=== PATIENT | female | born 1970 | race Caucasian/White ===

== ENCOUNTER 2019-07-11 13:20 | Emergency (ER) | payer OTHER ==
[~2019-07-11] VITALS: Ht 172.7 cm; Wt 66.7 kg
[~2019-07-11 13:20] MED LIST: DEPO-SUBQ104 MG/0.6 SUB-Q; NORCO 7.5-3251 EACH PO
--- NOTE | 2019-07-11 19:05 | EKG ---
[facility] [address] [facility] [place], [place] [address] Signed Normal sinus rhythm Low voltage QRS Borderline ECG No previous ECGs available Confirmed by PITER MOULTON DO ([id number]) on 07/11/2019 7:05:13 PM Electronically Signed By: PITER MOULTON DO 07/11/19 1905 PATIENT NAME: DEVIKA CHAPMAN Electrocardiogram DATE OF : 68 PHYSICIAN: PITER MOULTON DO REPORT #: [id number] REPORT IS CONFIDENTIAL AND NOT TO BE RELEASED WITHOUT AUTHORIZATION
== END 2019-07-11 19:10 | disposition short-term general hospital (02) ==
LOC: ED 13:20
DX: A41.9 Sepsis, unspecified organism (principal); S22.42XA Multiple fractures of ribs, left side, initial encounter for closed fracture; J93.9 Pneumothorax, unspecified; N13.2 Hydronephrosis with renal and ureteral calculous obstruction; W22.8XXA Striking against or struck by other objects, initial encounter; F17.200 Nicotine dependence, unspecified, uncomplicated
CPT/HCPCS: 71260; 74177; 80053; 81001; 83605; 84484; 85025; 85379; 87088; 93005; 93010; 99285-25; 99406; J0696; J1170; J1885; J2405; J7030; Q9967

== ENCOUNTER 2019-07-25 10:24 | Emergency (ER) | payer OTHER ==
[~2019-07-25] VITALS: Ht 172.7 cm; Wt 65.8 kg
--- OUTSIDE RECORDS SUMMARY | ~2019-07-25 | XMS | Encounter Summary ---
Demographics + + + | Address | [address] | | | [place] [address] | + + + | Home Phone | | + + + | Preferred Language | Unknown | + + + | Marital Status | Single | + + + | Gnosticism Affiliation | Unknown | + + + | Race | Unknown | + + + | Ethnic Group | Unknown | + + + Author + + + | Author | [facility] | | | and [place] | + + + | Organization | [facility] | | | and [place] | + + + | Address | Unknown | + + + | Phone | Unavailable | + + + Support + + +---------+ + | Name | Relationship | Address | Phone | + + +---------+ + | Lashonda Gómez | ECON | Unknown | | + + +---------+ + Care Team Providers + +------+ + | Care Accounting Machine Servicer Name | Role | Phone | + +------+ + PCP | Unavailable | + +------+ + Encounter Details +--------+ + + + + | Date | Type | Department | Care Team | Description | +--------+ + + + + | 12/18/ | Hospital | [facility] | Corey Sorensen | | | 1998 | Encounter | CONVERSION [address] | [address] | | | | | [place] | [place] | | | | | [place], [place] | [place] [address] | | | | | [address] | [phone] | | | | | [phone] | | | +--------+ + + + + Social History + +-------+ +--------+------+ | Tobacco Use | Types | Packs/Day | Years | Date | | | | | Used | | + +-------+ +--------+------+ | Never Assessed | | | | | + +-------+ +--------+------+ + + + | Sex Assigned at | Date Recorded | | | | + + + | Not on file | | + + + + + + + | Job Start Date | Occupation | Industry | + + + + | Not on file | Not on file | Not on file | + + + + + + + + | Travel History | Travel Start | Travel End | + + + + + + | No recent travel history available. | + + documented as of this encounter Plan of Treatment Not on filedocumented as of this encounter Visit Diagnoses Not on filedocumented in this encounter"
--- OUTSIDE RECORDS SUMMARY | ~2019-07-25 | XMS | Encounter Summary ---
Demographics + + + | Address | [address] | | | [place] [address] | + + + | Home Phone | | + + + | Preferred Language | Unknown | + + + | Marital Status | Single | + + + | Caodaism Affiliation | NRP | + + + | Race | Unknown | + + + | Ethnic Group | or | + + + Author + + + | Author | [facility] | + + + | Organization | [facility] | + + + | Address | Unknown | + + + | Phone | Unavailable | + + + Support + + +---------+ + | Name | Relationship | Address | Phone | + + +---------+ + | Lashonda Gómez | ECON | Unknown | | + + +---------+ + Care Team Providers + +------+ + | Care Horticultural Specialty Grower Field Name | Role | Phone | + +------+ + | Evi Pozo MD | PCP | | + +------+ + Encounter Details +--------+--------+ + + + | Date | Type | Department | Care Team | Description | +--------+--------+ + + + | 07/11/ | Intake | Transfer Center | | N/A | | 2019 | | [address] | | | | | | [place], | | | | | | [place] [address] | | | +--------+--------+ + + + Social History + +-------+ [...] as of this encounter Plan of Treatment +--------+---------+ + + + | Date | Type | Specialty | Care Team | Description | +--------+---------+ + + + | 08/02/ | Office | Urology | Jc Kovacs MD | | | 2018 | Visit | | [address] | | | | | | [place], [place] | | | | | | [address] | | | | | | [phone] | | | | | | | | +--------+---------+ + + + | 08/02/ | Office | Pre-operative | [address], [facility] [address] | | | 2019 | Visit | Medicine | [address] | | | | | | [place] [address] | | +--------+---------+ + + + documented as of this encounter Visit Diagnoses Not on filedocumented in this encounter"
--- OUTSIDE RECORDS SUMMARY | ~2019-07-25 | XMS | Clinical Summary ---
Demographics + + + | Address | [address] | | | [place] [address] | + + + | Home Phone | | + + + | Preferred Language | Unknown | + + + | Marital Status | Single | + + + | Episcopalian Affiliation | NRP | + + + | Race | Unknown | + + + | Ethnic Group | or | + + + Author + + + | Author | [facility] | + + + | Organization | [facility] | + + + | Address | Unknown | + + + | Phone | Unavailable | + + + Support + + +---------+ + | Name | Relationship | Address | Phone | + + +---------+ + | Lashonda Gómez | ECON | Unknown | | + + +---------+ + Care Team Providers + +------+ + | Care Transport Conductor Name | Role | Phone | + +------+ + | Evi Pozo MD | PCP | | + +------+ + Source Comments VIKKI is fully live on both [facility] and [facility] InPatient.[facility] Allergies No Known Allergies Medications + + + +---------+------+------+-------+ | Medication | Sig | Dispensed | Refills | Star | End | Statu | | | | | | t | Date | s | | | | | | Date | | | + + + +---------+------+------+-------+ | acetaminophen 500 | Take 2 tablets by | | 0 | 11/2 | | Activ | | mg oral tablet | mouth three times | | | 1/20 | | e | | | daily. | | | 19 | | | + + + +---------+------+------+-------+ | oxyCODONE | Take 1 tablet by | 5 | 0 | 11/2 | | Activ | | (immediate release) | mouth every six | tablet | | 1/20 | | e | | 5 mg oral tablet | hours as needed for | | | 19 | | | | | breakthrough pain. | | | | | | + + + +---------+------+------+-------+ | senna-docusate | Take 1 tablet by | 40 | 0 | 11/2 | | Activ | | (SENNA-S) 8.6-50 mg | mouth two times | tablet | | 1/20 | | e | | oral tablet | daily. | | | 19 | | | + + + +---------+------+------+-------+ | | Take 1 tablet by | 28 | 0 | 11/2 | 12/0 | Activ | | trimethoprim-sulfame | mouth two times | tablet | | 2/20 | 6/20 | e | | thoxazole 160-800 mg | daily for 14 days. | | | 19 | 19 | | | oral | Indications: UTI | | | | | | | tabletIndications: | | | | | | | | urinary tract | | | | | | | | infection | | | | | | | + + + +---------+------+------+-------+ | cefDINir 300 mg | Take 1 capsule by | 6 | 0 | 06/24 | 06/24 | Expir | | oral capsule | mouth two times | capsule | | 09/11 | 12/10 | ed | | | daily for 3 days. | | | 19 | 19 | | + + + +---------+------+------+-------+ Active Problems + + + | Problem | Noted Date | + + + | Syncope, unspecified syncope type | 07/12/2019 | + + + | Closed fracture of multiple ribs of left side, initial encounter | 07/12/2019 | + + + | Pneumothorax, unspecified type | 07/12/2019 | + + + | Nephrolithiasis | 07/12/2019 | + + + | Hydronephrosis with urinary obstruction due to ureteral calculus | 07/12/2019 | + + + Encounters +--------+ + + + + | Date | Type | Specialty | Care Team | Description | +--------+ + + + + | 07/24/ | Telephone | Urology | Jc Kovacs MD | Nausea and vomiting | | 2018 | | | | | +--------+ + + + + | 07/17/ | Telephone | Urology | Jc Kovacs MD | Needs Paperwork | | 2018 | | | | | +--------+ + + + + | 07/14/ | Refill | Urology | Melania Spaulding MD | Medication | | 2018 | | | | Adjustment (Based | | | | | | off new growth in | | | | | | urine culture) | +--------+ + + + + | 07/14/ | Classer | Urology | Jc Kovacs MD | Kidney stone on left | | 2018 | | | | side (Primary Dx) | +--------+ + + + + | 07/13/ | Telephone | Obstetrics & | Juan Hernandez, | Care Coordination | | 2019 | | Gynecology | RN | | +--------+ + + + + | 07/13/ | Pharmacy | | | | | 2018 | Visit | | | | +--------+ + + + + | 07/12/ | Travel | | | | | 2019 | | | | | +--------+ + + + + | 07/11/ | Hospital | Adult Acute Care | Beto Momin MD | | | 2019 - | Encounter | | Lisa Jalloh | | | | | | Jamilah Levin | | | 07/13/ | | | DO Chloe | | | 2018 | | | | | +--------+ + + + + | 07/11/ | Intake | | | N/A | | 2019 | | | | | +--------+ + + + + from Last 3 Months Social History + +-------+ +--------+------+ | Tobacco [...] recent travel history available. | + + Last Filed Vital Signs + + + + + | Vital Sign | Reading | Time Taken | Comments | + + + + + | Blood Pressure | 97/63 | 07/13/2019 8:44 AM | | | | | PST | | + + + + + | Pulse | 70 | 07/13/2019 8:44 AM | | | | | PST | | + + + + + | Temperature | 36.6 C (97.9 F) | 07/13/2019 8:44 AM | | | | | PST | | + + + + + | Respiratory Rate | 16 | 07/13/2019 8:44 AM | | | | | PST | | + + + + + | Oxygen Saturation | 98% | 07/13/2019 8:44 AM | | | | | PST | | + + + + + | Inhaled Oxygen | - | - | | | Concentration | | | | + + + + + | Weight | - | - | | + + + + + | Height | - | - | | + + + + + | Body Mass Index | - | - | | + + + + + Plan of Treatment +--------+---------+ + + + | Date | Type | Specialty | Care Team | Description | +--------+---------+ + + + | 08/02/ | Office | Urology | Duty, Jc Nunn MD | | | 2019 | Visit | | [address] | | | | | | [place], [place] | | | | | | [address] | | | | | | [phone] | | | | | | | | +--------+---------+ + + + | 08/02/ | Office | Pre-operative | 3, [facility] [address] | | | 2019 | Visit | Medicine | [address] | | | | | | [place] [address] | | +--------+---------+ + + + + + + + + | Health Maintenance | Due Date | Last Done | Comments | + + + + + | Influenza (Flu) | | 07/13/2009 | | | vaccination (#1) | 9 | | | + + + + + | Pneumococcal | Aged Out | | No longer eligible | | vaccination | | | based on patient's | | | | | age to complete this | | | | | topic | + + + + + Procedures + +--------+ + + + | Procedure Name | Priori | Date/Time | Associated Diagnosis | Comments | | | ty | | | | + +--------+ + + + | CBC (HEMOGRAM) ONLY | Urgent | 07/13/2019 | | Results for this | | | | 4:39 AM | | procedure are in the | | | | PST | | results section. | + +--------+ + + + | BASIC METABOLIC SET | Urgent | 07/13/2019 | | Results for this | | (NA, K, CL, TCO2, | | 4:39 AM | | procedure are in the | | BUN, CR, GLU, CA) | | PST | | results section. | + +--------+ + + + | CBC ONLY | Urgent | 07/13/2019 | | Results for this | | | | 4:39 AM | | procedure are in the | | | | PST | | results section. | + +--------+ + + + | URINE CULTURE WORKUP | Routin | 07/12/2019 | | Results for this | | | e | 3:43 PM | | procedure are in the | | | | PST | | results section. | + +--------+ + + + | CULTURE, URINE [facility] | Routin | 07/12/2019 | | Results for this | | | e | 3:43 PM | | procedure are in the | | | | PST | | results section. | + +--------+ + + + | CULTURE, URINE BACTI | Routin | 07/12/2019 | | Results for this | | | e | 3:43 PM | | procedure are in the | | | | PST | | results section. | + +--------+ + + + | IR NEPHROSTOMY | Urgent | 07/12/2019 | | Results for this | | PLACEMENT | | 3:34 PM | | procedure are in the | | | | PST | | results section. | + +--------+ + + + | HCG URINE, POC | Urgent | 07/12/2019 | Syncope, | Results for this | | | | 12:11 PM | unspecified syncope | procedure are in the | | | | PST | type | results section. | + +--------+ + + + | BASIC METABOLIC SET | Urgent | 07/12/2019 | | Results for this | | (NA, K, CL, TCO2, | | 5:07 AM | | procedure are in the | | BUN, CR, GLU, CA) | | PST | | results section. | + +--------+ + + + | CONFIRMATORY ABO/RH | Urgent | 07/12/2019 | | Results for this | | | | 1:21 AM | | procedure are in the | | | | PST | | results section. | + +--------+ + + + | 12 LEAD ECG | Routin | 07/11/2019 | | Results for this | | | e | 10:43 PM | | procedure are in the | | | | PST | | results section. | + +--------+ + + + | X-RAY PORTABLE CHEST | Urgent | 07/11/2019 | | Results for this | | 1 VIEW | | 10:38 PM | | procedure are in the | | | | PST | | results section. | + +--------+ + + + | CULTURE, URINE [facility] | Routin | 07/11/2019 | | Results for this | | | e | 10:31 PM | | procedure are in the | | | | PST | | results section. | + +--------+ + + + | CBC (HEMOGRAM) ONLY | Urgent | 07/11/2019 | | Results for this | | | | 10:31 PM | | procedure are in the | | | | PST | | results section. | + +--------+ + + + | UA, DIPSTICK ONLY | Urgent | 07/11/2019 | | Results for this | | | | 10:31 PM | | procedure are in the | | | | PST | | results section. | + +--------+ + + + | TROPONIN I, PLASMA | Urgent | 07/11/2019 | | Results for this | | | | 10:31 PM | | procedure are in the | | | | PST | | results section. | + +--------+ + + + | URINE SCREEN FOR | Urgent | 07/11/2019 | | Results for this | | CULTURE | | 10:31 PM | | procedure are in the | | | | PST | | results section. | + +--------+ + + + | URINE, MICROSCOPIC | Urgent | 07/11/2019 | | Results for this | | EXAM | | 10:31 PM | | procedure are in the | | | | PST | | results section. | + +--------+ + + + | COAGULOPATHY PANEL | Urgent | 07/11/2019 | | Results for this | | (INR,APTT,FIBRINOGEN | | 10:31 PM | | procedure are in the | | ) | | PST | | results section. | + +--------+ + + + | CBC ONLY | Urgent | 07/11/2019 | | Results for this | | | | 10:31 PM | | procedure are in the | | | | PST | | results section. | + +--------+ + + + | ETHANOL (ALCOHOL), | Urgent | 07/11/2019 | | Results for this | | BLOOD | | 10:31 PM | | procedure are in the | | | | PST | | results section. | + +--------+ + + + | GLUCOSE, PLASMA | Urgent | 07/11/2019 | | Results for this | | | | 10:31 PM | | procedure are in the | | | | PST | | results section. | + +--------+ + + + | ANTIBODY SCREEN | Urgent | 07/11/2019 | | Results for this | | | | 10:29 PM | | procedure are in the | | | | PST | | results section. | + +--------+ + + + | ABO & RH TYPE | Urgent | 07/11/2019 | | Results for this | | | | 10:29 PM | | procedure are in the | | | | PST | | results section. | + +--------+ + + + | TYPE AND SCREEN | Urgent | 07/11/2019 | | Results for this | | | | 10:29 PM | | procedure are in the | | | | PST | | results section. | + +--------+ + + + | BG-LAC,POC ISTAT | Urgent | 07/11/2019 | | Results for this | | | | 10:21 PM | | procedure are in the | | | | PST | | results section. | + +--------+ + + + from Last 3 Months Results CBC (HEMOGRAM) ONLY (07/13/2019 4:39 AM PST)Only the most recent of 2 results within the t dominga period is included. + + + + + + | Component | Value | Ref Range | Performed | Pathologist | | | | | At | Signature | + + + + + + | WHITE CELL | 5.76 | 3.50 - 10.80 | [facility] | | | COUNT | | K/cu mm | LABORATORY | | | | | | SERVICES, | | | | | | CORE | | + + + + + + | RED CELL | 3.53 (L) | 4.00 - 5.20 | [facility] | | | COUNT | | M/cu mm | LABORATORY | | | | | | SERVICES, | | | | | | CORE | | + + + + + + | HEMOGLOBIN | 9.9 (L) | 12.0 - 16.0 | [facility] | | | | | g/dL | LABORATORY | | | | | | SERVICES, | | | | | | CORE | | + + + + + + | HEMATOCRIT | 31.7 (L) | 36.0 - 46.0 % | [facility] | | | | | | LABORATORY | | | | | | SERVICES, | | | | | | CORE | | + + + + + + | MCV | 89.8 | 80.0 - 100.0 fL | [facility] | | | | | | LABORATORY | | | | | | SERVICES, | | | | | | CORE | | + + + + + + | MCHC | 31.2 (L) | 32.0 - 36.0 | [facility] | | | | | g/dL | LABORATORY | | | | | | SERVICES, | | | | | | CORE | | + + + + + + | RDW SD | 43.2 | 35.1 - 46.3 fL | [facility] | | | | | | LABORATORY | | | | | | SERVICES, | | | | | | CORE | | + + + + + + | PLATELET | 376 | 150 - 400 K/cu | [facility] | | | COUNT | | mm | LABORATORY | | | | | | SERVICES, | | | | | | CORE | | + + + + + + | MPV | 9.4 (L) | 9.7 - 12.3 fL | [facility] | | | | | | LABORATORY | | | | | | SERVICES, | | | | | | CORE | | + + + + + + | NRBC% | 0.0 | 0.0 - 0.3 % | [facility] | | | | | | LABORATORY | | | | | | SERVICES, | | | | | | CORE | | + + + + + + | NRBC# | 0.00 | 0.00 - 0.02 | [facility] | | | | | K/cu mm | LABORATORY | | | | | | SERVICES, | | | | | | CORE | | + + + + + + + + | Specimen | + + | Blood - Blood | | (substance) | + + + + + + + | Performing | Address | City/State/Zipcode | Phone Number | | Organization | | | | + + + + + | [facility] | [phone] | [place] [address] | | | SERVICES, CORE | [address] | | | + + + + + BASIC METABOLIC SET (NA, K, CL, TCO2, BUN, CR, GLU, CA) (07/13/2019 4:39 AM PST)Only the m gatito recent of 2 results within the time period is included. + +---------+ + + + | Component | Value | Ref Range | Performed | Pathologist | | | | | At | Signature | + +---------+ + + + | GLUCOSE, | 116 (H) | 70 - 99 mg/dL | [facility] | | | PLASMA | | | LABORATORY | | | (LAB) | | | SERVICES, | | | | | | CORE | | + +---------+ + + + | BUN, PLASMA | 12 | 6 - 20 mg/dL | [facility] | | | (LAB) | | | LABORATORY | | | | | | SERVICES, | | | | | | CORE | | + +---------+ + + + | CREATININE | 1.09 | 0.60 - 1.10 | [facility] | | | PLASMA | | mg/dL | LABORATORY | | | (LAB) | | | SERVICES, | | | | | | CORE | | + +---------+ + + + | EGFR | >60 | >60 mL/min | [facility] | | | - | | | LABORATORY | | | KYRGYZ | | | SERVICES, | | | | | | CORE | | + +---------+ + + + | EGFR NON | 53 (L) | >60 mL/min | [facility] | | | -CLARE | | | LABORATORY | | | RICAN | | | SERVICES, | | | | | | CORE | | + +---------+ + + + | SODIUM, | 138 | 136 - 145 | [facility] | | | PLASMA | | mmol/L | LABORATORY | | | (LAB) | | | SERVICES, | | | | | | CORE | | + +---------+ + + + | POTASSIUM, | 3.6 | 3.4 - 5.0 | [facility] | | | PLASMA | | mmol/L | LABORATORY | | | (LAB) | | | SERVICES, | | | | | | CORE | | + +---------+ + + + | CHLORIDE, | 108 | 97 - 108 mmol/L | [facility] | | | PLASMA | | | LABORATORY | | | (LAB) | | | SERVICES, | | | | | | CORE | | + +---------+ + + + | TOTAL CO2, | 26 | 21 - 32 mmol/L | [facility] | | | PLASMA | | | LABORATORY | | | (LAB) | | | SERVICES, | | | | | | CORE | | + +---------+ + + + | CALCIUM, | 8.6 | 8.6 - 10.2 | [facility] | | | PLASMA | | mg/dL | LABORATORY | | | (LAB) | | | SERVICES, | | | | | | CORE | | + +---------+ + + + | ANION GAP | 4 | 4 - 11 mmol/L | [facility] | | | | | | LABORATORY | | | | | | SERVICES, | | | | | | CORE | | + +---------+ + + + | POTASSIUM | No Hemo | | [facility] | | | CMNT | | | LABORATORY | | | | | | SERVICES, | | | | | | CORE | | + +---------+ + + + + + | Specimen | + + | Blood - Blood | | (substance) | + + + + + | Narrative | Performed At | + + + | GFR is estimated using the MDRD equation recommended by the National | [facility] | | Kidney Disease Education Program. Estimated GFR Interpretive | LABORATORY | | Information: <60 mL/min/1.73 sq m Chronic Kidney | SERVICES, CORE | | Disease <15 mL/min/1.73 sq m Kidney Failure | | | Estimated GFR greater than 60 mL/min/1.73 sq m is of limited clinical | | | value. The MDRD equation is not valid in the following situations: | | | - Patients under 18 years of age - Severe malnutrition or obesity | | | - Vegetarian diet - Rapidly changing kidney function - Amputees, | | | paraplegics, or other muscle-wasting diseases | | + + + + + + + + | Performing | Address | City/State/Zipcode | Phone Number | | Organization | | | | + + + + + | [facility] | [address] | [place] [address] | | | SERVICES, CORE | [address] | | | + + + + + URINE CULTURE WORKUP (07/12/2019 3:43 PM PST) + + + + + + | Component | Value | Ref Range | Performed | Pathologist | | | | | At | Signature | + + + + + + | CULTURE | Coagulase negative | | [facility] | | | RESULT | staphylococcus species | | [facility] - | | | | (A) | | [facility] | | + + + + + + + + | Specimen | + + | Urine - Left kidney | | structure (body | | structure) | + + + + + | Narrative | Performed At | + + + | Culture Report: 30,000 cfu/ml Coagulase negative Staphylococcus | [facility] | | species | [facility] | | | [place] | + + + + + + + + | Organism | Antibiotic | Method | Susceptibility | + + + + + | Coagulase negative | Cefazolin | [facility] | Sensitive | | staphylococcus | | | | | species | | | | + + + + + | Coagulase negative | Nitrofurantoin | [facility] | Sensitive | | staphylococcus | | | | | species | | | | + + + + + | Coagulase negative | Oxacillin | [facility] | Sensitive | | staphylococcus | | | | | species | | | | + + + + + | Coagulase negative | Trimethoprim/Sulfa | [facility] | Sensitive | | staphylococcus | | | | | species | | | | + + + + + | Coagulase negative | Tetracycline | [facility] | Sensitive | | staphylococcus | | | | | species | | | | + + + + + | Coagulase negative | Vancomycin | [facility] | Sensitive | | staphylococcus | | | | | species | | | | + + + + + + + + + + | Performing | Address | City/State/Zipcode | Phone Number | | Organization | | | | + + + + + | [facility] | [address] | [place] [address] | | | [place] | | | | + + + + + CULTURE, URINE [facility] (07/12/2019 3:43 PM PST)Only the most recent of 2 results within the period is included. + + + + + + | Component | Value | Ref Range | Performed | Pathologist | | | | | At | Signature | + + + + + + | URINE | See Cx Results (A) | | [facility] | | | CULTURE | | | LABORATORY | | | [facility] | | | SERVICES, | | | | | | CORE | | + + + + + + + + | Specimen | + + | Urine - Left kidney | | structure (body | | structure) | + + + + + + + | Performing | Address | City/State/Zipcode | Phone Number | | Organization | | | | + + + + + | [facility] | [address] | [place] [address] | | | SERVICES, CORE | [address] | | | + + + + + IR NEPHROSTOMY PLACEMENT (07/12/2019 3:34 PM PST) + + | Specimen | + + | | + + + + + | Narrative | Performed At | + + + | Procedure: Left nephrostomy tube placement Primary can sorter: | [facility] | | Renny Arriaga MD Manager Wastewater attending can sorter: Shawn Macias VOICE | | Yung Balderas M.D. Preoperative diagnosis: Obstructive hydronephrosis | RECOGNITION 2 | | Postoperative diagnosis: Pyonephrosis + Operations: Operation | | | 1. [Ultrasound-guided access left mid- pole reji] Operation 2. | | | [10-Lao nephrostomy tube left renal pelvis Indications: | | | 48 year female with known obstructing calculus in the L renal pelvis | | | with recent syncopal episode concerning for infection Procedure: | | | The patient, procedure, and allergies were confirmed in the | | | presence of the patient by the attending.The attending physician was | | | present for the entire procedure. Written informed consent was | | | obtained in a PARQ conference with the patient. The procedure was | | | performed [with intravenous sedation]. The patient was prepped and | | | draped in the usual manner. The left collecting system was localized | | | with ultrasound and an image archived. Utilizing a local anesthetic | | | a [Chiba needle was advanced under ultrasound guidance into the left | | | mid pole reji. We tried to target an upper pole calyx. Clear urine | | | was initially obtained. A microwire was introduced allowing | | | placement of the 5-Lao coaxial access sheath. Contrast was | | | injected. Using flouroscopic guidance dilatation was performed over | | | a Amplatz guidewire with an 10-Lao dilator and an 10-Lao | | | multipurpose catheter was inserted with the pigtail formed in the | | | renal pelvis. The catheter was aspirated and fluid sent for culture. | | | Digital images were archived throughout the procedure. The | | | nephrostomy was sutured in place and placed to gravity drainage.] | | | Total fluoroscopic time: 2.7[ Fluoro frame rate: [7] Total | | | contrast: 10] The patient was evaluated and I determined that the | | | patient was appropriate for Moderate Sedation. Moderate sedation was | | | directly supervised by the attending physician and administered by IR | | | RN. Intra-service kccr-gu-[id number] start time: 14:55 Intra-service | | | rtwq-fp-klaw end time: 15:35 Versed 3 mg Fentanyl 150mcg Cipro 400 | | | mg Findings: [Left: There is hydronephrosis and hydroureter | | | with obstruction at the []. Clear urine was obtained initially, but | | | was later cloudy consistent with infection. The two large stones | | | were displace when forming the pigtail of the catheter. After | | | placement of the nephrostomy the urine is slightly blood-tinged and | | | there is moderate clot in the collecting system. A formal | | | nephrostogram was not performed.] Impression: 1. Left | | | pyonephrosis 2. Percutaneous placement left 10-Lao | | | nephrostomy tube via mid-pole calyx I have personally reviewed the | | | images and, if necessary, edited the report. I agree with the report | | | as now presented. Final signature: Yung Macias MD 07/14/2019 | | | 5:13 PM Preliminary: Yung Macias MD Dictation initiated: | | | Yung Macias MD 07/14/2019 3:29 PM | | + + + + + | Procedure Note | + + | Service Account, Radiant Res In Interface - 07/14/2019 5:14 PM PST Procedure: Left | | nephrostomy tube placement Primary can sorter: Renny Arriaga MD Manager Wastewater attending | | can sorter: Yung Macias M.D. Preoperative diagnosis: Obstructive hydronephrosis | | Postoperative diagnosis: Pyonephrosis+Operations: Operation 1. [Ultrasound-guided | | access left mid- pole reji] Operation 2. [10-Lao nephrostomy tube left renal pelvis | | Indications: 48 year female with known obstructing calculus in the L renal pelvis with | | recent syncopal episode concerning for infection Procedure: The patient, procedure, and | | allergies were confirmed in the presence of the patient by the attending.The attending | | physician was present for the entire procedure. Written informed consent was obtained in | | a PARQ conference with the patient. The procedure was performed [with intravenous | | sedation]. The patient was prepped and draped in the usual manner. The left collecting | | system was localized with ultrasound and an image archived. Utilizing a local | | anesthetic a [Chiba needle was advanced under ultrasound guidance into the left mid pole | | reji. We tried to target an upper pole calyx. Clear urine was initially obtained. A | | microwire was introduced allowing placement of the 5-Lao coaxial access sheath. | | Contrast was injected. Using flouroscopic guidance dilatation was performed over a | | Amplatz guidewire with an 10-Lao dilator and an 10-Lao multipurpose catheter was | | inserted with the pigtail formed in the renal pelvis. The catheter was aspirated and | | fluid sent for culture. Digital images were archived throughout the procedure. The | | nephrostomy was sutured in place and placed to gravity drainage.] Total fluoroscopic | | time: 2.7[ Fluoro frame rate: [7]Total contrast: 10] The patient was evaluated and I | | determined that the patient was appropriate for Moderate Sedation. Moderate sedation was | | directly supervised by the attending physician and administered by IR RN.Intra-service | | xgjh-xz-nial start time: 14:55Intra-service mrea-dr-gupd end time: 15:35Versed 3 | | mgFentanyl 150mcgCipro 400 mg Findings: [Left: There is hydronephrosis and hydroureter | | with obstruction at the []. Clear urine was obtained initially, but was later cloudy | | consistent with infection. The two large stones were displace when forming the pigtail | | of the catheter. After placement of the nephrostomy the urine is slightly blood-tinged | | and there is moderate clot in the collecting system. A formal nephrostogram was not | | performed.] Impression: 1. Left pyonephrosis 2. Percutaneous placement left | | 10-Lao nephrostomy tube via mid-pole calyx I have personally reviewed the images and, | | if necessary, edited the report. I agree with the report as now presented. Final | | signature: Yung Macias MD 07/14/2019 5:13 PM Preliminary: Yung Macias MD | | Dictation initiated: Yung Macias MD 07/14/2019 3:29 PM | |The patient was evaluated and I determined that the patient was appropriate for Moderate Se dation. | |Moderate sedation was directly supervised by the attending physician and administered by IR LISA. | |Intra-service vtkw-rc-etje start time: 14:55 | |Intra-service lbfu-rm-bibw end time: 15:35 | |Versed 3 mg | |Fentanyl 150mcg | |Cipro 400 mg | | | |Findings: | | | |[Left: There is hydronephrosis and hydroureter with obstruction at the []. Clear urine was obtained initially, but was later cloudy consistent with infection. The two large stones w ere displace when forming the pigtail of | |the catheter. After placement of the nephrostomy the urine is slightly blood-tinged and th ere is moderate clot in the collecting system. A formal nephrostogram was not performed.] | | | | | | | | | |Impression: | | | |1. Left pyonephrosis | | | |2. Percutaneous placement left 10-Lao nephrostomy tube via mid-pole calyx | | | |I have personally reviewed the images and, if necessary, edited the report. I agree with e report as now presented. | | | |Final signature: Yung Macias MD 07/14/2019 5:13 PM | |Preliminary: Yung Macias MD | |Dictation initiated: Yung Macias MD 07/14/2019 3:29 PM | + + + +---------+ + + | Performing | Address | City/State/Zipcode | Phone Number | | Organization | | | | + +---------+ + + | [facility] | | | | | VOICE RECOGNITION 2 | | | | + +---------+ + + HCG URINE, POC (07/12/2019 12:11 PM PST) + + + + + + | Component | Value | Ref Range | Performed | Pathologist | | | | | At | Signature | + + + + + + | HCG URINE, | Negative | Negative | [facility] - | | | POC | | | [facility] | | | | | | [facility] | | | | | | OF CARE | | | | | | TESTS | | + + + + + + + + | Specimen | + + | Urine - Urine | | (substance) | + + + + + + + | Performing | Address | City/State/Zipcode | Phone Number | | Organization | | | | + + + + + | [facility] | [address] | [place], [place] | | | [facility] | [address] | [address] | | | TESTS | | | | + + + + + CONFIRMATORY ABO/RH (07/12/2019 1:21 AM PST) + + + + + + | Component | Value | Ref Range | Performed | Pathologist | | | | | At | Signature | + + + + + + | ABO Group | A | | [facility] | | | | | | [facility] | | | | | | SERVICES, | | | | | | TRANSFUSION | | | | | | MEDICINE | | + + + + + + | Rh Type | Positive | | [facility] | | | | | | LABORATORY | | | | | | SERVICES, | | | | | | TRANSFUSION | | | | | | MEDICINE | | + + + + + + + + | Specimen | + + | Blood - Blood | | (substance) | + + + + + + + | Performing | Address | City/State/Zipcode | Phone Number | | Organization | | | | + + + + + | [facility] | [address] | [place] [address] | | | SERVICES, | [address] | | | | TRANSFUSION MEDICINE | | | | + + + + + 12 LEAD ECG (07/11/2019 10:43 PM PST) + + + + + + | Component | Value | Ref Range | Performed | Pathologist | | | | | At | Signature | + + + + + + | VENTRICULAR | 76 | bpm | [facility] | | | RATE | | | OF | | | | | | CARDIOLOGY | | + + + + + + | ATRIAL RATE | 77 | ms | [facility] | | | | | | OF | | | | | | CARDIOLOGY | | + + + + + + | P-R | 159 | ms | [facility] | | | INTERVAL | | | OF | | | | | | CARDIOLOGY | | + + + + + + | P AXIS | 7 | deg | [facility] | | | | | | OF | | | | | | CARDIOLOGY | | + + + + + + | QRS | 93 | ms | [facility] | | | DURATION | | | OF | | | | | | CARDIOLOGY | | + + + + + + | QT | 385 | ms | [facility] | | | | | | OF | | | | | | CARDIOLOGY | | + + + + + + | QTCB | 434 | ms | [facility] | | | | | | OF | | | | | | CARDIOLOGY | | + + + + + + | R AXIS | -21 | deg | [facility] | | | | | | OF | | | | | | CARDIOLOGY | | + + + + + + | T AXIS | -1 | deg | [facility] | | | | | | OF | | | | | | CARDIOLOGY | | + + + + + + | ECG | Sinus rhythm | | [facility] | | | IMPRESSION | | | OF | | | | | | CARDIOLOGY | | + + + + + + | ECG | Low voltage, precordial | | [facility] | | | IMPRESSION | leads- OTHERWISE NORMAL | | OF | | | | ECG - | | CARDIOLOGY | | + + + + + + | ECG | Electronically signed | | [facility] | | | IMPRESSION | by: DEREK OROZCO | | OF | | | | 07-12-2019 05:50:10 | | CARDIOLOGY | | + + + + + + + + | Specimen | + + | | + + + + + | Narrative | Performed At | + + + | | | + + + + + + + + | Performing | Address | City/State/Zipcode | Phone Number | | Organization | | | | + + + + + | [facility] | [address] | [place], [place] | | | CARDIOLOGY | [address] | [address] | | + + + + + X-RAY PORTABLE CHEST 1 VIEW (07/11/2019 10:38 PM PST) + + | Specimen | + + | | + + + + + | Narrative | Performed At | + + + | EXAM: PA CHEST 1 VIEW HISTORY: Syncope, ground-level fall | [facility] | | COMPARISON: Outside CT earlier today FINDINGS: The | RADIOLOGY VOICE | | cardiomediastinal contour is normal. The lungs are clear. There is no | RECOGNITION 2 | | pleural effusion or pneumothorax. There is no pulmonary edema. The | | | bones are intact. IMPRESSION: Clear lungs. No acute | | | radiographic abnormality. I have personally reviewed the images | | | and, if necessary, edited the report. I agree with the report as now | | | presented. Final signature: Gibran Rehman MD 07/12/2019 7:38 | | | AM Preliminary: Gibran Rehman MD Dictation initiated: Gibran Rehman MD 07/12/2019 7:37 AM | | + + + + + | Procedure Note | + + | Service Account, Radiant Res In Interface - 07/12/2019 7:39 AM PST EXAM: PA CHEST 1 | | VIEW HISTORY: Syncope, ground-level fall COMPARISON: Outside CT earlier today | | FINDINGS: The cardiomediastinal contour is normal. The lungs are clear. There is no | | pleural effusion or pneumothorax. There is no pulmonary edema. The bones are intact. | | IMPRESSION: Clear lungs. No acute radiographic abnormality. I have personally reviewed | | the images and, if necessary, edited the report. I agree with the report as now | | presented. Final signature: Gibran Rehman MD 07/12/2019 7:38 AM Preliminary: Gibran | | MD Sherie Dictation initiated: Gibran Rehman MD 07/12/2019 7:37 AM | |The cardiomediastinal contour is normal. The lungs are clear. There is no pleural effusion or pneumothorax. There is no pulmonary edema. The bones are intact. | | | |IMPRESSION: | | | |Clear lungs. No acute radiographic abnormality. | | | |I have personally reviewed the images and, if necessary, edited the report. I agree with th e report as now presented. | | | |Final signature: Gibran Rehman MD 07/12/2019 7:38 AM | |Preliminary: Gibran Rehman MD | |Dictation initiated: Gibran Rehman MD 07/12/2019 7:37 AM | + + + +---------+ + + | Performing | Address | City/State/Zipcode | Phone Number | | Organization | | | | + +---------+ + + | [facility] | | | | | VOICE RECOGNITION 2 | | | | + +---------+ + + TROPONIN I, PLASMA (07/11/2019 10:31 PM PST) + +-------+ + + + | Component | Value | Ref Range | Performed | Pathologist | | | | | At | Signature | + +-------+ + + + | TROPONIN I | <0.02 | <0.80 ng/mL | [facility] | | | | | | LABORATORY | | | | | | SERVICES, | | | | | | CORE | | + +-------+ + + + + + | Specimen | + + | Blood - Blood | | (substance) | + + + + + + + | Performing | Address | City/State/Zipcode | Phone Number | | Organization | | | | + + + + + | [facility] | [address] | [place] [address] | | | [place] [address] | [address] | | | + + + + + UA, DIPSTICK ONLY (07/11/2019 10:31 PM PST) + + + + + + | Component | Value | Ref Range | Performed | Pathologist | | | | | At | Signature | + + + + + + | COLOR(UR) | Yellow | | [facility] | | | | | | LABORATORY | | | | | | SERVICES, | | | | | | CORE | | + + + + + + | APPEARANCE | Clear | | [facility] | | | | | | LABORATORY | | | | | | SERVICES, | | | | | | CORE | | + + + + + + | GLUCOSE(UR) | Negative | Negative, 50.0 | [facility] | | | | | mg/dL | LABORATORY | | | | | | SERVICES, | | | | | | CORE | | + + + + + + | PROTEIN(LAB | Negative | Negative, 30.0 | [facility] | | | ) | | mg/dL | LABORATORY | | | | | | SERVICES, | | | | | | CORE | | + + + + + + | BILIRUBIN | Negative | Negative | [facility] | | | | | | LABORATORY | | | | | | SERVICES, | | | | | | CORE | | + + + + + + | UROBILINOGE | <2.0 | <2.0 mg/dL | [facility] | | | N | | | LABORATORY | | | | | | SERVICES, | | | | | | CORE | | + + + + + + | PH(UR) | 7.0 | 5.0 - 8.0 | [facility] | | | | | | LABORATORY | | | | | | SERVICES, | | | | | | CORE | | + + + + + + | BLOOD | Small (A) | Negative | [facility] | | | | | | LABORATORY | | | | | | SERVICES, | | | | | | CORE | | + + + + + + | KETONES | Negative | Negative mg/dL | [facility] | | | | | | LABORATORY | | | | | | SERVICES, | | | | | | CORE | | + + + + + + | NITRITES | Negative | Negative | [facility] | | | | | | LABORATORY | | | | | | SERVICES, | | | | | | CORE | | + + + + + + | LEUKOCYTE | Moderate (A) | Negative | [facility] | | | ESTERASE | | | LABORATORY | | | | | | SERVICES, | | | | | | CORE | | + + + + + + | SPECIFIC | 1.020Comment: Specific | 1.005 - 1.030 | [facility] | | | GRAVITY | [place] performed by | | LABORATORY | | | | refractometry | | SERVICES, | | | | | | CORE | | + + + + + + + + | Specimen | + + | Urine - Catheter - | | straight | + + + + + + + | Performing | Address | City/State/Zipcode | Phone Number | | Organization | | | | + + + + + | [facility] | [address] | [place] [address] | | | SERVICES, CORE | [address] | | | + + + + + URINE, MICROSCOPIC EXAM (07/11/2019 10:31 PM PST) + +-------+ + + + | Component | Value | Ref Range | Performed | Pathologist | | | | | At | Signature | + +-------+ + + + | RED CELLS | 1 | 0 - 3 /hpf | [facility] | | | | | | LABORATORY | | | | | | SERVICES, | | | | | | CORE | | + +-------+ + + + | WHITE CELLS | 7 (H) | 0 - 5 /hpf | [facility] | | | | | | LABORATORY | | | | | | SERVICES, | | | | | | CORE | | + +-------+ + + + | BACTERIA | None | None /hpf | [facility] | | | | | | LABORATORY | | | | | | SERVICES, | | | | | | CORE | | + +-------+ + + + | YEAST (LAB) | None | None /hpf | [facility] | | | | | | LABORATORY | | | | | | SERVICES, | | | | | | CORE | | + +-------+ + + + | SQUAMOUS | Few | None, Few /hpf | [facility] | | | EPITHELIAL | | | LABORATORY | | | | | | SERVICES, | | | | | | CORE | | + +-------+ + + + | MUCOUS | None | None, Few /hpf | [facility] | | | | | | LABORATORY | | | | | | SERVICES, | | | | | | CORE | | + +-------+ + + + | NON-SQUAMOU | None | None /hpf | [facility] | | | S EPITH | | | LABORATORY | | | | | | SERVICES, | | | | | | CORE | | + +-------+ + + + | HYALINE | 0 | 0 - 2 /lpf | [facility] | | | CASTS | | | LABORATORY | | | | | | SERVICES, | | | | | | CORE | | + +-------+ + + + | GRANULAR | 0 | 0 - 2 /lpf | [facility] | | | CASTS | | | LABORATORY | | | | | | SERVICES, | | | | | | CORE | | + +-------+ + + + | CELLULAR | 0 | <=0 /lpf | [facility] | | | CASTS | | | LABORATORY | | | | | | SERVICES, | | | | | | CORE | | + +-------+ + + + | TRIPLE P04 | None | None, Few /hpf | [facility] | | | CRYSTALS | | | LABORATORY | | | | | | SERVICES, | | | | | | CORE | | + +-------+ + + + | CALCIUM | None | None, Few /hpf | [facility] | | | OXALATE | | | LABORATORY | | | SAIRA | | | SERVICES, | | | | | | CORE | | + +-------+ + + + | URIC ACID | None | None, Few /hpf | [facility] | | | CRYSTALS | | | LABORATORY | | | | | | SERVICES, | | | | | | CORE | | + +-------+ + + + | AMORPHOUS | None | None, Few /hpf | [facility] | | | CRYSTALS | | | LABORATORY | | | | | | SERVICES, | | | | | | CORE | | + +-------+ + + + + + | Specimen | + + | Urine - Catheter - | | straight | + + + + + + + | Performing | Address | City/State/Zipcode | Phone Number | | Organization | | | | + + + + + | [facility] | [address] | [place] [address] | | | SERVICES, CORE | [address] | | | + + + + + URINE SCREEN FOR CULTURE (07/11/2019 10:31 PM PST) + + + + + + | Component | Value | Ref Range | Performed | Pathologist | | | | | At | Signature | + + + + + + | URINE | Sent for Culture (A) | Negative | [facility] | | | SCREEN FOR | | | LABORATORY | | | CULTURE | | | SERVICES, | | | | | | CORE | | + + + + + + + + | Specimen | + + | Urine - Catheter - | | straight | + + + + + | Narrative | Performed At | + + + | Culture Screen Positive, specimen sent for culture. | [facility] | | | LABORATORY | | | SERVICES, CORE | + + + + + + + + | Performing | Address | City/State/Zipcode | Phone Number | | Organization | | | | + + + + + | [facility] | [address] | [place] [address] | | | SERVICES, CORE | [address] | | | + + + + + COAGULOPATHY PANEL (INR,APTT,FIBRINOGEN) (07/11/2019 10:31 PM PST) + + + + + + | Component | Value | Ref Range | Performed | Pathologist | | | | | At | Signature | + + + + + + | INR | 1.17 | 0.90 - 1.20 INR | [facility] | | | | | | LABORATORY | | | | | | SERVICES, | | | | | | CORE | | + + + + + + | APTT | 23.0 (L) | 26.0 - 36.0 | [facility] | | | | | seconds | LABORATORY | | | | | | SERVICES, | | | | | | CORE | | + + + + + + | FIBRINOGEN | 676 (H) | 150 - 450 mg/dL | [facility] | | | LEVEL | | | LABORATORY | | | | | | SERVICES, | | | | | | CORE | | + + + + + + + + | Specimen | + + | Blood - Blood | | (substance) | + + + + + | Narrative | Performed At | + + + | INR Therapeutic ranges for full anticoagulation: INR for | [facility] | | Venous Thromboembolism (2.0 - 3.0) INR INR for | LABORATORY | | most patients with mech. valves (2.5 - 3.5) INR APTT values for | SERVICES, CORE | | monitoring heparin therapy may be affected by specimens processed >1 | | | hour after collection. APTT Therapeutic Range: | | | (75 - 120) sec Heparin levels of 0.35 - 0.7 U/mL | | | | | + + + + + + + + | Performing | Address | City/State/Zipcode | Phone Number | | Organization | | | | + + + + + | [facility] | [address] | [place] [address] | | | SERVICES, CORE | [address] | | | + + + + + ETHANOL (ALCOHOL), BLOOD (07/11/2019 10:31 PM PST) + +-------+ + + + | Component | Value | Ref Range | Performed | Pathologist | | | | | At | Signature | + +-------+ + + + | ETHANOL | <10 | <10 mg/dL | [facility] | | | (ALCOHOL) | | | LABORATORY | | | | | | SERVICES, | | | | | | CORE | | + +-------+ + + + + + | Specimen | + + | Blood - Blood | | (substance) | + + + + + + + | Performing | Address | City/State/Zipcode | Phone Number | | Organization | | | | + + + + + | [facility] | [address] | [place] [address] | | | SERVICES, CORE | [address] | | | + + + + + GLUCOSE, PLASMA (07/11/2019 10:31 PM PST) + +---------+ + + + | Component | Value | Ref Range | Performed | Pathologist | | | | | At | Signature | + +---------+ + + + | GLUCOSE, | 108 (H) | 70 - 99 mg/dL | [facility] | | | PLASMA | | | LABORATORY | | | (LAB) | | | SERVICES, | | | | | | CORE | | + +---------+ + + + + + | Specimen | + + | Blood - Blood | | (substance) | + + + + + + + | Performing | Address | City/State/Zipcode | Phone Number | | Organization | | | | + + + + + | [facility] | [address] | [place] [address] | | | SERVICES, CORE | [address] | | | + + + + + ANTIBODY SCREEN (07/11/2019 10:29 PM PST) + + + + + + | Component | Value | Ref Range | Performed | Pathologist | | | | | At | Signature | + + + + + + | Antibody | Negative | | [facility] | | | Screen | | | LABORATORY | | | | | | SERVICES, | | | | | | TRANSFUSION | | | | | | MEDICINE | | + + + + + + + + | Specimen | + + | Blood - Blood | | (substance) | + + + + + + + | Performing | Address | City/State/Zipcode | Phone Number | | Organization | | | | + + + + + | [facility] | [address] | [place] [address] | | | SERVICES, | [address] | | | | TRANSFUSION MEDICINE | | | | + + + + + ABO & RH TYPE (07/11/2019 10:29 PM PST) + + + + + + | Component | Value | Ref Range | Performed | Pathologist | | | | | At | Signature | + + + + + + | ABO Group | A | | [facility] | | | | | | LABORATORY | | | | | | SERVICES, | | | | | | TRANSFUSION | | | | | | MEDICINE | | + + + + + + | Rh Type | Positive | | [facility] | | | | | | LABORATORY | | | | | | SERVICES, | | | | | | TRANSFUSION | | | | | | MEDICINE | | + + + + + + + + | Specimen | + + | Blood - Blood | | (substance) | + + + + + + + | Performing | Address | City/State/Zipcode | Phone Number | | Organization | | | | + + + + + | [facility] | [address] | [place] [address] | | | DON | [address] | | | | TRANSFUSION MEDICINE | | | | + + + + + BG-LAC,POC ISTAT (07/11/2019 10:21 PM PST) + +---------+ + + + | Component | Value | Ref Range | Performed | Pathologist | | | | | At | Signature | + +---------+ + + + | TOTAL CO2 | 31 (H) | 23 - 29 mmol/L | [facility] - | | | [place], POC | | | [facility] | | | | | | [facility] | | | | | | OF CARE | | | | | | TESTS | | + +---------+ + + + | PH VENOUS, | 7.38 | 7.35 - 7.45 | [facility] - | | | POC | | | [facility] | | | | | | [facility] | | | | | | OF CARE | | | | | | TESTS | | + +---------+ + + + | PCO2 | 50 (H) | 35 - 50 mmHg | [facility] - | | | VENOUS, POC | | | [facility] | | | | | | [facility] | | | | | | OF CARE | | | | | | TESTS | | + +---------+ + + + | HCO3 | 30 (H) | 22 - 28 mmol/L | [facility] - | | | VENOUS, POC | | | [facility] | | | | | | [facility] | | | | | | OF CARE | | | | | | TESTS | | + +---------+ + + + | PO2 VENOUS, | <41 (L) | 30 - 55 mmHg | [facility] - | | | POC | | | [facility] | | | | | | [facility] | | | | | | OF CARE | | | | | | TESTS | | + +---------+ + + + | O2 SAT | 18 | 95 - 98 % | [facility] - | | | VENOUS, POC | | | [facility] | | | | | | [facility] | | | | | | OF CARE | | | | | | TESTS | | + +---------+ + + + | LACTATE | 1.4 | 0.5 - 2.0 | [facility] - | | | VENOUS, POC | | mmol/L | [facility] | | | | | | [facility] | | | | | | OF CARE | | | | | | TESTS | | + +---------+ + + + | PAT TEMP | 97.6 | | [facility] - | | | VENOUS,POC | | | [facility] | | | | | | [facility] | | | | | | OF CARE | | | | | | TESTS | | + +---------+ + + + | BASE EXCESS | 5.0 | -2 - 3 mmol/L | [facility] - | | | [place], POC | | | [facility] | | | | | | [facility] | | | | | | OF CARE | | | | | | TESTS | | + +---------+ + + + + + | Specimen | + + | | + + + + + + + | Performing | Address | City/State/Zipcode | Phone Number | | Organization | | | | + + + + + | [facility] | [address] | [place], [place] | | | [facility] | [address] | [address] | | | TESTS | | | | + + + + + from Last 3 Months Insurance +-------+--------+ +--------+ + +------+ | Payer | Benefi | Subscriber | Effect | Phone | Address | Type | | | t Plan | ID | naa | | | | | | / | | Dates | | | | | | Group | | | | | | +-------+--------+ +--------+ + +------+ | [employer] | [employer] | xxxxxxxxx | 08/23/19 | [phone] | [address] | PPO | | | [place] | | 19-Pre | 4 | [id number] | | | | [place] | | sent | | [place], | | | | | | | | [place] [address] | | +-------+--------+ +--------+ + +------+ + +--------+ +--------+ + + | Guarantor Name | Accoun | Relation to | Date | Phone | Billing Address | | | t Type | Patient | of | | | | | | | | | | + +--------+ +--------+ + + | Mya De Paz | Person | Self [birth year] | [address] | | [place] | al/Alberto | | 1971 | [phone] | [place] [address] | | | teodora | | | 7 (Home) | | + +--------+ +--------+ + + | Mya De Paz | Third | Self | [birth year] | [address] | | [place] | Democrat | | 1971 | [phone] | [place] [address] | | | [place] | | | 7 (Home) | | | | ity | | | | | + +--------+ +--------+ + + Advance Directives + + + + + | Code Status | Date | Date | Comments | | | Activated | Inactivated | | + + + + + | Full Code | 07/12/2019 | 07/13/2019 | | | | 4:48 AM | 7:59 PM | | + + + + +"
--- OUTSIDE RECORDS SUMMARY | ~2019-07-25 | XMS | Clinical Summary ---
Demographics + + + | Address | [address] | | | [place] [address] | + + + | Home Phone | | + + + | Preferred Language | Unknown | + + + | Marital Status | Single | + + + | Oriental Orthodox Affiliation | NRP | + + + [...] Team Providers + +------+ + | Care Manufacturing Technology Analyst Name | Role | Phone | + +------+ + | Evi Pozo MD | PCP | | + +------+ + Source Comments VIKKI is fully live on both [facility] Ambulatory and [facility] InPatient.[facility] Allergies No Known Allergies Medications + + [...] + + + + | 07/14/ | Tannery Gummer | Urology | Jc Kovacs MD | [...] [address] | | | | | | [place], [place] | | | | | | [address] | | | | | | [phone] | | | | | | | | +--------+---------+ + + + | 08/02/ | Office | Pre-operative | 3, [facility] Medical Records Clerk [address] | | | 2019 | Visit | Medicine | [address] | | | | | | [place] [address] | | +--------+---------+ + + + + [...] | + + + + + | [facility] | [address] [facility] | [place] [address] | | | SERVICES, CORE | MY[address] [...] | | | LABORATORY | | | COMORAN | | | SERVICES, | | | [...] | + + + + + | [facility] | [address] | [place] [address] | | | SERVICES, CORE | MYNOR [...] + | [facility] - | [address] | [place] [address] | | | [place] | | | [...] | + + + + + | [facility] | [address] | [place] [address] | | | SERVICES, CORE | [address] | | | + + + + + IR NEPHROSTOMY PLACEMENT (07/12/2019 3:34 PM PST) + + | Specimen | + + | | + + + + + | Narrative | Performed At | + + + | Procedure: Left nephrostomy tube placement Primary business info consultant: | [facility] | | Renny Arriaga MD Boxcar Weigher attending business info consultant: Shawn Macias [employer] | | Yung Balderas M.D. Preoperative diagnosis: Obstructive hydronephrosis | RECOGNITION 2 | | Postoperative diagnosis: Pyonephrosis + Operations: Operation | | | 1. [Ultrasound-guided access left mid- pole reji] Operation 2. | | | [10-Bangladeshi nephrostomy tube left renal pelvis Indications: | [...] allowing | | | placement of the 5-Bangladeshi coaxial access sheath. Contrast was | | | injected. Using flouroscopic guidance dilatation was performed over | | | a Amplatz guidewire with an 10-Bangladeshi dilator and an 10-Bangladeshi | | | multipurpose catheter was inserted [...] by IR | | | RN. Intra-service anou-ud-ajvc start time: 14:55 Intra-service | | | jots-ma-rjpn end time: 15:35 Versed 3 mg Fentanyl [...] | | pyonephrosis 2. Percutaneous placement left 10-Bangladeshi | | | nephrostomy tube via mid-pole [...] Left | | nephrostomy tube placement Primary business info consultant: Renny Arriaga MD Boxcar Weigher attending | | business info consultant: Yung Macias M.D. Preoperative diagnosis: Obstructive hydronephrosis | | Postoperative diagnosis: Pyonephrosis+Operations: Operation 1. [Ultrasound-guided | | access left mid- pole reji] Operation 2. [10-Bangladeshi nephrostomy tube left renal pelvis | | [...] microwire was introduced allowing placement of the 5-Bangladeshi coaxial access sheath. | | Contrast was injected. Using flouroscopic guidance dilatation was performed over a | | Amplatz guidewire with an 10-Bangladeshi dilator and an 10-Bangladeshi multipurpose catheter was | | inserted with [...] and administered by IR RN.Intra-service | | rzdq-er-ieuv start time: 14:55Intra-service mxse-zm-lsxx end time: 15:35Versed 3 | | mgFentanyl [...] pyonephrosis 2. Percutaneous placement left | | 10-Bangladeshi nephrostomy tube via mid-pole calyx I have [...] and administered by IR LISA. | |Intra-service vrce-hk-xblm start time: 14:55 | |Intra-service tlfn-je-jfjz end time: 15:35 | |Versed 3 mg [...] | | | |2. Percutaneous placement left 10-Bangladeshi nephrostomy tube via mid-pole calyx | | [...] [facility] | [address] | [place], [place] | | | ROMULO POINT OF CARE | [address] | [address] | | | TESTS | | | [...] [facility] | [address] | [place] [address] | | | SERVICES, | [address] [...] DEPT OF | [address] | [place], [place] | | | CARDIOLOGY | [address] | [address] | | + + + + + X-RAY PORTABLE CHEST 1 VIEW (07/11/2019 10:38 PM PST) + + | Specimen | + + | | + + + + + | Narrative | Performed At | + + + | EXAM: FL CHEST 1 VIEW HISTORY: Syncope, ground-level fall [...] Interface - 07/12/2019 7:39 AM PST EXAM: FL CHEST 1 | | VIEW HISTORY: Syncope, [...] [facility] | [address] | [place] [address] | | | NGUYEN OCHOA | [address] [...] | [facility] | | | GRAVITY | Bartow performed by | | LABORATORY | | [...] [facility] | [address] | [place] [address] | | | SERVICES, CORE | [address] [...] [facility] | [address] | [place] [address] | | | SERVICES, CORE | PARK [...] [facility] | [address] | [place] [address] | | | SERVICES, CORE | PARK [...] | + + + + + | [facility] | [address] [facility] [facility] | [place] [address] | | | SERVICES, CORE | MY[address] [...] [facility] | [address] | [place] [address] | | | SERVICES, CORE | [address] [...] [facility] | [address] | [place] [address] | | | SERVICES, CORE | PARK [...] | + + + + + | [facility] | [address] | [place] [address] | | | SERVICES, | [address] [...] | + + + + + | [facility] | [address] | [place] [address] | | | DON | [address] [...] (H) | 23 - 29 mmol/L | [facility] - | | | [place], POC | | | [place] | | | | | | [place] | | | | | | OF CARE | | | | | | TESTS | | + +---------+ + + + | PH VENOUS, | 7.38 | 7.35 - 7.45 | [facility] - | | | POC | | [...] [facility] | [address] | [place], [place] | | | ROMULO POINT OF CARE | [address] | [address] | | | TESTS | | | [...] AFFINI | | 19-Pre | 4 | [address] | | | | [place] | | sent | | [place], | | | | | | | | [place] [address] | | +-------+--------+ +--------+ + +------+ + [...] [address] | | Alexa | al/lAberto | | 1971 | [phone] | [place] [address] | | | teodora | | | 7 (Home) | | + +--------+ +--------+ + + | Mya De Paz | Third | Self | [birth year] | | [address] | | [place] | [employer] | | 1971 | [phone] | [place] [address] | | | Liabil | | | [...]
--- OUTSIDE RECORDS SUMMARY | ~2019-07-25 | XMS | Encounter Summary ---
Demographics + + + | Address | [address] | | | [place] [address] | + + + | Home Phone | | + + + | Preferred Language | Unknown | + + + | Marital Status | Single | + + + | Catholic Affiliation | NRP | + + + | Race | Unknown | + + + | Ethnic Group | or | + + + Author + + + | Author | [facility] | + + + | Organization | [facility] | + + + | Address | Unknown | + + + | Phone | Unavailable | + + + Support + + +---------+ + | Name | Relationship | Address | Phone | + + +---------+ + | Lashonda Gómez | ECON | Unknown | | + + +---------+ + Care Team Providers + +------+ + | Care Flap Maker Name | Role | Phone | + +------+ + | Evi Pozo MD | PCP | | + +------+ + Reason for Referral PROC - Outpatient Surgery (Routine) + +--------+ + + + + | Status | Reason | Specialty | Diagnoses / | Referred By | Referred To | | | | | Procedures | Contact | Contact | + +--------+ + + + + | New Request | | Urology | Diagnoses | Duty, | Jc Kovacs | | | | | Kidney | Jc Nunn MD | MD [address] | | | | | stone on | [address] | | | | | left side | [address] | [facility] [place] | | | | | Procedures | [facility] [place] | [address] | | | | | REQUEST TO | [address] | Phone: | | | | | SURGERY | Phone: | [phone] | | | | | PRIMARY OPERATOR | [phone] | Fax: | | | | | | Fax: | [phone] | | | | | | [phone] | | + +--------+ + + + + Encounter Details +--------+ + + + + | Date | Type | Department | Care Team | Description | +--------+ + + + + | 07/14/ | Control Cabinet Assembler | Urology at [facility] | Duty, Jc Nunn MD | Kidney stone on left | | 2019 | | [address] | [address] | side (Primary Dx) | | | | Mailcode: CH10U | [place], [place] | | | | | [facility] | [address] | | | | | and Healing, | [phone] | | | | | | | | | | | Floor [facility] [place] | | | | | | [address] | | | | | | [phone] | | | +--------+ + + + [...] + + documented as of this encounter Functional Status + + + + | Functional Status | Response | Date of Assessment | + + + + | Because of a physical, mental, or emotional | No | 07/13/2019 | | condition, do you have serious difficulty | | | | doing errands alone such as visiting the | | | | doctor? | | | + + + + + + + + | Cognitive Status | Response | Date of Assessment | + + + + | Because of a physical, mental, or emotional | No | 07/13/2019 | | condition, do you have serious difficulty | | | | concentrating, remembering, or making | | | | decisions? (5 years old or older) | | | + + + + documented as of this encounter Plan of Treatment +--------+---------+ + + + | Date | Type | Specialty | Care Team | Description | +--------+---------+ + + + | 08/02/ | Office | Urology | Jc Kovacs MD | | | 2019 | Visit | | [address] | | | | | | [place], [place] | | | | | | [address] | | | | | | [phone] | | | | | | | | +--------+---------+ + + + | 08/02/ | Office | Pre-operative | 3, [facility] Veterans Service Officer [address] | | | 2019 | Visit | Medicine | [address] | | | | | | [place] [address] | | +--------+---------+ + + + documented as of this encounter Visit Diagnoses + + | Diagnosis | + + | Kidney stone on left side - Primary Calculus of kidney | + + documented in this encounter"
--- OUTSIDE RECORDS SUMMARY | ~2019-07-25 | XMS | Encounter Summary ---
Demographics + + + | Address | [address] | | | [place] [address] | + + + | Home Phone | | + + + | Preferred Language | Unknown | + + + | Marital Status | Single | + + + | Scientologist Affiliation | NRP | + + + | Race | Unknown | + + + | Ethnic Group | or | + + + Author + + + | Organization | Unknown | + + + | Address | Unknown | + + + | Phone | Unavailable | + + + Support + + +---------+ + | Name | Relationship | Address | Phone | + + +---------+ + | Lashonda Gómez | ECON | Unknown | | + + +---------+ + Care Team Providers + +------+ + | Care Gun Mechanic Name | Role | Phone | + +------+ + | Evi Pozo MD | PCP | | + +------+ + Encounter Details +--------+--------+ + + + | Date | Type | Department | Care Team | Description | +--------+--------+ + + + | 07/12/ | Travel | | | | | 2019 | | | | | +--------+--------+ + + + [...] | 2018 | Visit | | [address] | | | | | | [place] | | | | | | [address] | | | | | | [phone] | | | | | | | | +--------+---------+ + + + | 08/02/ | Office | Pre-operative | , [facility] Business [facility] Representative [address] | | | 2018 | Visit | Medicine | [address] | | | | | | [place] [address] | | +--------+---------+ + + + documented as of this encounter Visit Diagnoses Not on filedocumented in this encounter"
--- OUTSIDE RECORDS SUMMARY | ~2019-07-25 | XMS | Encounter Summary ---
Demographics + + + | Address | [address] | | | [place] [address] | + + + | Home Phone | | + + + | Preferred Language | Unknown | + + + | Marital Status | Single | + + + | Synagogue Affiliation | Unknown | + + + | Race | Unknown | + + + | Ethnic Group | Unknown | + + + Author + + + | Author | [facility] | | | and [place] | + + + | Organization | [facility] | | | and [place] | [...] Team Providers + +------+ + | Care Elevator Installer Name | Role | Phone | + +------+ + PCP | Unavailable | + +------+ + Encounter Details +--------+ + + + + | Date | Type | Department | Care Team | Description | +--------+ + + + + | 09/16/ | Hospital | [facility] | [place] | Calculus of | | 1993 - | Encounter | [facility] [address] | [address] | gallbladder without | | | | [address] | [address] [place], | mention of | | 09/17/ | | [place], [place] | [place] [address] | cholecystitis or | | 1993 | | [address] | [phone] | obstruction | | | | [phone] | | | +--------+ + + + [...] filedocumented as of this encounter Visit Diagnoses + + | Diagnosis | + + | Calculus of gallbladder without mention of cholecystitis or obstruction | + + documented in this encounter"
--- OUTSIDE RECORDS SUMMARY | ~2019-07-25 | XMS | Encounter Summary ---
Demographics + + + | Address | [address] | | | [place] [address] | + + + | Home Phone | | + + + | Preferred Language | Unknown | + + + | Marital Status | Single | + + + | Zoroastrian Affiliation | NRP | + + + | Race | Unknown | + + + | Ethnic Group | or | + + + Author + + + | Author | [facility] | + + + | Organization | [facility] | + + + | Address | Unknown | + + + | Phone | Unavailable | + + + Support + + +---------+ + | Name | Relationship | Address | Phone | + + +---------+ + | Lashonda Gómez | ECON | Unknown | | + + +---------+ + Care Team Providers + +------+ + | Care Auditor/Quality Name | Role | Phone | + +------+ + | Evi Pozo MD | PCP | | + +------+ + Encounter Details +--------+ + + + + | Date | Type | Department | Care Team | Description | +--------+ + + + + | 07/13/ | Pharmacy | Outpatient Retail | | | | 2019 | Visit | [facility] | | | | | | [address] | | | | | | [place], | | | | | | [place] [address] | | | | | | [phone] | | | +--------+ + + + [...] | 08/02/ | Office | Urology | Bethanie, Jc Nunn MD | | | 2018 | Visit | | [address] | | | | | | [place], [place] | | | | | | [address] | | | | | | [phone] | | | | | | | | +--------+---------+ + + + | 08/02/ | Office | Pre-operative | 3, [facility] Inside Barrel Polisher [address] | | | 2019 | Visit | Medicine | [address] | | | | | | [place] [id number] | | +--------+---------+ + + + documented as of this encounter Visit Diagnoses Not on filedocumented in this encounter"
--- OUTSIDE RECORDS SUMMARY | ~2019-07-25 | XMS | Encounter Summary ---
Demographics + + + | Address | [address] | | | [place] [address] | + + + | Home Phone | | + + + | Preferred Language | Unknown | + + + | Marital Status | Single | + + + | Restoration Affiliation | NRP | + + + | Race | Unknown | + + + | Ethnic Group | or | + + + Author + + + | Author | [facility] | + + + | Organization | [facility] | + + + | Address | Unknown | + + + | Phone | Unavailable | + + + Support + + +---------+ + | Name | Relationship | Address | Phone | + + +---------+ + | Lashonda Gómez | ECON | Unknown | | + + +---------+ + Care Team Providers + +------+ + | Care Shear Assembler Name | Role | Phone | + +------+ + | Evi Pozo MD | PCP | | + +------+ + Reason for Visit + + + | Reason | Comments | + + + | Medication | Based off new growth in urine culture | | Adjustment | | + + + Encounter Details +--------+--------+ + + + | Date | Type | Department | Care Team | Description | +--------+--------+ + + + | 07/14/ | Refill | Urology at [facility] | Melania Spaulding MD | Medication | | 2019 | | [address] | [address] | Adjustment (Based | | | | Mailcode: CH10U | [address] [place], | off new growth in | | | | [facility] | [place] [address] | urine culture) | | | | and Healing, | [phone] | | | | | Building | | | | | | Floor [place], [place] | | | | | | [address] | | | | | | [phone] | | | +--------+--------+ + + + [...] | 08/02/ | Office | Urology | DutyJc MD | | | 2019 | Visit | | [address] | | | | | | [place], [place] | | | | | | [address] | | | | | | [phone] | | | | | | | | +--------+---------+ + + + | 08/02/ | Office | Pre-operative | [place] [employer] [address] | | | 2019 | Visit | Medicine | [address] | | | | | | [place] [address] | | +--------+---------+ + + + documented as of this encounter Visit Diagnoses Not on filedocumented in this encounter"
--- OUTSIDE RECORDS SUMMARY | ~2019-07-25 | XMS | Encounter Summary ---
Demographics + + + | Address | [address] | | | [place] [address] | + + + | Home Phone | | + + + | Preferred Language | Unknown | + + + | Marital Status | Single | + + + | Samaritan Affiliation | NRP | + + + [...] Team Providers + +------+ + | Care Tower Truck Driver Name | Role | Phone | + [...] | | | | | [address] [place], | | | | | | [place] [address] | | | +--------+--------+ + + + [...] [address] | | | | | | [place], [place] | | | | | | [address] | | | | | | [phone] | | | | | | | | +--------+---------+ + + + | 08/02/ | Office | Pre-operative | 3, [facility] [address] | | | 2019 | Visit | Medicine | [address] | | | | | | [place] [address] | | +--------+---------+ + + + documented as of this encounter Visit Diagnoses Not on filedocumented in this encounter"
--- OUTSIDE RECORDS SUMMARY | ~2019-07-25 | XMS | Clinical Summary ---
Demographics + + + | Address | [address] | | | [place] [address] | + + + | Home Phone | | + + + | Preferred Language | Unknown | + + + | Marital Status | Single | + + + | Bahai Affiliation | Unknown | + + + | Race | Unknown | + + + | Ethnic Group | Unknown | + + + Author + + + | Author | [facility] ([facility] of | | | 04-08-19) | + + + | Organization | [facility] (Historical as of | | | 04-08-19) | + + + | Address | Unknown | + + + | Phone | Unavailable | + + + Support + + +---------+ + | Name | Relationship | Address | Phone | + + +---------+ + | Lashonda Gómez | ECON | Unknown | | + + +---------+ + Care Team Providers + +------+ + | Care Slubber Tender Name | Role | Phone | + +------+ + PP | Unavailable | + +------+ + Allergies Not on File Current Medications Not on file Active Problems Not on file Social History + +-------+ +--------+------+ | Tobacco [...] on file | | + + + Plan of Treatment Not on file Results Not on filefrom Last 3 Months"
--- OUTSIDE RECORDS SUMMARY | ~2019-07-25 | XMS | Clinical Summary ---
Demographics + + + | Address | [address] | | | [place] [address] | + + + | Home Phone | | + + + | Preferred Language | Unknown | + + + | Marital Status | Single | + + + | Spiritism Affiliation | Unknown | + + + | Race | Unknown | + + + | Ethnic Group | Unknown | + + + Author + + + | Author | [facility] | | | and [place] | + + + | Organization | [facility] | | | and [place] | [...] Team Providers + +------+ + | Care News Clipping Cutter Name | Role | Phone | + +------+ + PCP | Unavailable | + +------+ + Allergies Not on File Medications Not on file Active Problems Not [...] | + + Last Filed Vital Signs Not on file Plan of Treatment + + + + + | Health Maintenance | Due Date | Last Done | Comments | + + + + + | Vaccine: | | | | | Dtap/Tdap/Td (1 - | 9 | | | | Tdap) | | | | + + + + + | Cervical Cancer | | | | | Screening (Pap) | 0 | | | + + + + + | Breast Cancer | | | | | Screening | 5 | | | + + + + + | Vaccine: Influenza | | | | | (#1) | 9 | | | + + + + + Results Not on filefrom Last 3 Months"
--- OUTSIDE RECORDS SUMMARY | ~2019-07-25 | XMS | Encounter Summary ---
Demographics + + + | Address | [address] | | | [place] [address] | + + + | Home Phone | | + + + | Preferred Language | Unknown | + + + | Marital Status | Single | + + + | Baptist Affiliation | NRP | + + + | Race | Unknown | + + + | Ethnic Group | or | + + + Author + + + | Author | [facility] | + + + | Organization | [facility] | + + + | Address | Unknown | + + + | Phone | Unavailable | + + + Support + + +---------+ + | Name | Relationship | Address | Phone | + + +---------+ + | Lashonda Gómez | ECON | Unknown | | + + +---------+ + Care Team Providers + +------+ + | Care Studio Couch Frame Builder Name | Role | Phone | + +------+ + | Evi Pozo MD | PCP | | + +------+ + Reason for Visit +--------+ + | Reason | Comments | +--------+ + | Trauma | | +--------+ + AUTH/CERT +--------+--------+ + + + + | Status | Reason | Specialty | Diagnoses / | Referred By | Referred To | | | | | Procedures | Contact | Contact | +--------+--------+ + + + + | | | | | | | +--------+--------+ + + + + Encounter Details +--------+ + + + + | Date | Type | Department | Care Team | Description | +--------+ + + + + | 07/11/ | Hospital | [facility] [address] | Beto Momin MD | | | 2019 - | Encounter | [address] | [address] [facility] | | | | | [place], [place] | [address] | | | 07/13/ | | [address] | [place], [place] | | | 2019 | | [phone] | [address] | | | | | | [phone] | | | | | | | | | | | | Lisa Jalloh MD | | | | | | [address] | | | | | | [address] [place], | | | | | | [place] [address] | | | | | | [phone] | | | | | | | | | | | | Jamilah Bradley, | | | | | | DO [address] | | | | | | [address] | | | | | | [place], [place] | | | | | | [address] | | | | | | [phone] | | | | | | | | +--------+ + [...] + + documented as of this encounter Last Filed Vital Signs + + + [...] | | + + + + + documented in this encounter Functional Status + + + [...] + + documented as of this encounter Discharge Summaries Jamilah Bradley DO - 07/13/2019 9:02 AM PST [facility] Discharge Summary Urology Service [facility] UROLOGIC SURGERY DISCHARGE SUMMARY & INSTRUCTIONS: Patient: Mya Najera Admission Date: 07/11/2019 Discharge Date: 07/13/19 Attending Physician: Jamilah Bradley DO Primary Care Provider: Evi Pozo MD Service: Urologic Surgery ----- Diagnoses Patients Hospital Problem List: 1) *Hydronephrosis with urinary obstruction due to ureteral calculus 2) Syncope, unspecified syncope type 3) Closed fracture of multiple ribs of left side, initial encounter 4) Pneumothorax, unspecified type 5) Nephrolithiasis Active Hospital Problems Procedures 1. Left percutaneous nephrostomy placement by Interventional Radiology ----- Significant Findings, Treatment, and Complications, and Brief Hospital Course: Brief Hospital Course Mya Najera is a 48 y.o. female with a history of nephrolithiasis who presente d after a fall/syncopal episode while shopping at [employer] with an obstructing ureteral stone and hydronephrosis. She was also found to have L rib fractures and an occult pneumothorax. Trauma Surgery signed off and recommended pulmonary toilet. She was stable throughout the spitalization and underwent the above procedure on 07/12/2019. She tolerated the procedure w ell and recovered uneventfully on the saeed post-operatively. She was started on IV antibioti cs. She was discharged home on 07/13/2019 at which time she was tolerating a regular diet, h ad good pain control on oral medications, and was ambulating without difficulty. She will fo llow up with Dr Kovacs for definitive stone management Drains: Left nephrostomy tube by Interventional Radiology Abx: Cefdinir for 3 days Culture: Urine culture obtained during procedure pending - will follow up Follow up: with Dr. Kovacs for stone procedure ----- Diet Regular Regular diet- There are no restrictions to your diet. You may eat or drink whatever you pr efer, though healthy food choices are recommended. ----- Activity - Avoid bearing down or straining with bowel movements. - Narcotics can cause constipation, so you may take hiue-pji-eywrgrf stool softeners (Senok ot-S, Miralax, Colace) following the instructions on the box. Stop taking these pills if yo u are experiencing diarrhea. - No driving while on narcotics or with a urinary catheter in place. ----- Follow Up Appointments: Outstanding Studies: None Lines: Left percutaneous nephrostomy tube Cultures: Pending Antibiotics: On cefdinir for 3 days Education was provided to the patient and family/caregiver regarding: activity restrictions , wound care, diet, line and drain care ----- Condition On Discharge: Good Vital Signs at discharge: BP 100/61, Pulse 60, Temperature 36.4 C (97.5 F), Temperature source Oral, RR 16, SpO2 98%. Facility age limit for growth percentiles is 18 years. Discharge Medications: Medication List START taking these medications acetaminophen 500 mg Tab Commonly known as: TYLENOL Take 2 tablets by mouth three times daily. cefDINir 300 mg Cap Commonly known as: OMINCEF Take 1 capsule by mouth two times daily for 3 days. oxyCODONE (immediate release) 5 mg Tab Commonly known as: ROXICODONE Take 1 tablet by mouth every six hours as needed for breakthrough pain. senna-docusate 8.6-50 mg Tab Commonly known as: SENNA-S Take 1 tablet by mouth two times daily. Allergies: No Known Allergies Discharge Physical Exam: Last 24 hour min/max Temp: 36.6 C (97.9 F) Temp Min: 36.3 C (97.3 F) Max: 36.6 C (97.9 F) Pulse: 70 Pulse Min: 58 Max: 80 Resp: 16 Resp Min: 13 Max: 19 BP: 97/63 BP Min: 93/62 Max: 141/73 SpO2: 98 % SpO2 Min: 93 % Max: 100 % There is no height or weight on file to calculate BMI. General: healthy, well-nourished, comfortable Respiratory: unlabored breathing Abdomen: soft, NT, L PCN with fruit punch colored urine, improved cloudiness from yesterday Ext: warm ----- Discharge Patient To: Home Discharging Provider: Melania Spaulding MD Attending Physician: Jamilah Bradley DO Date and Time of Discharge: 07/13/2019, 9:02 AM Thank you for the opportunity to take care of Mya Naj[facility] during [facility], it has been our pleasure. Please call with any questions. Melania Spaulding MD Urologic Surgery [facility] [id number] I agree with the findings and the plan of care as documented in the resident s note. Jamilah Bradley DO Department of Urology documented in this encounter Discharge Instructions Instructions Melania Spaulding MD - 07/13/2019 8:59 AM PSTFormatting of this note might be diff erent from the original. Learning About Using an Incentive Spirometer What is an incentive spirometer? An incentive spirometer is a handheld device that exercises your lungs and measures how muc h air you can breathe in. It tells you and your doctor how well your lungs are working. The spirometer can help you practice taking deep breaths. Deep breaths can help open your a irways and prevent fluid or mucus from building up in your lungs, and make it easier for you to breathe. Using the device can help prevent serious lung infections like pneumonia, improve your karely thing after you've had pneumonia or surgery, and keep your airways open and lungs active if you can't get out of bed. How do you use an incentive spirometer? When you use an incentive spirometer, you breathe in air through a tube that is connected t o a large air column containing a piston or ball. As you breathe in, the piston or ball insi de the column moves up. The height of the piston or ball shows how much air you breathed in. You may feel lightheaded when you breathe in deeply for this exercise. If you feel dizzy or feel like you're going to pass out, stop the exercise and rest. Each time you do this exercise, keep track of your progress by writing down how high the pi ston or ball moves up the column. Move the slider on the outside of the large column to the level that you want to reach or t hat your doctor recommended. Sit or stand up straight, and hold the spirometer in front of you. Be sure to keep it level . To start, breathe out normally. Then close your lips tightly around the mouthpiece. Make sheikh re that you don't block the mouthpiece with your tongue. Take a slow, deep breath. Breathe in as deeply as you can. As you breathe in, the piston or ball inside the large column will move up. Try to move the piston or ball as high up as you can or to the level your doctor recommended. When you can't breathe in anymore, hold your b reath for 2 to 5 seconds. Relax, take the mouthpiece out of your mouth, and breathe out normally. Repeat steps 1 through 5 as many times as your doctor tells you to. After you've taken the recommended number of breaths, try to cough a few times. This will h elp loosen any mucus that has built up in your lungs. It will make it easier for you to karely the. If you just had surgery on your belly or chest, hold a pillow over your cut (incision) when you cough. Follow-up care is a apple part of your treatment and safety. Be sure to make and go to all ap pointments, and call your doctor if you are having problems. It's also a good idea to know y our test results and keep a list of the medicines you take. Where can you learn more? To learn more about "Learning About Using an Incentive Spirometer", log into your Pain Doctor a ccount at [email or web address]. You can enter [id number] in the "P[employer]a Library" search box . Not on Pain Doctor? Review the Ici Montre[employer] section of your After Visit Summary for directions on ho w to sign up. Current as of: April 27, 2018 Content Version: [id number] [employer]. Care instructions adapted under license by [facility] [employer]. If you have questions about a medical condition or this instr uction, always ask your healthcare professional. [employer]Wh[employer] disclaims any milvia anty or liability for your use of this information. Broken Rib: Care Instructions Your Care Instructions A broken rib is a crack or break in one of the bones of the rib cage. Breathing can be very painful because the muscles used for breathing pull on the rib. In most cases, a broken rib will heal on its own. You can take pain medicine while the rib mends. Pain relief allows you to take deep breaths. In the past, doctors recommended taping or wrapping broken ribs. This is no longer done because taping makes it hard for you to take deep breaths. Taking deep breaths may help prevent pneumonia or a partial collapse of a tavia g. Your rib will heal in about 6 weeks. You heal best when you take good care of yourself. Eat a variety of healthy foods, and don' t smoke. Follow-up care is a apple part of your treatment and safety. Be sure to make and go to all ap pointments, and call your doctor if you are having problems. It's also a good idea to know y our test results and keep a list of the medicines you take. How can you care for yourself at home? Be safe with medicines. Read and follow all instructions on the label. If the doctor gave you a prescription medicine for pain, take it as prescribed. If you are not taking a prescription pain medicine, ask your doctor if you can take an over -the-counter medicine. Even if it hurts, try to cough or take the deepest breath you can at least once every hour. This will get air deeply into your lungs. This may reduce your chance of getting pneumonia or a partial collapse of a lung. Hold a pillow against your chest to make this less painful. Put ice or a cold pack on the area for 10 to 20 minutes at a time. Put a thin cloth between the ice and your skin. When should you call for help? Call 911 anytime you think you may need emergency care. For example, call if: You have severe trouble breathing. Call your doctor now or seek immediate medical care if: You have some trouble breathing. You have a fever. You have a new or worse cough. Watch closely for changes in your health, and be sure to contact your doctor if: You have pain even after taking your medicine. You do not get better as expected. Where can you learn more? To learn more about "Broken Rib: Care Instructions", log into your Pain Doctor account at [email or web address]: [email or web address]. You can enter M135 in the "Lockitron" search box. Not on Pain Doctor? Review the Last Second Ticketshart section of your After Visit Summary for directions on damari gore to sign up. Current as of: May 12, 2018 Content Version: [id number] [employer]. Care instructions adapted under license by [facility]. If you have questions about a medical condition or this instr uction, always ask your healthcare professional. BrightWhistle disclaims any milvia anty or liability for your use of this information. Nephrostomy Tube Care: Care Instructions Your Care Instructions A nephrostomy tube is a thin catheter placed into your kidney to drain urine. You may have one tube in a kidney or two tubes, one in each kidney. The urine collects in a bag attached to the tube. In most cases, the bag is attached to your leg. Sometimes the catheter tube has a valve that lets you drain the urine into the toilet or other container. You may need a nephrostomy tube if you have a blockage or a hole in your urinary tract. The blockage may be caused by a kidney stone, infection, scar tissue, or a tumor. If you have only one tube, you still need to urinate. Your other kidney will still produce urine that will drain into your bladder. Having a nephrostomy tube in for a long time increases the risk of getting an infection. Ne phrostomy tube care focuses on preventing infection. Follow-up care is a apple part of your treatment and safety. Be sure to make and go to all ap pointments, and call your doctor if you are having problems. It's also a good idea to know y our test results and keep a list of the medicines you take. How can you care for yourself at home? Wash your hands before you handle the nephrostomy tube. Clean the area around the tube with soap and water every day. Keep the drainage bag lower than your kidney to keep urine from backing up. If you have been told you can reuse your bag, you can clean the bag after removing it from the tube. Use another container to collect your urine while you clean the bag. To clean the bag, fill it with 2 parts vinegar to 3 parts water, and let it stand for 20 minutes. Then em pty it out, and let it air dry. Empty the drainage bag before it is completely full or every 2 to 3 hours. Do not swim or take baths while you have a nephrostomy tube. You can shower after wrapping the end of the nephrostomy tube with plastic wrap. Change the dressing around the nephrostomy tube about every 3 days or when it gets wet or d irty. A nurse will teach you how to change the dressing. When should you call for help? Call your doctor now or seek immediate medical care if: You have new or worse symptoms of a kidney infection. These may include: Pain or burning when you urinate. A frequent need to urinate without being able to pass much urine. Pain in the flank, which is just below the rib cage and above the waist on either side of t he back. Blood in the urine. A fever. You are vomiting or nauseated. Your tube leaks. Urine does not collect in the drainage bag. You have pain or bleeding around the tube. Watch closely for changes in your health, and be sure to contact your doctor if: You do not get better as expected. Where can you learn more? To learn more about "Nephrostomy Tube Care: Care Instructions", log into your Social Media Gateways nt at [email or web address]. You can enter [id number] in the "Plinga Library" search box. Not on Pain Doctor? Review the Last Second Ticketshart section of your After Visit Summary for directions on ho w to sign up. Current as of: June 22, 2018 Content Version: [id number] BrightWhistle. Care instructions adapted under license by [facility] [employer] & [facility]. If you have questions about a medical condition or this instr uction, always ask your healthcare professional. BrightWh[employer] disclaims any milvia anty or liability for your use of this information. documented in this encounter Medications at Time of Discharge + + + +---------+ + + | Medication | Sig | Dispensed | Refills | Start | End Date | | | | | | Date | | + + + +---------+ + + | acetaminophen 500 | Take 2 tablets by | | 0 | 07/13/20 | | | mg oral tablet | mouth three times | | | 19 | | | | daily. | | | | | + + + +---------+ + + | oxyCODONE | Take 1 tablet by | 5 | 0 | 07/13/20 | | | (immediate release) | mouth every six | tablet | | 19 | | | 5 mg oral tablet | hours as needed for | | | | | | | breakthrough pain. | | | | | + + + +---------+ + + | senna-docusate | Take 1 tablet by | 40 | 0 | 07/13/20 | | | (SENNA-S) 8.6-50 mg | mouth two times | tablet | | 19 | | | oral tablet | daily. | | | | | + + + +---------+ + + | cefDINir 300 mg | Take 1 capsule by | 6 | 0 | 07/13/20 | | | oral capsule | mouth two times | capsule | | 19 | 9 | | | daily for 3 days. | | | | | + + + +---------+ + + documented as of this encounter Progress Notes Renny Arriaga MD - 07/13/2019 6:21 AM PSTFormatting of this note might be different fr om the original. INTERVENTIONAL RADIOLOGY Progress Note Assessment: 48 y.o. female POD # 1 left percutaneous nephrostomy placement. No acute events overnight. Mild left flank drain site pain. Drain output is pink-tinged urine, which has cleared sin ce initial placement. Plan: -Maintain drain to gravity drainage bag. -Further management of PCN per urology as an outpatient if discharged. Recommend routine e xchange in 2 to 3 months if not clinically indicated sooner. -IR will continue to follow while the patient is admitted S: No acute distress. Resting comfortably in bed. O: Last 24 hour min/max Temp: 36.4 C (97.5 F) Temp Min: 36.3 C (97.3 F) Max: 36.8 C (98.2 F) Pulse: 60 Pulse Min: 58 Max: 80 Resp: 16 Resp Min: 13 Max: 49 BP: 100/61 BP Min: 93/62 Max: 141/73 SpO2: 98 % SpO2 Min: 93 % Max: 100 % There is no height or weight on file to calculate BMI. Physical Examination Gen: No acute distress Cardiac: Regular rate Chest: No respiratory distress Abdomen: Non-distended, non-tender; no rebound or guarding Access site, left flank PCN site: dressing clean, dry, intact. Site non tender. Drainage i s pink-tinged clear urine. Date 07/12/19 07 - 07/13/19 0659 07/13/19699 - 07/14/19 0659 Shift 0876-9920 0331-2076 7622-9563 24 Hour Total 0734-3300 1658-4038 0922-7262 24 Hour Tot al INTAKE P.O. 500 500 I.V. 243.8 596.3 840 IV Piggyback 200 200 Shift Total 200 743.8 596.3 1540 OUTPUT Urine 1 450 451 Shift Total 1 450 451 Weight (kg) Labs CBC with diff last 72 hours (or 3 results) - Refreshable Recent Labs 07/11/19223007/13/199 WBC 12.63* 5.76 HB 11.7* 9.9* HCT 36.7 31.7* PLT 436* 376 Chemistries: Last 72 Hours (or 3 results) - Refreshable Recent Labs 07/11/19223007/12/19 0507 07/13/199 NA -- 137 138 K -- 3.9 3.6 CL -- 106 108 BICARB -- 23 26 BUN -- 12 12 CR -- 1.08 1.09 GLU 108* 89 116* CA -- 9.3 8.6 No results found for: AST, ALT, TBILI, DIRBILI, AP, TP, ALB Lab Results Component Value Date APTT 23.0 (L) 07/11/2019 FIBRINOGEN 676 (H) 07/11/2019 Lab Results Component Value Date INRPT 1.17 07/11/2019 Medications Current Facility-Administered Medications Medication Dose Route Frequency acetaminophen (TYLENOL) tablet 1,000 mg 1,000 mg oral TID artificial tears (dextran 70-hypromellose) (NATURE'S TEARS) 0.1-0.3 % ophthalmic drops 1 drop 1 drop Both Eyes PRN bisacodyl (DULCOLAX) suppository 10 mg 10 mg rectal DAILY PRN calcium carbonate chewable (TUMS) tablet 200 mg elemental 500 mg total salt oral TID P RN cefTRIAXone (ROCEPHIN) injection 1 g 1 g intravenous Q24H HYDROmorphone (DILAUDID) injection 0.2 mg 0.2 mg intravenous Q3H PRN melatonin tablet 3 mg 3 mg oral HS PRN menthol-zinc oxide (COUGH DROPS) lozenge lozg 5.8 mg 1 lozenge oral PRN ondansetron (ZOFRAN) injection 4 mg 4 mg intravenous Q12H PRN ondansetron ODT (ZOFRAN ODT) tablet 8 mg 8 mg oral Q12H PRN oxyCODONE (immediate release) (ROXICODONE) tablet 2.5-5 mg 2.5-5 mg oral Q4H PRN polyethylene glycol (MIRALAX) packet 17 g 17 g oral DAILY polyethylene glycol (MIRALAX) packet 34 g 34 g oral TID PRN prochlorperazine (COMPAZINE) injection 5-10 mg 5-10 mg intravenous Q6H PRN prochlorperazine (COMPAZINE) tablet 5-10 mg 5-10 mg oral Q6H PRN senna-docusate (SENOKOT S) 8.6-50 mg 2 tablet 2 tablet oral BID No Known Allergies Problem List Patient Active Problem List Diagnosis Syncope, unspecified syncope type Closed fracture of multiple ribs of left side, initial encounter Pneumothorax, unspecified type Nephrolithiasis Hydronephrosis with urinary obstruction due to ureteral calculus Renny Arriaga MD Melania colbert MD - 07/13/2019 5:07 AM PST Urology Progress Note Hospital Day: 2 Attending Physician: Jamilah Bradley Patient: Mya Najera [id number] is a 48 y.o. female 24H events/Subjective: Afebrile, vital signs appropriate L PCN placed yesterday afternoon, cloudy urine noted, patient kept to monitor Appliquer consulted for misplaced IUD, non-urgent laparoscopic removal as outpatient recommended Objective: Last Vitals: BP 100/61 (BP Location: Left upper arm, Patient Position: Lying on back) | Pu lse 60 | Temp 36.4 C (97.5 F) (Oral) | Resp 16 | SpO2 98% 24 Hour Vital Min/Max: Systolic (24hrs), Av , Min:93 , Max:141 Diastolic (24hrs), Av, Min:59, Max:84 Pulse Min: 67 Max: 82 Temp Min: 36.8 C (98.2 F) Max: 36.8 C (98.2 F) Resp Min: 14 Max: 22 SpO2 Min: 96 % Max: 100 % Intake/Output 07/11 07 - 11/20 0700 07/12 0701 - 07/13 0700 P.O. 500 I.V. 20 840 IV Piggyback 200 Total Intake 20 1540 Urine 500 451 Total Output 500 451 Net -480 +1089 Urine 1 x Exam: General: healthy, well-nourished, comfortable Respiratory: unlabored breathing Abdomen: soft, NT, L PCN with reddish urine, improved cloudiness from yesterday Ext: warm Medication: acetaminophen (TYLENOL) tablet 1,000 mg, 1,000 mg, oral, TID artificial tears (dextran 70-hypromellose) (NATURE'S TEARS) 0.1-0.3 % ophthalmic drops 1 dr op, 1 drop, Both Eyes, PRN bisacodyl (DULCOLAX) suppository 10 mg, 10 mg, rectal, DAILY PRN calcium carbonate chewable (TUMS) tablet 200 mg elemental, 500 mg total salt, oral, TID PRN cefTRIAXone (ROCEPHIN) injection 1 g, 1 g, intravenous, Q24H HYDROmorphone (DILAUDID) injection 0.2 mg, 0.2 mg, intravenous, Q3H PRN lactated ringers IV, 75 mL/hr, intravenous, CONTINUOUS melatonin tablet 3 mg, 3 mg, oral, HS PRN menthol-zinc oxide (COUGH DROPS) lozenge lozg 5.8 mg, 1 lozenge, oral, PRN ondansetron (ZOFRAN) injection 4 mg, 4 mg, intravenous, Q12H PRN ondansetron ODT (ZOFRAN ODT) tablet 8 mg, 8 mg, oral, Q12H PRN oxyCODONE (immediate release) (ROXICODONE) tablet 2.5-5 mg, 2.5-5 mg, oral, Q4H PRN polyethylene glycol (MIRALAX) packet 17 g, 17 g, oral, DAILY polyethylene glycol (MIRALAX) packet 34 g, 34 g, oral, TID PRN prochlorperazine (COMPAZINE) injection 5-10 mg, 5-10 mg, intravenous, Q6H PRN prochlorperazine (COMPAZINE) tablet 5-10 mg, 5-10 mg, oral, Q6H PRN senna-docusate (SENOKOT S) 8.6-50 mg 2 tablet, 2 tablet, oral, BID Data: Labs: Recent Labs 07/11/19223007/12/19 0507 NA -- 137 K -- 3.9 CL -- 106 BICARB -- 23 BUN -- 12 CR -- 1.08 GLU 108* 89 CA -- 9.3 Recent Labs 07/11/19223007/13/19 0439 WBC 12.63* 5.76 HB 11.7* 9.9* HCT 36.7 31.7* PLT 436* 376 UA WBC 7 Imaging: OSH CT reviewed Large UPJ and lower pole stone on the Left as seen previously, associated hydro IUD in the pelvis outside the uterus, no intraperitoneal air or fluid Cultures: none Assessment and Plan: Mya Najera is a 48 year old female with obstructing left 20mm UPJ stone. - Plan for discharge today - Discharge on cefdinir for 3 days, will follow up cultures and reach out to patient with a ntibiotic update if needed - follow up as outpatient for definitive stone management - Will provide CHEMIST follow up plan to patient on discharge Dr. Jamilah Bradley is the attending of record for this encounter. Signed: Melania Spaulding MD PGY1 Urologic Surgery [facility] [id number] Renny Maier MD - 3:44 PM PSTINTERVENTIONAL RADIOLOGY BRIEF PROCEDURE NOTE DATE: 07/12/2019 3:44 PM PROCEDURE: Left percutaneous nephrostomy tube drain placement (10.2 Fr MPD) PRE-PROCEDURE DIAGNOSIS: Left nephrolithiasis POST-PROCEDURE DIAGNOSIS: Same IR ATTENDING: Gilberto IR FELLOW: Bart ACCESS: Left flank MEDICATIONS: Fentanyl 150 mcg IV Versed 3 mg IV Ciprofloxacin 400 mg IV COMPLICATION(S): None immediate ESTIMATED BLOOD LOSS: 5 cc FINDINGS: 1. Two large calcified nephroliths. 2. Purulent, chalky appearing left urine aspirate on access. Sent for culture. 3. Successful placement of a 10.2 Fr MPD into a posterior interpolar calyx. PLAN: 1. Maintain PCN to gravity drainage. Strict I/Os. 2. Given appearance of urine, consider continued antibiotics and IVFs. Monitor for signs o f SIRS or urosepsis. 3. Recommendations given to Dr. Spaulding of inpatient Urology team at 1540 on 07/12/19. 4. IR will continue to follow. pgr [phone]. Full dictated report forthcoming, which can be found under the imaging tab in Epic. Renny Arriaga MD Renny bee MD - 07/12/2019 3:44 PM PSTINTERVENTIONAL RADIOLOGY POST SEDATION NOTE Maximum level of sedation achieved during the procedure: 2 Moderately sedated, easily arous ed with light tactile stimulation Current level of sedation: 0 Awake and alert BP 130/82 | Pulse 78 | Temp 36.6 C (97.8 F) | Resp 17 | SpO2 94% Access site: Left flank The patient is recovered from moderate (conscious) sedation with an appropriate level of pa in control. Renny Arriaga MD Michael lopez MD - 07/12/2019 5:56 AM PST Urology Progress Note Hospital Day: 1 Attending Physician: Jamilah Bradley Patient: Mya Najera [id number] is a 48 y.o. female 24H events/Subjective: Afebrile, vital signs appropriate Comfortable in bed today No complaints Objective: Last Vitals: BP 100/71 (BP Location: Left upper arm, Patient Position: Lying on back) | Pu lse 71 | Temp 36.8 C (98.2 F) (Oral) | Resp 15 | SpO2 99% 24 Hour Vital Min/Max: Systolic (24hrs), Av , Min:94 , Max:129 Diastolic (24hrs), Av, Min:67, Max:88 Pulse Min: 67 Max: 82 Temp Min: 36.8 C (98.2 F) Max: 36.8 C (98.2 F) Resp Min: 14 Max: 22 SpO2 Min: 96 % Max: 100 % Intake/Output 07/10 0701 - 07/11 0700 07/11 07 - 07/12 0700 I.V. 20 Total Intake 20 Urine 500 Total Output 500 Net -480 Exam: General: healthy, well-nourished, comfortable Respiratory: unlabored breathing Abdomen: soft, NT Ext: warm Medication: acetaminophen (TYLENOL) tablet 1,000 mg, 1,000 mg, oral, TID artificial tears (dextran 70-hypromellose) (NATURE'S TEARS) 0.1-0.3 % ophthalmic drops 1 dr op, 1 drop, Both Eyes, PRN bisacodyl (DULCOLAX) suppository 10 mg, 10 mg, rectal, DAILY PRN calcium carbonate chewable (TUMS) tablet 200 mg elemental, 500 mg total salt, oral, TID PRN cefTRIAXone (ROCEPHIN) injection 1 g, 1 g, intravenous, Q24H HYDROmorphone (DILAUDID) injection 0.2 mg, 0.2 mg, intravenous, Q3H PRN lactated ringers IV, 75 mL/hr, intravenous, CONTINUOUS melatonin tablet 3 mg, 3 mg, oral, HS PRN menthol-zinc oxide (COUGH DROPS) lozenge lozg 5.8 mg, 1 lozenge, oral, PRN ondansetron (ZOFRAN) injection 4 mg, 4 mg, intravenous, Q12H PRN ondansetron ODT (ZOFRAN ODT) tablet 8 mg, 8 mg, oral, Q12H PRN oxyCODONE (immediate release) (ROXICODONE) tablet 2.5-5 mg, 2.5-5 mg, oral, Q4H PRN polyethylene glycol (MIRALAX) packet 17 g, 17 g, oral, DAILY polyethylene glycol (MIRALAX) packet 34 g, 34 g, oral, TID PRN prochlorperazine (COMPAZINE) injection 5-10 mg, 5-10 mg, intravenous, Q6H PRN prochlorperazine (COMPAZINE) tablet 5-10 mg, 5-10 mg, oral, Q6H PRN senna-docusate (SENOKOT S) 8.6-50 mg 2 tablet, 2 tablet, oral, BID No current outpatient medications on file. Data: Labs: Recent Labs 07/11/191 07/12/19 0507 NA -- 137 K -- 3.9 CL -- 106 BICARB -- 23 BUN -- 12 CR -- 1.08 GLU 108* 89 CA -- 9.3 Recent Labs 07/11/19 2231 WBC 12.63* HB 11.7* HCT 36.7 PLT 436* UA WBC 7 Imaging: OSH CT reviewed Large UPJ and lower pole stone on the Left as seen previously, associated hydro IUD in the pelvis outside the uterus, no intraperitoneal air or fluid Cultures: none Assessment and Plan: Mya Najera is a 48 year old female with obstructing left 20mm UPJ stone - Consult IR for L percutaneous nephrostomy placement today, might happen tomorrow v Wednesday as outpatient - CHEMIST to see this afternoon regarding misplaced IUD - follow up as outpatient for definitive stone management Dr. Jamilah Bradley is the attending of record for this encounter. Signed: Michael Taylor MD [facility] Urology PGY2 Pager [phone] documented in this en counter Plan of Treatment +--------+---------+ + + + | Date | Type | Specialty | Care Team | Description | +--------+---------+ + + + | 08/02/ | Office | Urology | Jc Kovacs MD | | | 2018 | Visit | | [address] | | | | | | [place], [place] | | | | | | [address] | | | | | | [phone] | | | | | | | | +--------+---------+ + + + | 08/02/ | Office | Pre-operative | 3, [facility] [address] | | | 2019 | Visit | Medicine | [address] | | | | | | [place] [address] | | +--------+---------+ + + + documented as of this encounter Procedures + +--------+ + + + | [...] section. | + +--------+ + + + documented in this encounter Results CBC (HEMOGRAM) ONLY (07/13/2019 4:39 AM PST) + + + + + [...] | + + + + + | [facility] | [address] | [place] [address] | | | SERVICES, CORE | [address] | | | + + + + + BASIC METABOLIC SET (NA, K, CL, TCO2, BUN, CR, GLU, CA) (07/13/2019 4:39 AM PST) + +---------+ + + + | [...] | | | LABORATORY | | | [facility] | | | SERVICES, | | | [...] MDRD equation recommended by the National | [facility] | | Kidney Disease Education Program. Estimated [...] | + + + + + | [facility] | [address] | [place] [address] | | | SERVICES, [place]GU[place] | [address] | | | + [...] | | | | (A) | | [place] | | + + + + + [...] + | [facility] | [address] | [place] [address] | | | [place] | | | | + + + + + CULTURE, URINE [facility] (07/12/2019 3:43 PM PST) + + + [...] | + + + + + | [facility] | [address] | [place] [address] | | | SERVICES, CORE | [address] | | | + + + + + IR NEPHROSTOMY PLACEMENT (07/12/2019 3:34 PM PST) + + | Specimen | + + | | + + + + + | Narrative | Performed At | + + + | Procedure: Left nephrostomy tube placement Primary ice house supervisor: | VIKK[facility] | | Renny Arriaga MD Ethylene Oxide Panelboard Operator attending ice house supervisor: Gilberto | RADIOLOGY VOICE | | Yung Balderas M.D. Preoperative diagnosis: Obstructive hydronephrosis | RECOGNITION 2 | | Postoperative diagnosis: Pyonephrosis + Operations: Operation | | | 1. [Ultrasound-guided access left mid- pole reji] Operation 2. | | | [10-Anguillan nephrostomy tube left renal pelvis Indications: | [...] allowing | | | placement of the 5-Anguillan coaxial access sheath. Contrast was | | | injected. Using flouroscopic guidance dilatation was performed over | | | a Amplatz guidewire with an 10-Anguillan dilator and an 10-Anguillan | | | multipurpose catheter was inserted [...] by IR | | | RN. Intra-service puts-mv-ecnj start time: 14:55 Intra-service | | | tkwr-oy-bifd end time: 15:35 Versed 3 mg Fentanyl [...] | | pyonephrosis 2. Percutaneous placement left 10-Anguillan | | | nephrostomy tube via mid-pole [...] Note | + + | Service Account, Casinity Res In Interface - 07/14/2019 5:14 PM PST Procedure: Left | | nephrostomy tube placement Primary ice house supervisor: Renny Arriaga MD Ethylene Oxide Panelboard Operator attending | | ice house supervisor: Yung Macias M.D. Preoperative diagnosis: Obstructive hydronephrosis | | Postoperative diagnosis: Pyonephrosis+Operations: Operation 1. [Ultrasound-guided | | access left mid- pole reji] Operation 2. [10-Anguillan nephrostomy tube left renal pelvis | | [...] microwire was introduced allowing placement of the 5-Anguillan coaxial access sheath. | | Contrast was injected. Using flouroscopic guidance dilatation was performed over a | | Amplatz guidewire with an 10-Anguillan dilator and an 10-Anguillan multipurpose catheter was | | inserted with [...] and administered by IR RN.Intra-service | | [id number]-pl-ffwb start time: 14:55Intra-service ncmu-sk-ylxs end time: 15:35Versed 3 | | mgFentanyl [...] pyonephrosis 2. Percutaneous placement left | | 10-Anguillan nephrostomy tube via mid-pole calyx I have [...] the attending physician and administered by IR RN. | |Intra-service gnzw-jp-ihad start time: 14:55 | |Intra-service wjkk-pj-vicx end time: 15:35 | |Versed 3 mg [...] | | | |2. Percutaneous placement left 10-Anguillan nephrostomy tube via mid-pole calyx | | [...] + + + | [facility] | [address] | [place], [place] | | | [facility] | [facility] | [address] | | | TESTS | | | | + + + + + BASIC METABOLIC SET (NA, K, CL, TCO2, BUN, CR, GLU, CA) (07/12/2019 5:07 AM PST) + +---------+ + + + | Component | Value | Ref Range | Performed | Pathologist | | | | | At | Signature | + +---------+ + + + | GLUCOSE, | 89 | 70 - 99 mg/dL | [facility] [...] +---------+ + + + | CREATININE | 1.08 | 0.60 - 1.10 | [facility] | | | PLASMA | | mg/dL | LABORATORY | | | (LAB) | | | SERVICES, | | | | | | CORE | | + +---------+ + + + | EGFR | >60 | >60 mL/min | [facility] | | | - | | | LABORATORY | | | [facility] | | | SERVICES, | | | | | | CORE | | + +---------+ + + + | EGFR NON | 54 (L) | >60 mL/min | [facility] | | | -CLARE | | | LABORATORY | | | RICAN | | | SERVICES, | | | | | | CORE | | + +---------+ + + + | SODIUM, | 137 | 136 - 145 | [facility] | | | PLASMA | | mmol/L | LABORATORY | | | (LAB) | | | SERVICES, | | | | | | CORE | | + +---------+ + + + | POTASSIUM, | 3.9 | 3.4 - 5.0 | [facility] | | | PLASMA | | mmol/L | LABORATORY | | | (LAB) | | | SERVICES, | | | | | | CORE | | + +---------+ + + + | CHLORIDE, | 106 | 97 - 108 mmol/L | [facility] | | | PLASMA | | | LABORATORY | | | (LAB) | | | SERVICES, | | | | | | CORE | | + +---------+ + + + | TOTAL CO2, | 23 | 21 - 32 mmol/L | [facility] | | | PLASMA | | | LABORATORY | | | (LAB) | | | SERVICES, | | | | | | CORE | | + +---------+ + + + | CALCIUM, | 9.3 | 8.6 - 10.2 | [facility] | | | PLASMA | | mg/dL | LABORATORY | | | (LAB) | | | SERVICES, | | | | | | CORE | | + +---------+ + + + | ANION GAP | 8 | 4 - 11 mmol/L | [facility] [...] MDRD equation recommended by the National | [facility] | | Kidney Disease Education Program. Estimated [...] + | [facility] | [address] | [place] [address] | | | SERVICES, CORE | [address] [...] + | [facility] | [address] | [place] [address] | | | SERVICES, | [address] [...] + + + + + | [facility] | [address] [facility] | [place], [place] | | | CARDIOLOGY | [address] | [address] | | + + + + + X-RAY PORTABLE CHEST 1 VIEW (07/11/2019 10:38 PM PST) + + | Specimen | + + | | + + + + + | Narrative | Performed At | + + + | EXAM: [place] CHEST 1 VIEW HISTORY: Syncope, ground-level fall [...] Preliminary: Gibran Rehman MD Dictation initiated: Gibran Escobar | Shawn Rehman MD 07/12/2019 7:37 AM | | + + + + + | Procedure Note | + + | Service Account, Radiant Res In Interface - 07/12/2019 7:39 AM PST EXAM: IL CHEST 1 | | VIEW HISTORY: Syncope, [...] | | | + +---------+ + + JAIR MARROQUIN ONLY (07/11/2019 10:31 PM PST) + + [...] | [facility] | | | GRAVITY | Burton performed by | | LABORATORY | | [...] | + + + + + | [facility] | [address] | [place] [address] | | | SERVICES, CORE | [address] | | | + + + + + CULTURE, URINE [facility] (07/11/2019 10:31 PM PST) + + + + + + | Component | Value | Ref Range | Performed | Pathologist | | | | | At | Signature | + + + + + + | URINE | No growth (<1000 cfu/mL) | | [facility] | | | CULTURE | after 48 hours | | LABORATORY | | | [facility] [...] + | [facility] | [address] | [place] [address] | | | SERVICES, CORE | [address] | | | + + + + + TROPONIN I, PLASMA (07/11/2019 10:31 [...] + | [facility] | [address] | [place] [address] | | | SERVICES, CORE | [address] [...] + | [facility] | [address] | [place] [address] | | | SERVICES, CORE | P[address] [...] + | [facility] | [address] | [place] [address] | | | SERVICES, CORE | [address] | | | + + + + + CBC (HEMOGRAM) ONLY (07/11/2019 10:31 PM PST) + + + + + + | Component | Value | Ref Range | Performed | Pathologist | | | | | At | Signature | + + + + + + | WHITE CELL | 12.63 (H) | 3.50 - 10.80 | [facility] | | | COUNT | | K/cu mm | LABORATORY | | | | | | SERVICES, | | | | | | CORE | | + + + + + + | RED CELL | 4.12 | 4.00 - 5.20 | [facility] | | | COUNT | | M/cu mm | LABORATORY | | | | | | SERVICES, | | | | | | CORE | | + + + + + + | HEMOGLOBIN | 11.7 (L) | 12.0 - 16.0 | [facility] | | | | | g/dL | LABORATORY | | | | | | SERVICES, | | | | | | CORE | | + + + + + + | HEMATOCRIT | 36.7 | 36.0 - 46.0 % | [facility] | | | | | | LABORATORY | | | | | | SERVICES, | | | | | | CORE | | + + + + + + | MCV | 89.1 | 80.0 - 100.0 fL | [facility] | | | | | | LABORATORY | | | | | | SERVICES, | | | | | | CORE | | + + + + + + | MCHC | 31.9 (L) | 32.0 - 36.0 | [facility] | | | | | g/dL | LABORATORY | | | | | | SERVICES, | | | | | | CORE | | + + + + + + | RDW SD | 42.7 | 35.1 - 46.3 fL | [facility] | | | | | | LABORATORY | | | | | | SERVICES, | | | | | | CORE | | + + + + + + | PLATELET | 436 (H) | 150 - 400 K/cu | [facility] | | | COUNT | | mm | LABORATORY | | | | | | SERVICES, | | | | | | CORE | | + + + + + + | MPV | 9.5 (L) | 9.7 - 12.3 fL | [...] + | [facility] | [address] | [place] [address] | | | SERVICES, CORE | [address] [...] | + + + + + | [facility] | [address] | [place] [address] | | | SERVICES, CORE | [address] [...] + | [facility] | [address] | [place] [address] | | | DON, [place]GUY[place] | [address] | | | + [...] + | [facility] | [address] | [place] [address] | | | SERVICES, CORE | P[address] [...] + | [facility] | [address] | [place] [address] | | | SERVICES, | [address] [...] + | [facility] | [address] | [place] [address] | | | SERVICES, | [address] [...] (H) | 23 - 29 mmol/L | [facility] - | | | [facility], POC | | | [facility] | | | | | | [facility] | | | | | | OF CARE | | | | | | TESTS | | + +---------+ + + + | PH VENOUS, | 7.38 | 7.35 - 7.45 | [facility] - | | | POC [...] + + + + + | [facility] | [address] | [place], [place] | | | [facility] | [address] | [address] | | | TESTS | | | | + + + + + documented in this encounter Visit Diagnoses + + | Diagnosis | + + | Hydronephrosis with urinary obstruction due to ureteral calculus - Primary | + + | Syncope, unspecified syncope type | + + | Closed fracture of multiple ribs of left side, initial encounter | + + | Pneumothorax, unspecified type | + + | Nephrolithiasis Calculus of kidney | + + documented in this encounter Administered Medications + +--------+ + +------+------+ | Medication Order | MAR | Action | Dose | Rate | Site | | | Action | Date | | | | + +--------+ + +------+------+ | acetaminophen (TYLENOL) tablet | Given | 07/13/20 | 1,000 mg | | | | 1,000 mg 1,000 mg, oral, THREE | | 19 1:48 | | | | | TIMES DAILY, First dose on Wed | | PM PST | | | | | 07/12/19 at 0900, Until | | | | | | | Discontinued | | | | | | + +--------+ + +------+------+ +-------+ + +---+---+ | Given | 07/13/20 | 1,000 mg | | | | | 19 8:43 | | | | | | AM PST | | | | +-------+ + +---+---+ | Given | 07/12/20 | 1,000 mg | | | | | 19 9:31 | | | | | | PM PST | | | | +-------+ + +---+---+ +---+---+ | | | +---+---+ + +-------+ +-----+---+---+ | cefTRIAXone (ROCEPHIN) | Given | 07/12/20 | 1 g | | | | injection 1 g 1 g, intravenous, | | 19 5:41 | | | | | EVERY 24 HOURS, First dose on Wed | | PM PST | | | | | 07/12/19 at 1500, Until | | | | | | | Discontinued | | | | | | + +-------+ +-----+---+---+ +---+---+ | | | +---+---+ + +---------+ +--------+-------+---+ | ciprofloxacin (CIPRO) IV 400 | New Bag | 07/12/20 | 400 mg | 200 | | | mg in D5W (RTU) 400 mg, | | 19 2:40 | | mL/hr | | | intravenous, INTRAPROCEDURE ONCE, | | PM PST | | | | | 1 dose, Starting Wed07/12/19 at | | | | | | | 1425, Until Wed07/12/19 at 1550 | | | | | | + +---------+ +--------+-------+---+ +---+---+ | | | +---+---+ + +-------+ +--------+---+---+ | fentaNYL (SUBLIMAZE) injection | Given | 07/12/20 | 50 mcg | | | | 25-100 mcg 25-100 mcg, | | 19 3:18 | | | | | intravenous, INTRAPROCEDURE PRN, | | PM PST | | | | | 20 doses, Starting Wed07/12/19 | | | | | | | at 1425, Until Wed07/12/19 at | | | | | | | 1704, periprocedural pain | | | | | | | management | | | | | | + +-------+ +--------+---+---+ +-------+ +--------+---+---+ | Given | 07/12/20 | 50 mcg | | | | | 19 2:44 | | | | | | PM PST | | | | +-------+ +--------+---+---+ | Given | 07/12/20 | 50 mcg | | | | | 19 2:41 | | | | | | PM PST | | | | +-------+ +--------+---+---+ +---+---+ | | | +---+---+ + +-------+ +--------+---+---+ | HYDROmorphone (DILAUDID) | Given | 07/12/20 | 0.2 mg | | | | injection 0.2 mg 0.2 mg, | | 19 4:52 | | | | | intravenous, EVERY 3 HOURS | | AM PST | | | | | NEEDED, Starting 07/12/19 at | | | | | | | 0448, Until [facility] 07/13/19 at 1959, | | | | | | | severe pain | | | | | | + +-------+ +--------+---+---+ + +---+ | | | + +---+ | HYDROmorphone (DILAUDID) | | | injection 1 dose, Starting Wed | | | 07/12/19 at 0450, Until Wed | | | 07/12/19 at 0452 | | + +---+ | | | + +---+ + +-------+ +-------+---+---+ | iohexol (OMNIPAQUE) 300 mg | Given | 07/12/20 | 30 mL | | | | iodine/mL 30 mL 30 mL, | | 19 3:35 | | | | | Intracatheter, ONCE, 1 dose, Wed | | PM PST | | | | | 07/12/19 at 1545 | | | | | | + +-------+ +-------+---+---+ +---+---+ | | | +---+---+ + + + + + +---+ | lactated ringers IV 75 mL/hr, | Rate/Dos | 07/13/20 | 75 mL/hr | 75 mL/hr | | | intravenous, CONTINUOUS, Starting | e Verify | 19 3:00 | | | | | 07/12/19 at 0500, Until [facility] | | AM PST | | | | | 07/13/19 at 0515 | | | | | | + + + + + +---+ + + + + +---+ | Rate/Dose Verify | 07/13/20 | 75 mL/hr | 75 mL/hr | | | | 19 12:41 | | | | | | AM PST | | | | + + + + +---+ | New Bag | 07/12/20 | 75 mL/hr | 75 mL/hr | | | | 19 8:11 | | | | | | PM PST | | | | + + + + +---+ +---+---+ | | | +---+---+ + + + +---------+---+ + | lidocaine (LIDODERM) 5 % patch | Applied | 07/12/20 | 1 patch | | Left Mid | | 1 patch 1 patch, transdermal, | Patch | 19 1:07 | | | Back | | EVERY 24 HOURS, First dose on Wed | | AM PST | | | | | 07/11/19 at 2345, Until | | | | | | | Discontinued | | | | | | + + + +---------+---+ + +---+---+ | | | +---+---+ + +-------+ +--------+---+---------+ | medroxyPROGESTERone | Given | 07/12/20 | 150 mg | | Left | | (DEPO-PROVERA) injection 150 mg | | 19 12:39 | | | Deltoid | | 150 mg, intramuscular, ONCE, 1 | | PM PST | | | | | dose, Wed07/12/19 at 1100 | | | | | | + +-------+ +--------+---+---------+ +---+---+ | | | +---+---+ + +-------+ +------+---+---+ | midazolam (PF) (VERSED) | Given | 07/12/20 | 1 mg | | | | injection 1-5 mg 1-5 mg, | | 19 3:01 | | | | | intravenous, INTRAPROCEDURE PRN, | | PM PST | | | | | 20 doses, Starting Wed07/12/19 | | | | | | | at 1425, Until Wed07/12/19 at | | | | | | | 1704, periprocedural sedation | | | | | | + +-------+ +------+---+---+ +-------+ +------+---+---+ | Given | 07/12/20 | 1 mg | | | | | 19 2:44 | | | | | | PM PST | | | | +-------+ +------+---+---+ | Given | 07/12/20 | 1 mg | | | | | 19 2:41 | | | | | | PM PST | | | | +-------+ +------+---+---+ +---+---+ | | | +---+---+ + +-------+ +------+---+---+ | oxyCODONE (immediate release) | Given | 07/13/20 | 5 mg | | | | (ROXICODONE) tablet 2.5-5 mg | | 19 1:48 | | | | | 2.5-5 mg, oral, EVERY 4 HOURS | | PM PST | | | | | NEEDED, Starting Wed07/12/19 at | | | | | | | 0448, Until Wed07/13/19 at 1959, | | | | | | | moderate pain, unresponsive to | | | | | | | non-opioid medication | | | | | | + +-------+ +------+---+---+ +-------+ +------+---+---+ | Given | 07/13/20 | 5 mg | | | | | 19 6:40 | | | | | | AM PST | | | | +-------+ +------+---+---+ | Given | 07/12/20 | 5 mg | | | | | 19 5:26 | | | | | | PM PST | | | | +-------+ +------+---+---+ +---+---+ | | | +---+---+ + +-------+ +------+---+---+ | polyethylene glycol (MIRALAX) | Given | 07/13/20 | 17 g | | | | packet 17 g 17 g, oral, DAILY, | | 19 8:43 | | | | | First dose on Wed07/12/19 at | | AM PST | | | | | 0900, Until Discontinued | | | | | | + +-------+ +------+---+---+ +-------+ +------+---+---+ | Given | 07/12/20 | 17 g | | | | | 19 9:48 | | | | | | AM PST | | | | +-------+ +------+---+---+ +---+---+ | | | +---+---+ + +-------+ +---------+---+---+ | senna-docusate (SENOKOT S) | Given | 07/13/20 | 2 | | | | 8.6-50 mg 2 tablet 2 tablet, | | 19 8:43 | tablets | | | | oral, TWICE DAILY, First dose on | | AM PST | | | | | 07/12/19 at 0900, Until | | | | | | | Discontinued | | | | | | + +-------+ +---------+---+---+ +-------+ +---------+---+---+ | Given | 07/12/20 | 2 | | | | | 19 9:31 | tablets | | | | | PM PST | | | | +-------+ +---------+---+---+ | Given | 07/12/20 | 2 | | | | | 19 9:47 | tablets | | | | | AM PST | | | | +-------+ +---------+---+---+ +---+---+ | | | +---+---+ documented in this encounter
--- OUTSIDE RECORDS SUMMARY | ~2019-07-25 | XMS | Clinical Summary ---
Demographics + + + | Address | [address] | | | [place] [address] | + + + | Home Phone | | + + + | Preferred Language | Unknown | + + + | Marital Status | Single | + + + | Restorationism Affiliation | Unknown | + + + | Race | Unknown | + + + | Ethnic Group | Unknown | + + + Author + + + | Author | [facility] | | | and [place] | + + + | Organization | [facility] | | | and [place] | [...] Team Providers + +------+ + | Care Grape Picker Name | Role | Phone | + [...]
--- OUTSIDE RECORDS SUMMARY | ~2019-07-25 | XMS | Clinical Summary ---
Demographics + + + | Address | [address] | | | [place] [address] | + + + | Home Phone | | + + + | Preferred Language | Unknown | + + + | Marital Status | Single | + + + | Baptism Affiliation | Unknown | + + + | Race | Unknown | + + + | Ethnic Group | Unknown | + + + Author + + + | Author | [facility] (Historical as of | | | 04-08-19) | + + + | Organization | [facility] (Historical as of | | | 04-08-19) [...] Team Providers + +------+ + | Care Milk Sampler Name | Role | Phone | + [...]
--- OUTSIDE RECORDS SUMMARY | ~2019-07-25 | XMS | Encounter Summary ---
Demographics + + + | Address | [address] | | | [place] [address] | + + + | Home Phone | | + + + | Preferred Language | Unknown | + + + | Marital Status | Single | + + + | Evangelical Affiliation | NRP | + + + [...] Team Providers + +------+ + | Care Embosser Apprentice Name | Role | Phone | + +------+ + | Evi Pozo MD | PCP | | + +------+ + Reason for Visit + + + | Reason | Comments | + + + | Needs Paperwork | | + + + Encounter Details +--------+ + + + + | Date | Type | Department | Care Team | Description | +--------+ + + + + | 07/17/ | Telephone | [facility] at [facility] | Jc Kovacs MD | Needs Paperwork | | 2019 | | [address] | [address] | | | | | Mailcode: [id number] | [place], [place] | | | | [facility] | [address] | | | | | and [place], | [phone] | | | | | [facility] | | | | | | Floor [place], [place] | | | | | | [address] | | | | | | [phone] | | | +--------+ + + + [...] [address] | | | | | | [place], [place] | | | | | | [address] | | | | | | [phone] | | | | | | | | +--------+---------+ + + + | 08/02/ | Office | Pre-operative | 3, [facility] [address] | | | 2019 | Visit | Medicine | [address] | | | | | | [place] [address] | | +--------+---------+ + + + documented as of this encounter Visit Diagnoses Not on filedocumented in this encounter"
--- OUTSIDE RECORDS SUMMARY | ~2019-07-25 | XMS | Encounter Summary ---
Demographics + + + | Address | [address] | | | [place] [address] | + + + | Home Phone | | + + + | Preferred Language | Unknown | + + + | Marital Status | Single | + + + | Anabaptism Affiliation | NRP | + + + | Race | Unknown | + + + | Ethnic Group | or | + + + Author + + + | Author | [facility] | + + + | Organization | [facility] | + + + | Address | Unknown | + + + | Phone | Unavailable | + + + Support + + +---------+ + | Name | Relationship | Address | Phone | + + +---------+ + | Lashonda Gómez | ECON | Unknown | | + + +---------+ + Care Team Providers + +------+ + | Care Media Specialist Name | Role | Phone | + +------+ + | Evi Pozo MD | PCP | | + +------+ + Reason for Visit + + + | Reason | Comments | + + + | Nausea and vomiting | | + + + Encounter Details +--------+ + + + + | Date | Type | Department | Care Team | Description | +--------+ + + + + | 07/24/ | Telephone | Urology at [facility] | Jc Kovacs MD | Nausea and vomiting | | 2019 | | [address] | [address] | | | | | Mailcode: CH10U | [place], [place] | | | | | [facility] | [address] | | | | | and [place], | [phone] | | | | | [facility] | | | | | | Floor [facility] [place] | | | | | | [address] | | | | | | [phone] | | | +--------+ + + + [...] [address] | | | | | | [place] | | | | | | [address] | | | | | | [phone] | | | | | | | | +--------+---------+ + + + | 08/02/ | Office | Pre-operative | 3, [facility] Machine Operator [address] | | | 2019 | Visit | Medicine | [address] | | | | | | [place] [address] | | +--------+---------+ + + + documented as of this encounter Visit Diagnoses Not on filedocumented in this encounter"
--- OUTSIDE RECORDS SUMMARY | ~2019-07-25 | XMS | Encounter Summary ---
Demographics + + + | Address | [address] | | | [place] [address] | + + + | Home Phone | | + + + | Preferred Language | Unknown | + + + | Marital Status | Single | + + + | Christian Affiliation | NRP | + + + | Race | Unknown | + + + | Ethnic Group | or | + + + Author + + + | Author | [facility] | + + + | Organization | [facility] | + + + | Address | Unknown | + + + | Phone | Unavailable | + + + Support + + +---------+ + | Name | Relationship | Address | Phone | + + +---------+ + | Lashonda Gómez | ECON | Unknown | | + + +---------+ + Care Team Providers + +------+ + | Care Gas Operations Analyst Name | Role | Phone | + +------+ + | Evi Pozo MD | PCP | | + +------+ + Reason for Visit + + + | Reason | Comments | + + + | Care Coordination | | + + + Encounter Details +--------+ + + + + | Date | Type | Department | Care Team | Description | +--------+ + + + + | 07/13/ | Telephone | [facility] | Juan Hernandez, | Care Coordination | | 2019 | | [facility] | [address] | | | | | [address] | | | | | [address] | [facility] [place] | | | | | [place] | [address] | | | | | [place], [place] | | | | | | [address] | | | | | | [phone] | | | +--------+ + + + [...] [address] | | | | | | [place], [place] | | | | | | [address] | | | | | | [phone] | | | | | | | | +--------+---------+ + + + | 08/02/ | Office | Pre-operative | 3, [facility] Marketing Analytics Lead [address] | | | 2018 | Visit | Medicine | [address] | | | | | | [place] [address] | | +--------+---------+ + + + documented as of this encounter Visit Diagnoses Not on filedocumented in this encounter"
--- OUTSIDE RECORDS SUMMARY | ~2019-07-25 | XMS | Encounter Summary ---
Demographics + + + | Address | [address] | | | [place] [address] | + + + | Home Phone | | + + + | Preferred Language | Unknown | + + + | Marital Status | Single | + + + | Religion Affiliation | NRP | + + + | Race | Unknown | + + + | Ethnic Group | or | + + + Author + + + | Author | [facility] | + + + | Organization | [facility] | + + + | Address | Unknown | + + + | Phone | Unavailable | + + + Support + + +---------+ + | Name | Relationship | Address | Phone | + + +---------+ + | Lashonda Gómez | ECON | Unknown | | + + +---------+ + Care Team Providers + +------+ + | Care Supervisor Paste Mixing Name | Role | Phone | + [...] | Refill | [facility] at [facility] | Melania Spaulding MD | Medication | | 2019 | | [address] | [address] | Adjustment (Based | | | | Mailcode: CH10U | [address], | off new growth in | | | | [facility] | [place] [address] | urine culture) | | | | and Healing, | [phone] | | | | | Building | | | | | | Floor [place], [place] | | | | | | [address] | | | | | | [phone] | | | +--------+--------+ + + + [...] [address] | | | | | | [place], [place] | | | | | | [address] | | | | | | [phone] | | | | | | | | +--------+---------+ + + + | 08/02/ | Office | Pre-operative | [facility] Equipment Sales Engineer [address] | | | 2019 | Visit | Medicine | [address] | | | | | | [place] [address] | | +--------+---------+ + + + documented as of this encounter Visit Diagnoses Not on filedocumented in this encounter"
--- OUTSIDE RECORDS SUMMARY | ~2019-07-25 | XMS | Encounter Summary ---
Demographics + + + | Address | [address] | | | [place] [address] | + + + | Home Phone | | + + + | Preferred Language | Unknown | + + + | Marital Status | Single | + + + | Taoism Affiliation | NRP | + + + [...] Team Providers + +------+ + | Care Glue Jointer Operator Name | Role | Phone | + [...] | | | | | Josephine Yang [place], | | | | | | [place] [address] | | | | | | [phone] | | | +--------+ + + + [...] [address] | | | | | | [place], [place] | | | | | | [address] | | | | | | [phone] | | | | | | | | +--------+---------+ + + + | 08/02/ | Office | Pre-operative | 3, [facility] Lamp Shade Assembler [address] | | | 2019 | Visit | Medicine | [address] | | | | | | [place] [address] | | +--------+---------+ + + + documented as of this encounter Visit Diagnoses Not on filedocumented in this encounter"
--- OUTSIDE RECORDS SUMMARY | ~2019-07-25 | XMS | Encounter Summary ---
Demographics + + + | Address | [address] | | | [place] [address] | + + + | Home Phone | | + + + | Preferred Language | Unknown | + + + | Marital Status | Single | + + + | Buddhism Affiliation | NRP | + + + | Race | Unknown | + + + | Ethnic Group | or | + + + Author + + + | Author | [facility] | + + + | Organization | [facility] | + + + | Address | Unknown | + + + | Phone | Unavailable | + + + Support + + +---------+ + | Name | Relationship | Address | Phone | + + +---------+ + | Lashonda Gómez | ECON | Unknown | | + + +---------+ + Care Team Providers + +------+ + | Care Banquet Coordinator Name | Role | Phone | + [...] | 07/24/ | Telephone | Urology at [facility] | Jc Kovacs MD | Nausea and vomiting | | 2019 | | [address] | [address] | | | | | Mailcode: CH10U | [place], [place] | | | | | [facility] | [address] | | | | | and [place], | [phone] | | | | | [facility] | | | | | | Floor [facility] [place] | | | | | | [address] | | | | | | [phone] | | | +--------+ + + + [...] [address] | | | | | | [place] | | | | | | [address] | | | | | | [phone] | | | | | | | | +--------+---------+ + + + | 08/02/ | Office | Pre-operative | 3, [facility] Account Clerk [address] | | | 2019 | Visit | Medicine | [address] | | | | | | [place] [address] | | +--------+---------+ + + + documented as of this encounter Visit Diagnoses Not on filedocumented in this encounter"
--- OUTSIDE RECORDS SUMMARY | ~2019-07-25 | XMS | Encounter Summary ---
Demographics + + + | Address | [address] | | | [place] [address] | + + + | Home Phone | | + + + | Preferred Language | Unknown | + + + | Marital Status | Single | + + + | Sabianist Affiliation | NRP | + + + [...] Team Providers + +------+ + | Care Machine Stoppage Frequency Checker Name | Role | Phone | + [...] [place] | | | | | | [address] | | | | | | [phone] | | | | | | | | +--------+---------+ + + + | 08/02/ | Office | Pre-operative | , [facility] Musical String Maker [address] | | | 2018 | Visit | Medicine | [address] | | | | | | [place] [address] | | +--------+---------+ + + + documented as of this encounter Visit Diagnoses Not on filedocumented in this encounter"
--- OUTSIDE RECORDS SUMMARY | ~2019-07-25 | XMS | Encounter Summary ---
Demographics + + + | Address | [address] | | | [place] [address] | + + + | Home Phone | | + + + | Preferred Language | Unknown | + + + | Marital Status | Single | + + + | Christianity Affiliation | NRP | + + + | Race | Unknown | + + + | Ethnic Group | or | + + + Author + + + | Author | [facility] | + + + | Organization | [facility] | + + + | Address | Unknown | + + + | Phone | Unavailable | + + + Support + + +---------+ + | Name | Relationship | Address | Phone | + + +---------+ + | Lashonda Gómez | ECON | Unknown | | + + +---------+ + Care Team Providers + +------+ + | Care Community Marketing Manager Name | Role | Phone | + [...] Urology | Diagnoses | Duty, | Jc Kvoacs | | | | | Kidney | Jc Nunn MD | MD [address] | | | | | stone on | [address] | | | | | left side | [address] | [facility] [place] | | | | | Procedures | [facility] [place] | [address] | | | | | REQUEST TO | [address] | Phone: | | | | | SURGERY | Phone: | [phone] | | | | | SECURITY MANAGEMENT SPECIALIST | [phone] | Fax: | | | | | | Fax: | [phone] | | | | | | [phone] | | + +--------+ + + + + Encounter Details +--------+ + + + + | Date | Type | Department | Care Team | Description | +--------+ + + + + | 07/14/ | Cemetery Worker | Urology at [facility] | Duty, Jc Nunn MD | Kidney stone on left | | 2019 | | [address] | [address] | side (Primary Dx) | | | | Mailcode: CH10U | [place], [place] | | | | | [facility] | [address] | | | | | and Healing, | [phone] | | | | | | | | | | | Floor [facility] [place] | | | | | | [address] | | | | | | [phone] | | | +--------+ + + + [...] Ave | | | | | | [place], [place] | | | | | | [address] | | | | | | [phone] | | | | | | | | +--------+---------+ + + + | 08/02/ | Office | Pre-operative | 3, [facility] Tack Cutter [address] | | | 2019 | Visit | Medicine | [address] | | | | | | [place] [address] | | +--------+---------+ + + + documented as of this encounter Visit Diagnoses + + | Diagnosis | + + | Kidney stone on left side - Primary Calculus of kidney | + + documented in this encounter"
--- OUTSIDE RECORDS SUMMARY | ~2019-07-25 | XMS | Encounter Summary ---
Demographics + + + | Address | [address] | | | [place] [address] | + + + | Home Phone | | + + + | Preferred Language | Unknown | + + + | Marital Status | Single | + + + | Amish Affiliation | NRP | + + + | Race | Unknown | + + + | Ethnic Group | or | + + + Author + + + | Author | [facility] | + + + | Organization | [facility] | + + + | Address | Unknown | + + + | Phone | Unavailable | + + + Support + + +---------+ + | Name | Relationship | Address | Phone | + + +---------+ + | Lashonda Gómez | ECON | Unknown | | + + +---------+ + Care Team Providers + +------+ + | Care Insurance Marketing Specialist Name | Role | Phone | [...] | 07/17/ | Telephone | [facility] at [facility] | Jc Kovacs MD | Needs Paperwork | | 2019 | | [address] | [address] | | | | | Mailcode: CH10U | [place], [place] | | | | | [facility] | [address] | | | | | and [place], | [phone] | | | | | [facility] | | | | | | Floor [place], [place] | | | | | | [address] | | | | | | [phone] | | | +--------+ + + + [...] [address] | | | | | | [place], [place] | | | | | | [address] | | | | | | [phone] | | | | | | | | +--------+---------+ + + + | 08/02/ | Office | Pre-operative | 3, [facility] And Development Professional [address] | | | 2019 | Visit | Medicine | [address] | | | | | | [place] [address] | | +--------+---------+ + + + documented as of this encounter Visit Diagnoses Not on filedocumented in this encounter"
--- OUTSIDE RECORDS SUMMARY | ~2019-07-25 | XMS | Encounter Summary ---
Demographics + + + | Address | [address] | | | [place] [address] | + + + | Home Phone | | + + + | Preferred Language | Unknown | + + + | Marital Status | Single | + + + | Sabianism Affiliation | Unknown | + + + | Race | Unknown | + + + | Ethnic Group | Unknown | + + + Author + + + | Author | [facility] | | | and [place] | + + + | Organization | [facility] | | | and [place] | [...] Team Providers + +------+ + | Care Campground Attendant Name | Role | Phone | + +------+ + PCP | Unavailable | + +------+ + Encounter Details +--------+ + + + + | Date | Type | Department | Care Team | Description | +--------+ + + + + | 09/16/ | Hospital [facility] | [facility] [place] | Calculus of | | 1993 - | Encounter | [facility] [address] | [address] | gallbladder without | | | | [address] | [address], | mention of | | 09/17/ | | [place], [place] | [place] [id number] | cholecystitis or | | 1993 | | [address] | [phone] | obstruction | | | | [phone] | | | +--------+ + + + [...]
--- OUTSIDE RECORDS SUMMARY | ~2019-07-25 | XMS | Encounter Summary ---
Demographics + + + | Address | [address] | | | [place] [address] | + + + | Home Phone | | + + + | Preferred Language | Unknown | + + + | Marital Status | Single | + + + | Tenriism Affiliation | NRP | + + + | Race | Unknown | + + + | Ethnic Group | or | + + + Author + + + | Author | [facility] | + + + | Organization | [facility] | + + + | Address | Unknown | + + + | Phone | Unavailable | + + + Support + + +---------+ + | Name | Relationship | Address | Phone | + + +---------+ + | Lashonda Gómez | ECON | Unknown | | + + +---------+ + Care Team Providers + +------+ + | Care Er Registrar Name | Role | Phone | + [...] | [address] | [address] [facility] | | | | | [place], [place] | [address] | | | 07/13/ | | [address] | [place], [place] | | | 2019 | | [phone] | [address] | | | | | | [phone] | | | | | | | | | | | | Lisa Jalloh MD | | | | | | [address] | | | | | | [place], | | | | | | [place] [address] | | | | | | [phone] | | | | | | | | | | | | Jamilah Bradley, | | | | | | DO [address] | | | | | | [address] | | | | | | [place], [place] | | | | | | [address] | | | | | | [phone] | | | | | | | [...] Bradley DO - 07/13/2019 9:02 AM PST [facility] Discharge Summary Urology Service [facility] UROLOGIC SURGERY DISCHARGE SUMMARY & [...] after a fall/syncopal episode while shopping at [employer] with an obstructing ureteral stone and hydronephrosis. [...] can cause constipation, so you may take rplf-ktq-zeadjeb stool softeners (Senok ot-S, Miralax, Colace) following [...] take care of Mya Najera during this [facility] stay, it has been our pleasure. Please call with any questions. Melania Spaulding MD Urologic Surgery [facility] [id number] I agree with the findings and the [...] Using an Incentive Spirometer", log into your Prior Knowledge a ccount at [email or web address]. You can enter B979 in the "[employer] Library" search box . Not on Prior Knowledge? Review the Appiteratet section of your After Visit Summary for directions on ho w to sign up. Current as of: April 27, 2018 Content Version: 12.20056254-5858 [employer]. Care instructions adapted under license by [facility] [place]. If you have questions about a medical condition or this instr uction, always ask your healthcare professional. [employer] disclaims any milvia anty or liability for [...] "Broken Rib: Care Instructions", log into your Prior Knowledge account at [email or web address]: [email or web address]. You can enter M135 in the "IntooBR" search box. Not on Prior Knowledge? Review the Posehart section of your After Visit Summary for directions on damari gore to sign up. Current as of: May 12, 2018 Content Version: 12.20059081-0050 [employer]. Care instructions adapted under license by [facility]. If you have questions about a medical condition or this instr uction, always ask your healthcare professional. [employer] disclaims any milvia anty or liability for [...] Tube Care: Care Instructions", log into your Kangou nt at [email or web address]. You can enter Z836 in the "[employer] Library" search box. Not on Prior Knowledge? Review the Posehart section of your After Visit Summary for directions on ho w to sign up. Current as of: June 22, 2018 Content Version: 12.20053414-0009 [employer]. Care instructions adapted under license by [facility]. If you have questions about a medical condition or this instr uction, always ask your healthcare professional. [employer] disclaims any milvia anty or liability for [...] 07/13/19 0659 07/13/19699 - 07/14/19 0659 Shift 7085-1282 4693-1130 0621-0014 24 Hour Total 5232-3094 4272-4629 8005-7359 24 Hour Tot al INTAKE [address] [...] Attending Physician: Jamilah Bradley Patient: Mya Najera [id number] is a 48 y.o. female 24H events/Subjective: Afebrile, vital signs appropriate L PCN placed yesterday afternoon, cloudy urine noted, patient kept to monitor Optical Laboratory Technician consulted for misplaced IUD, non-urgent laparoscopic removal [...] for definitive stone management - Will provide CHECK GRADER follow up plan to patient on discharge Dr. Jamilah Bradley is the attending of record for this encounter. Signed: Melania Spaulding MD PGY1 Urologic Surgery [facility] [id number] Renny Maier MD - 3:44 PM PSTINTERVENTIONAL [...] 4. IR will continue to follow. pgr [phone]. Full dictated report forthcoming, which can be [...] Attending Physician: Jamilah Bradley Patient: Mya Najera [id number] is a 48 y.o. female 24H events/Subjective: [...] happen tomorrow v Wednesday as outpatient - CHECK GRADER to see this afternoon regarding misplaced IUD - follow up as outpatient for definitive stone management Dr. Jamilah Bradley is the attending of record for this encounter. Signed: Michael Taylor MD [facility] Urology PGY2 Pager [phone] documented in this en counter Plan of Treatment +--------+---------+ + + + | Date | Type | Specialty | Care Team | Description | +--------+---------+ + + + | 08/02/ | Office | Urology | Jc Kovacs MD | | | 2018 | Visit | | [address] | | | | | | [place], [place] | | | | | | [address] | | | | | | [phone] | | | | | | | | +--------+---------+ + + + | 08/02/ | Office | Pre-operative | 3, [facility] Pathology Technician [address] | | | 2019 | Visit | Medicine | [address] | | | | | | [place] [address] | | +--------+---------+ + + + documented [...] | + + + + + | [facility] | [address] | [place] [address] | | | SERVICES, CORE | MYNOR [...] | | | LABORATORY | | | HAITIAN | | | SERVICES, | | | [...] MDRD equation recommended by the National | [facility] | | Kidney Disease Education [...] | + + + + + | [facility] | [address] | [place] [address] | | | SERVICES, NGUYEN | MYNOR [...] + | [facility] - | [address] | [place] [address] | | | [place] | | | [...] [facility] | [address] | [place] [address] | | | SERVICES, CORE | [address] | | | + + + + + IR NEPHROSTOMY PLACEMENT (07/12/2019 3:34 PM PST) + + | Specimen | + + | | + + + + + | Narrative | Performed At | + + + | Procedure: Left nephrostomy tube placement Primary ornamental metal worker apprentice: | VIKKI | | Renny Arriaga MD House Manager attending ornamental metal worker apprentice: Gilberto | RADIOLOGY VOICE | | Yung Balderas M.D. Preoperative diagnosis: Obstructive hydronephrosis | RECOGNITION 2 | | Postoperative diagnosis: Pyonephrosis + Operations: Operation | | | 1. [Ultrasound-guided access left mid- pole reji] Operation 2. | | | [10-Azerbaijani nephrostomy tube left renal pelvis Indications: | [...] allowing | | | placement of the 5-Azerbaijani coaxial access sheath. Contrast was | | | injected. Using flouroscopic guidance dilatation was performed over | | | a Amplatz guidewire with an 10-Azerbaijani dilator and an 10-Azerbaijani | | | multipurpose catheter was inserted [...] by IR | | | RN. Intra-service ikup-ew-kipf start time: 14:55 Intra-service | | | xdug-je-vitd end time: 15:35 Versed 3 mg Fentanyl [...] | | pyonephrosis 2. Percutaneous placement left 10-Azerbaijani | | | nephrostomy tube via mid-pole [...] Note | + + | Service Account, Trendabl Res In Interface - 07/14/2019 5:14 PM PST Procedure: Left | | nephrostomy tube placement Primary ornamental metal worker apprentice: Renny Arriaga MD House Manager attending | | ornamental metal worker apprentice: Yung Macias M.D. Preoperative diagnosis: Obstructive hydronephrosis | | Postoperative diagnosis: Pyonephrosis+Operations: Operation 1. [Ultrasound-guided | | access left mid- pole reji] Operation 2. [10-Azerbaijani nephrostomy tube left renal pelvis | | [...] microwire was introduced allowing placement of the 5-Azerbaijani coaxial access sheath. | | Contrast was injected. Using flouroscopic guidance dilatation was performed over a | | Amplatz guidewire with an 10-Azerbaijani dilator and an 10-Azerbaijani multipurpose catheter was | | inserted with [...] and administered by IR RN.Intra-service | | pssq-es-jtlf start time: 14:55Intra-service vlhb-wl-yusi end time: 15:35Versed 3 | | mgFentanyl [...] pyonephrosis 2. Percutaneous placement left | | 10-Azerbaijani nephrostomy tube via mid-pole calyx I have [...] and administered by IR RN. | |Intra-service ypyf-uw-gwvz start time: 14:55 | |Intra-service rsly-ul-ogxu end time: 15:35 | |Versed 3 mg [...] | | | |2. Percutaneous placement left 10-Azerbaijani nephrostomy tube via mid-pole calyx | | [...] + + + | [facility] | [address] | [place], [place] | | | [facility] | [facility] | [address] | | | TESTS | | | [...] | | | LABORATORY | | | HAITIAN | | | SERVICES, | | | [...] MDRD equation recommended by the National | [facility] | | Kidney Disease Education [...] [facility] | [address] | [place] [address] | | | SERVICES, CORE | [address] [...] [facility] | [address] | [place] [address] | | | SERVICES, | [address] [...] + | [facility] | [address] [facility] | [place], [place] | | | CARDIOLOGY | [address] | [address] | | + + + + + X-RAY PORTABLE CHEST 1 VIEW (07/11/2019 10:38 PM PST) + + | Specimen | + + | | + + + + + | Narrative | Performed At | + + + | EXAM: [place] CHEST 1 VIEW HISTORY: Syncope, ground-level fall [...] Interface - 07/12/2019 7:39 AM PST EXAM: [place] CHEST 1 | | VIEW HISTORY: Syncope, [...] | [facility] | | | GRAVITY | [place] performed by | | LABORATORY | | [...] | + + + + + | [facility] | [address] | [place] [address] | | | SERVICES, CORE | MYNOR [...] [facility] | [address] | [place] [address] | | | SERVICES, CORE | [address] [...] [facility] | [address] | [place] [address] | | | SERVICES, CORE | [address] [...] [facility] | [address] | [place] [address] | | | SERVICES, CORE | [address] [...] [facility] | [address] | [place] [address] | | | SERVICES, CORE | P[address] [...] [facility] | [address] | [place] [address] | | | SERVICES, CORE | MYNOR [...] | + + + + + | [facility] [employer] | [address] | [place] [address] | | | SERVICES, CORE | [address] [...] [facility] | [address] | [place] [address] | | | DON, NGUYEN | MYNOR [...] [facility] | [address] | [place] [address] | | | SERVICES, CORE | P[address] [...] [facility] | [address] | [place] [address] | | | SERVICES, | [address] [...] [facility] | [address] | [place] [address] | | | SERVICES, | [address] [...] Alberto [facility] | [address] | [place], [place] | | | [facility] | [address] | [address] | | | TESTS | | | [...] | | | | | 0448, Until [facility] 07/13/19 at 1959, | | | | [...]
--- OUTSIDE RECORDS SUMMARY | ~2019-07-25 | XMS | Encounter Summary ---
Demographics + + + | Address | [address] | | | [place] [address] | + + + | Home Phone | | + + + | Preferred Language | Unknown | + + + | Marital Status | Single | + + + | Gnosticist Affiliation | Unknown | + + + | Race | Unknown | + + + | Ethnic Group | Unknown | + + + Author + + + | Author | [facility] | | | and [place] | + + + | Organization | [facility] | | | and [...] Team Providers + +------+ + | Care Computed Tomography Technician Name | Role | Phone | + [...] [address] | | | | | [place], [place] | [place] [address] | | | | | [address] | [phone] | | | | | [phone] | | | +--------+ + + + [...]
--- OUTSIDE RECORDS SUMMARY | ~2019-07-25 | XMS | Encounter Summary ---
Demographics + + + | Address | [address] | | | [place] [address] | + + + | Home Phone | | + + + | Preferred Language | Unknown | + + + | Marital Status | Single | + + + | Sabianist Affiliation | NRP | + + + | Race | Unknown | + + + | Ethnic Group | or | + + + Author + + + | Author | [facility] | + + + | Organization | [facility] | + + + | Address | Unknown | + + + | Phone | Unavailable | + + + Support + + +---------+ + | Name | Relationship | Address | Phone | + + +---------+ + | Lashonda Gómez | ECON | Unknown | | + + +---------+ + Care Team Providers + +------+ + | Care Seaport Planning Manager Name | Role | Phone | [...] | | 2019 | | [facility] | [place] [address] | | | | | [place] [address] | [address] | | | | | [address] | [facility] [place] | | | | | [place] | [address] | | | | | [place], [place] | | | | | | [address] | | | | | | [phone] | | | +--------+ + + + [...] [address] | | | | | | [place], [place] | | | | | | [address] | | | | | | [phone] | | | | | | | | +--------+---------+ + + + | 08/02/ | Office | Pre-operative | 3, [facility] [address] | | | 2018 | Visit | Medicine | [address] | | | | | | [place] [address] | | +--------+---------+ + + + documented as of this encounter Visit Diagnoses Not on filedocumented in this encounter"
--- OUTSIDE RECORDS SUMMARY | 2019-07-25 10:28 | XMS ---
PreManage Notification: DEVIKA CHAPMAN Security Crepe Box Tender Events No recent Security Events currently on file CRITERIA MET - [facility] - [facility] - 2 Visits in 30 Days CARE PROVIDERS JESSICA LU Primary Care Current PHONE: Unknown FAROOQ CONNELLY [facility] RODRIGUEZ PHONE: Unknown Tyrell has no Care Guidelines for this patient. Maria De Jesus VISIT COUNT (12 MO.) 1 [facility] 1 [facility] [address] TOTAL 4 NOTE: Visits indicate total known visits. ED/UCC VISIT TRACKING (12 MO.) 07/25/2019 10:26 [facility] TYPE: Emergency COMPLAINT: - DEHYDRATION, VOMITING, POST OP PROBLEM? 07/11/2019 22:07 [facility] TYPE: Emergency DIAGNOSES: 83860. 2 broken ribs and pneumothorax 63870. Hydronephrosis with renal and ureteral calculous obstruction 68984. Multiple fractures of ribs, left side, [place] [address]. Pneumothorax, unspecified . Calculus of kidney 32305. Syncope and collapse 07/11/2019 13:20 [facility] [place] TYPE: Emergency COMPLAINT: - WEAKNESS DIAGNOSES: - Nicotine dependence, unspecified, uncomplicated - Sepsis, unspecified organism Sepsis, u - Weakness - Pneumothorax, unspecified - Multiple fractures of ribs, left side, init for clos fx - Hydronephrosis with renal and ureteral calculous obstruction - Striking against or struck by other objects, init encntr 03/30/2019 06:06 [facility] [place] TYPE: Emergency DIAGNOSES: - LEFT ABD PAIN RADIATES UP AND TO RIBS - Calculus of kidney - Unspecified abdominal pain INPATIENT VISIT TRACKING (12 MO.) 07/11/2019 22:07 [facility] TYPE: Urology DIAGNOSES: 83604. Pneumothorax, unspecified 54078. Multiple fractures of ribs, left side, init for clos fx . Hydronephrosis with renal and ureteral calculous obstruction . Calculus of kidney . Syncope and collapse [email or web address]
[2019-07-25] MEDS ORDERED: KEFLEX500 MG PO (14:14)
[2019-07-25] MEDS ORDERED: ZOFRAN4 MG PO (14:14)
== END 2019-07-25 14:25 | disposition home or self-care (01) ==
LOC: ED 10:24
DX: N20.2 Calculus of kidney with calculus of ureter (principal); N39.0 Urinary tract infection, site not specified
CPT/HCPCS: 71046; 74177; 80053; 81001; 83735; 84703; 85025; 99284-25; Q9967

== ENCOUNTER 2019-09-28 05:35 | Day surgery (SDC) | payer OTHER ==
[~2019-09-28] VITALS: Ht 172.7 cm; Wt 72.6 kg
[~2019-09-28 05:35] MED LIST changes: +KEFLEX500 MG PO; +ZOFRAN4 MG PO
[2019-09-28] MEDS ORDERED: TURMERIC500 M2 PO (05:54)
[2019-09-28] MEDS ORDERED: POTASSIUM CITRA5 MEQ PO (05:55)
[2019-09-28] MEDS ORDERED: DAILY MULTIPLE1 EACH PO (05:55)
[2019-09-28] MEDS ORDERED: MOTRIN IB200 MG PO (09:51)
[2019-09-28] MEDS ORDERED: NORCO 5-325 TA1 EACH PO (09:52)
--- NOTE | 2019-09-28 11:13 | OR ---
[facility] [address] [facility] [place], [place] [address] Signed DATE OF OPERATION: 09/28/2019 SURGEON: Evangleista Donaldson DO PREOPERATIVE DIAGNOSIS: Displaced intrauterine device. POSTOPERATIVE DIAGNOSES: 1. Displaced intrauterine device. 2. Abdominal adhesions of the omentum to the anterior abdominal wall above the umbilicus. PROCEDURES PERFORMED: Laparoscopic removal of displaced IUD. NEWS BROADCASTER: Raymon Chopra MD ANESTHESIA: General. ESTIMATED BLOOD LOSS: 5 mL. SPECIMENS: None (IUD was removed but not sent for gross pathology). FINDINGS: Normal external genitalia, vagina, cervix, and uterus. On laparoscopy, dense omental adhesions to anterior abdominal wall superior to the umbilicus. No other abdominal or pelvic adhesions noted. IUD was lightly adherent to the perirectal fat, but was easily bluntly removed with no bleeding or bowel involvement. Normal uterus, tubes, and ovaries. COMPLICATIONS: None. INDICATIONS: Ms. Chapman is a pleasant 49-year-old female, who presented with an incidentally noted displaced IUD. CT shows that the IUD is in the pelvis, possibly involving the perirectal fat. The patient was consented for laparoscopic removal of displaced IUD and Electronically Signed By: EVANGELISTA DONALDSON DO 09/28/19 1113 PATIENT NAME: DEVIKA CHAPMAN OPERATIVE REPORT DATE OF : 68 REPORT #: [id number] PHYSICIAN: EVANGELISTA DONALDSON DO PCP: JESSIAC LU MD REPORT IS CONFIDENTIAL AND NOT TO BE RELEASED WITHOUT AUTHORIZATION [facility] [address] [place], [place] [address] Signed has been placed on Depo-Provera for cycle control and for contraception. Risks, benefits, and alternatives were discussed in detail with the patient. The case was discussed with Dr. Josue of General Surgery preoperatively in case bowel involvement was noted. TECHNIQUE: The patient was taken to the operating room. A time-out was performed to confirm correct patient and correct procedure. General anesthesia was adequately established. The patient was prepped and draped in dorsal lithotomy position with feet in Yellofin stirrups. ICPs were on and running. No heparin or antibiotics were indicated. A Abhilash retractor was placed in the vagina and the anterior lip of the cervix was grasped with an Allis clamp. The cervix was gently dilated using Hegar dilators and a PopbasiclInterValve uterine manipulator was placed. A Mendoza catheter was inserted. The surgeon's gloves were changed. Attention was turned to the abdomen. Given her history of prior bariatric surgery, decision was made to proceed with a Denise open technique for establishing pneumoperitoneum. The abdomen inferior to the umbilicus was treated with 0.25% Marcaine and an incision was made along prior periumbilical scar. The fascia was grasped with hemostats, elevated and entered sharply with Metzenbaum scissors. The superior and inferior edge of the fascial incision was tagged with 0 Vicryl and the peritoneum was entered bluntly. An S retractor was used to elevate the peritoneum after palpating no adhesions near peritoneal entry. A 10 mm Denise port was then placed and survey of the abdomen and pelvis was performed after pneumoperitoneum was established. 5 mm assist ports were placed under direct visualization in the left and right lower quadrants without difficulty. Dense omental adhesions were noted in the anterior abdominal wall in the midline above the umbilicus. The patient did not have any complaints and these were not brought down at this time. Attention was turned to the pelvis. The IUD strings were identified and the IUD was noted to be adherent to perirectal fat. This was noted to be not densely adherent and the IUD was easily bluntly removed without bowel involvement. The perirectal fat was hemostatic. The IUD was removed through the 10 mm trocar without difficulty. Survey of the pelvis again showed no bleeding or other abnormalities. Pneumoperitoneum was then reduced and trocars were removed. The fascia at the periumbilical incision was then repaired using 0 Vicryl in a running nonlocked manner. The stay sutures were then tied to reinforce this incision. The skin was reapproximated using 4-0 Vicryl in a running subcuticular stitch with good hemostasis, cosmesis. The Hulka uterine manipulator and the Mendoza catheter removed. The patient was taken to PACU in good and stable condition. Sponge, needle, and instrument count was correct x2 at the end of procedure. Dr. Chopra was present and participated in all portions of procedure. Electronically Signed By: EVANGELISTA DONALDSON DO 09/28/19 1113 PATIENT NAME: DEVIKA CHAPMAN OPERATIVE REPORT DATE OF : 68 REPORT #: [id number] PHYSICIAN: EVANGELISTA DONALDSON DO PCP: JESSICA LU MD REPORT IS CONFIDENTIAL AND NOT TO BE RELEASED WITHOUT AUTHORIZATION [address] [address] Signed Evangelista Donaldson DO JDW/MODL /[id number] Copies: ~ Electronically Signed By: EVANGELISTA DONALDSON DO 09/28/19 1113 PATIENT NAME: DEVIKA CHAPMAN OPERATIVE REPORT DATE OF : 68 REPORT #: [id number] PHYSICIAN: EVANGELISTA DONALDSON DO PCP: JESSICA LU MD REPORT IS CONFIDENTIAL AND NOT TO BE RELEASED WITHOUT AUTHORIZATION
== END 2019-09-28 10:15 | disposition home or self-care (01) ==
LOC: OPS 05:35 → DS 05:35 → OPS 06:45 → DS 06:45 → OPS 10:15
PROVIDERS: Obstetrics & Gynecology
PROC: 0UPD4HZ Removal of Contraceptive Device from Uterus and Cervix, Percutaneous Endoscopic Approach (ICD-10-PCS; principal; 2019-09-28 06:45)
DX: T83.32XA Displacement of intrauterine contraceptive device, initial encounter (principal); K66.0 Peritoneal adhesions (postprocedural) (postinfection); G43.909 Migraine, unspecified, not intractable, without status migrainosus; F17.200 Nicotine dependence, unspecified, uncomplicated; Z79.899 Other long term (current) drug therapy
CPT/HCPCS: 00940; J1100; J1885; J2001; J2405; J2704; J3010; J7121

== ENCOUNTER 2019-10-31 13:48 | Emergency (ER) | payer OTHER ==
[~2019-10-31] VITALS: Ht 172.7 cm; Wt 72.6 kg
[~2019-10-31 13:48] MED LIST changes: +DAILY MULTIPLE1 EACH PO; +MOTRIN IB200 MG PO; +NORCO 5-325 TA1 EACH PO; +POTASSIUM CITRA5 MEQ PO; +TURMERIC500 M2 PO
--- OUTSIDE RECORDS SUMMARY | 2019-10-31 13:52 | XMS ---
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 Care History Medical/Surgical 07/25/2019 [facility] - Patient is currently established with [facility]. If patient is seen in the ED during business hours. Please contact CHWs at [facility]. Care Recommendation: If this patient has had 5 or more Emergency Department visits in the last 12 months.\T\nbsp; Patient will require education on the scope and purpose of the ED as an acute care provider not a Primary Care Provider and should not be utilized for chronic conditions.\T\nbsp; These are guidelines and the provider should exercise clinical judgment when providing care. E.D. VISIT COUNT (12 MO.) 1 [facility] 1 [facility] 3 [facility] TOTAL 5 NOTE: Visits indicate total known visits. ED/UCC VISIT TRACKING (12 MO.) 10/31/2019 13:50 [facility] TYPE: Emergency COMPLAINT: - SOB 07/25/2019 10:26 [facility] [place] TYPE: Emergency COMPLAINT: - DEHYDRATION, VOMITING, POST OP PROBLEM DIAGNOSES: - Nausea with vomiting, unspecified - Calculus of kidney with calculus of ureter - Urinary tract infection, site not specified 07/11/2019 22:07 [facility] TYPE: Emergency DIAGNOSES: 29328. 2 broken ribs and pneumothorax 88809. Hydronephrosis with renal and ureteral calculous obstruction 65505. Multiple fractures of ribs, left side, [place] [address]. Pneumothorax, unspecified 94317. Calculus of kidney 19458. Syncope and collapse 07/11/2019 13:20 [facility] [place] TYPE: Emergency COMPLAINT: - WEAKNESS DIAGNOSES: - Nicotine dependence, unspecified, uncomplicated - Sepsis, unspecified organism Sepsis, u - Weakness - Pneumothorax, unspecified - Multiple fractures of ribs, left side, init for clos fx - Hydronephrosis with renal and ureteral calculous obstruction - Striking against or struck by other objects, init encntr 03/30/2019 06:06 [facility] [place] TYPE: Emergency DIAGNOSES: - LEFT ABD PAIN RADIATES UP AND TO RIBS - Calculus of kidney - Unspecified abdominal pain INPATIENT VISIT TRACKING (12 MO.) 07/11/2019 22:07 [facility] TYPE: Urology DIAGNOSES: 972[address]. Pneumothorax, unspecified 64126. Multiple fractures of ribs, left side, [place] [address]4766. Hydronephrosis with renal and ureteral calculous obstruction 29904. Calculus of kidney 19065. Syncope and collapse [email or web address]
--- NOTE | 2019-10-31 22:37 | EKG ---
[facility] [address] [facility] [place], [place] [address] Signed Normal sinus rhythm Normal ECG When compared with ECG of 11-JUL-2019 17:29, No significant change was found Confirmed by NIKITA ALBERT MD ([id number]) on 10/31/2019 10:37:35 PM Electronically Signed By: NIKITA ALBERT MD 10/31/19 2237 PATIENT NAME: DEVIKA CHAPMAN Electrocardiogram DATE OF : 68 PHYSICIAN: NIKITA ALBERT MD REPORT #: [id number] REPORT IS CONFIDENTIAL AND NOT TO BE RELEASED WITHOUT AUTHORIZATION
== END 2019-10-31 19:11 | disposition home or self-care (01) ==
LOC: ED 13:48
DX: R07.9 Chest pain, unspecified (principal); F17.200 Nicotine dependence, unspecified, uncomplicated
CPT/HCPCS: 71045; 80053; 84484; 85025; 85379; 93005; 93010; 99285-25

== ENCOUNTER 2021-11-15 05:14 | Emergency (ER) | payer OTHER ==
[~2021-11-15] VITALS: Ht 172.7 cm; Wt 65.8 kg
[2021-11-15] MEDS ORDERED: VITAMIN D310 MC4 PO (05:43)
[2021-11-15] MEDS ORDERED: IRON18 MG PO (05:44)
[2021-11-15] MEDS ORDERED: MAGNESIUM30 MG PO (05:44)
--- NOTE | 2021-11-16 13:45 | EKG ---
[facility] [address] [facility] [place] [address] Signed Normal sinus rhythm Low voltage QRS Borderline ECG When compared with ECG of 31-OCT-2019 14:48, No significant change was found Confirmed by JUAN ALBERTO TORRES MD ([id number]) on 11/16/2021 1:45:11 PM Electronically Signed By: JUAN ALBERTO TORRES MD 11/16/21 1345 PATIENT NAME: ADELAEDVIKAROSA FONTANA Electrocardiogram DATE OF : 68 PHYSICIAN: JUAN ALBERTO TORRES MD REPORT #: [id number] REPORT IS CONFIDENTIAL AND NOT TO BE RELEASED WITHOUT AUTHORIZATION
== END 2021-11-15 06:50 | disposition home or self-care (01) ==
LOC: ED 05:14
DX: R07.89 Other chest pain (principal); F17.200 Nicotine dependence, unspecified, uncomplicated; Z79.899 Other long term (current) drug therapy
CPT/HCPCS: 36415; 71045; 80053; 84484; 85025; 93005; 93010; 99285-25; J7030

== ENCOUNTER 2021-11-17 10:08 | Emergency (ER) | payer OTHER ==
[~2021-11-17] VITALS: Ht 172.7 cm; Wt 65.8 kg
[~2021-11-17 10:08] MED LIST changes: +IRON18 MG PO; +MAGNESIUM30 MG PO; +VITAMIN D310 MC4 PO
--- OUTSIDE RECORDS SUMMARY | 2021-11-17 10:14 | XMS ---
PreManage Notification: DEVIKA CHAPMAN Security Night [employer] Events No recent Security Events currently on file CRITERIA MET - [facility] - 2 Visits in 30 Days CARE PROVIDERS TABITHA ANDERSEN Internal Medicine: Pulmonary Disease 07/25/2019-Current PHONE: Unknown Tyrell has no Care Guidelines for this patient. Care History Medical/Surgical 11/01/2019 [facility] Patient seen for chest pain.\T\nbsp; Asked if Dr. Pozo can get her on for follow up with PCP. They will call patient to confirm. 11/01/2019 [facility] Patient seen for chest pain.\T\nbsp; Has scheduled appointment with Dr. Donaldson on 11/10/2019 07/25/2019 [facility] - Patient is currently established with [facility]. If patient is seen in the ED during business hours. Please contact CHWs at [facility]. Care Recommendation: If this patient has [...] providing care. E.D. VISIT COUNT (12 MO.) 2 CRISTELA Esposito TOTAL 2 NOTE: Visits indicate total known visits. ED/UCC VISIT TRACKING (12 MO.) 11/17/2021 10:09 C[facility]ELA [facility] [place] TYPE: Emergency COMPLAINT: - CHEST PAIN RADIATING TO L SIDE OF FACE 11/15/2021 05:14 [facility] [place] TYPE: Emergency COMPLAINT: - CHEST PAIN INPATIENT VISIT TRACKING (12 MO.) No inpatient visits to display in this time frame [id number]
--- NOTE | 2021-11-20 11:41 | EKG ---
[facility] [address] [facility] [place] [address] Signed Normal sinus rhythm Low voltage QRS Borderline ECG When compared with ECG of 15-NOV-2021 05:17, No significant change was found Confirmed by JUAN ALBERTO TORRES MD ([id number]) on 11/20/2021 11:41:30 AM Electronically Signed By: JUAN ALBERTO TORRES MD 11/20/21 1141 PATIENT NAME: ADELADEVIKA Electrocardiogram DATE OF : 68 PHYSICIAN: JUAN ALBERTO TORRES MD REPORT #: [id number] REPORT IS CONFIDENTIAL AND NOT TO BE RELEASED WITHOUT AUTHORIZATION
== END 2021-11-17 12:15 | disposition home or self-care (01) ==
LOC: ED 10:08
DX: R07.9 Chest pain, unspecified (principal); M54.12 Radiculopathy, cervical region; N18.30 Chronic kidney disease, stage 3 unspecified; F17.200 Nicotine dependence, unspecified, uncomplicated; Z79.899 Other long term (current) drug therapy
CPT/HCPCS: 36415; 71045; 80053; 84484; 85025; 93005; 93010; 99285-25

== ENCOUNTER 2022-09-17 08:52 | Day surgery (SDC) | payer OTHER ==
[~2022-09-17] VITALS: Ht 172.7 cm; Wt 68.2 kg
[~2022-09-17 08:52] MED LIST changes: +METOPROLOL SUCC25 MG PO; +TURMERIC500 M3 PO
[2022-09-17] MEDS ORDERED: OXYCODON-ACETA1 EAC2 PO (14:24)
[2022-09-17] MEDS ORDERED: ACETAMINOPHEN500 MG PO (14:24)
[2022-09-17] MEDS ORDERED: IBUPROFEN600 MG PO (14:24)
--- NOTE | 2022-09-18 10:58 | OR ---
[facility] [address] [place], [place] [address] Signed DATE OF OPERATION: 09/17/2022 SURGEON: Naseem Griffin MD PREOPERATIVE DIAGNOSIS: Left mid breast infiltrating ductal carcinoma (nonpalpable) x2 foci in same quadrant. POSTOPERATIVE DIAGNOSES: 1. Left mid breast infiltrating ductal carcinoma (nonpalpable) x2 foci in same quadrant. 2. Additional regional microcalcifications. 3. Benign-appearing sentinel lymph node, left axilla. PROCEDURES: 1. Injection of methylene blue dye for sentinel lymph node identification. 2. Deep rather left axillary deep sentinel lymph node biopsy. 3. Left needle localized excision x2 (partial mastectomy) lateral breast. ANESTHESIA: General endotracheal; Garry Sanchez CRNA INDICATIONS: This 52-year-old white woman is a patient of Dr. Evi Pozo. She had an abnormal mammogram, found to have two separate areas in the upper outer and lateral aspect of the breast on the left side, which were biopsied and found to have infiltrating ductal carcinoma. The specimen tumor size was at least 1.5 and 1.3 cm. 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 She has no palpable mass in the breast. She does have family history of breast cancer in her mother. She appears to have both lesions in the same quadrant and on that basis breast conservation therapy remains an option. She is therefore here today for double needle localization of the lesions in question with partial mastectomy as well as sentinel lymph node biopsy. She understands as does her mother the risks of bleeding, infection, cosmetic deformity, and other unforeseen complications and wished to proceed. FINDINGS: Radiologist noted several areas of microcalcifications within the breast in the area in question. Needle localization was optimized to include not only the radiopaque marker marking the previously biopsied breast cancer sites, but also other microcalcifications which are as yet undiagnosed. Specimen radiograph confirmed the areas in question excised fully. This culminated in approximately one-quarter of breast excision (partial mastectomy) within the same general region. Electronically Signed By: NASEEM GRIFFIN MD 09/18/22 1058 PATIENT NAME: DEVIKA CHAPMAN OPERATIVE REPORT DATE OF : 68 REPORT #: [id number] PHYSICIAN: NASEEM GRIFFIN MD PCP: EVI POZO MD REPORT IS CONFIDENTIAL AND NOT TO BE RELEASED WITHOUT AUTHORIZATION [address] [address] Signed As regard to sentinel lymph node, a 2 cm lymph node was identified with both dye and radionuclide. Final pathology is pending. There were no other areas of the left axilla that were considered "hot" or showed sign of methylene blue uptake. At conclusion, cosmesis appeared good. DESCRIPTION OF PROCEDURE: The patient was brought to the operating room after being received from radiology suite. The review of the films with radiologist and plans for double needle localization with excision as well as sentinel lymph node biopsy. She was given a general endotracheal anesthetic. After administration of Ancef, sequential compression device stockings used and heparin subcutaneously administered. The left breast and axilla were prepared with a Betadine solution after trimming and wires. Notably, the localizing wires emanated from the lateral aspect of the breast in the midportion. The medial one was a few centimeters from the areolar margin, the lateral one closer to the infra and lateral breast crease both direct to the same general area. After preparation with Betadine spray solution and sterile draping, the axilla was interrogated with the C-Trak probe. The area of highest uptake was designated in a small transverse incision made in the lower axillary area. Dissection was carried through the dermis with electrocautery and using blunt electrocautery dissection and [facility] retractors, the axillary area more fully exposed. Using blunt dissection with a tonsil clamp, a blue lymphatic, in fact two lymphatics were identified and followed to an area with a relatively larger lymph node at least 1.5 and possibly 2 cm in size. It was not firm, but did have radioactive uptake as well as blue dye. This was dissected free from surrounding soft tissue. The vascular pedicle was secured with a 2-0 Vicryl. The specimen was passed as left axillary sentinel lymph node. Additional interrogation of the axilla did not show any further lymphatic identification or any significantly radioactive areas and the wound was then packed with gauze. Consideration was then made for partial mastectomy. The two wires were not far from each other one laterally and near the breast crease and the other a few centimeters from the areolar margin. The more medial wire which was in the lateral aspect of the breast was designated as 1st for excision. A curvilinear incision was made incorporating the wire avoiding the areolar margin as had initially been planned. Dissection was carried through the subcutaneous tissue. The wire was delivered into the wound and the parenchyma was grasped with an Allis clamp. Using the electrocautery, the wire was followed down deep into the parenchyma of the breast, excising it widely. Excision was extended beyond the tip of the wire as well. Once excised, the specimen was oriented with a short stitch superior and a long stitch lateral. Electrocautery was used for hemostasis. The wound was inspected for bleeding with the assistance of sterile water Electronically Signed By: NASEEM GRIFFIN MD 09/18/22 1058 PATIENT NAME: DEVIKA CHAPMAN OPERATIVE REPORT DATE OF : 68 REPORT #: [id number] PHYSICIAN: NASEEM GRIFFIN MD PCP: EVI POZO MD REPORT IS CONFIDENTIAL AND NOT TO BE RELEASED WITHOUT AUTHORIZATION [facility] [address] [place], [place] [address] Signed irrigation. Attention was turned towards the lateral wire, which was near the breast crease laterally. Gentle tugging on the wire revealed that this wire was only superficially deeper than the initial biopsy cavity. On that basis, the same incision was used. An Allis clamp was used to grasp the wire at its tip, ultimately allow for delivery of the wire from its lateral position into the wound itself. Wide resection was undertaken with electrocautery including the tip of the wire down to the chest wall. At the very distal portion of the excision deeply was a firm nodule highly consistent with malignancy and most likely the lesion in question. The specimen was oriented with sutures as previously noted and additional long stitch attached to the suspicious nodule at the tip. Reinspection of the depths of the wound showed no remaining parenchyma in relation to the area excised. There was no sign of residual tumor grossly. Irrigation was undertaken in this cavity with sterile water, ultimately allow for good hemostasis. The breast parenchyma was rearranged to fill in the defect, which was reasonably large. Interrupted 2-0 Vicryl was used to secure the breast parenchyma fully. The deep dermal layer was similarly reapproximated and running subcuticular 3-0 Vicryl was used for the skin. By this point, specimen radiographs confirmed that the areas in question (markers) were included in the excised specimen as well as the offending calcifications that were additionally noted and sized. The axillary wound was found to be hemostatic and it was closed in layers with interrupted 2-0 Vicryl and running subcuticular 3-0 Vicryl for the skin as well. Steri-Strips were applied as were two Acticoat dressings. The patient tolerated the procedure well. Blood loss was estimated at 25 mL in aggregate. Sponge, needle, and instrument counts were reported as correct x3. MD REA Mancia/KEITHL /[id number] cc: Evi Pozo MD Electronically Signed By: NASEEM GRIFFIN MD 09/18/22 1058 PATIENT NAME: DEVIKA CHAPMAN OPERATIVE REPORT DATE OF : 68 REPORT #: [id number] PHYSICIAN: NASEEM GRIFFIN MD PCP: EVI POZO MD REPORT IS CONFIDENTIAL AND NOT TO BE RELEASED WITHOUT AUTHORIZATION [facility] [address] [place] [address] [place], [place] [address] Signed Copies: ~ Electronically Signed By: NASEEM GRIFFIN MD 09/18/22 1058 PATIENT NAME: DEVIKA CHAPMAN OPERATIVE REPORT DATE OF : 68 REPORT #: [id number] PHYSICIAN: NASEEM GRIFFIN MD PCP: EVI POZO MD REPORT IS CONFIDENTIAL AND NOT TO BE RELEASED WITHOUT AUTHORIZATION
== END 2022-09-17 15:45 | disposition home or self-care (01) ==
LOC: DS 08:52 → MAM 10:00 → EDSTATUS 10:00 → DS 10:00
PROVIDERS: ATTEND Surgery
PROC: 0HBV0ZX Excision of Bilateral Breast, Open Approach, Diagnostic (ICD-10-PCS; principal; 2022-09-17 12:00)
DX: C50.412 Malignant neoplasm of upper-outer quadrant of left female breast (principal); I10 Essential (primary) hypertension; R92.0 Mammographic microcalcification found on diagnostic imaging of breast; Z90.49 Acquired absence of other specified parts of digestive tract
CPT/HCPCS: 38792; 76098; 78195; A9541; J0690; J1100; J1644; J2001; J2405; J2704; J3010; J7121; Q9968

== ENCOUNTER 2023-06-01 05:40 | Day surgery (SDC) | payer OTHER ==
[2023-05-26 08:23] VITALS: BP 97/71
[~2023-06-01] VITALS: Ht 172.7 cm; Wt 63.6 kg
[~2023-06-01 05:40] MED LIST changes: +ACETAMINOPHEN500 MG PO; +BAYER CHEWABLE81 MG PO; +DAILY MULTIVIT1 EAC3 PO; +EXEMESTANE25 MG PO; +FISH OIL + D31 EACH PO; +FLAXSEED1000 MG PO; +GENTAK5 ML; +IBUPROFEN600 MG PO; +MULTI VITAMIN1 EACH PO; +ONDANSETRON ODT8 MG PO; +OXYCODON-ACETA1 EAC2 PO
[2023-06-01 06:00] VITALS: BP 106/71
--- NOTE | 2023-06-01 07:31 | NUR ---
PT IN GOOD SPIRITS. EXERCISED MINISTRY OF PRESENCE PT TALKED OF GARDENING AND FAMILY. CONSENTED TO PRAYER. PRAYED FOR SUCCESSFUL PROCEDURE AND ONGOING BLESSING.
--- NOTE | 2023-06-01 08:59 | NUR ---
06/01/23 0859 Julianne Mercer 0853-PATIENT ARRIVED TO PACU ON 10L MASK ORAL AIRWAY IN PLACE NONAROUSABLE RN DOING JAW TILT TO MAINTAIN OPEN AIRWAY. DRESSING TO NOSE INTACT. SR. IVF INFUSING. 0855-PATIENT REACTIVE TO VERBAL STIMULI LIFTING HEAD OFF PILLOW ORAL AIRWAY REMOVED. ORIENTED TO PACU. HOB ELEVATED. PLACED ON 6L MASK RR EVEN 100%
[2023-06-01 09:28] VITALS: BP 117/65
--- NOTE | 2023-06-01 09:34 | NUR ---
0920: PT RETURNS TO UNIT VIA STRETCHER FROM PACU. AWAKE AND ALERT ON ARRIVAL. VSS, RESP EVEN AND UNLABORED. DENIES PAIN AND NAUSEA. ICE WATER AND CRACKERS PROVIDED. DRESSING WITH SMALL AMOUNT OF RED DRAINAGE. POC DISCUSSED AND PT AGREEABLE AT THIS TIME. MOTHER ATTENTIVE AT THE BEDSIDE. NO NEEDS, CALL LIGHT WITHIN REACH
[2023-06-01 10:29] VITALS: BP 124/76
--- NOTE | 2023-06-01 10:30 | NUR ---
IN PT ROOM FOR VS AND ASSESSMENT. NO NEW BLEEDING AT THIS TIME. PT REPORTS NO PAIN OR NAUSEA. VS TAKEN. PT SITS AT EDGE OF BED AND STANDS WITHOUT ANY REPORTS OF NAUSEA OR DIZZINESS. PT GETTING DRESSED AT THIS TIME W/MOTHER'S ASSISTANCE. PT ENCOURAGED TO NOT BEND OVER OR INCREASE HEAD PRESSURE. CALL LIGHT WITHIN REACH.
--- NOTE | 2023-06-01 10:55 | NUR ---
THIS RN IN ROOM FOR PT DISCHARGE EDUCATION, PT AND PT MOTHER REPORT NO QUESTIONS OR CONCERNS AT THIS TIME. IV DC'ED BY THIS RN. THIS RN ESCORTS PT OFF OF UNIT VIA WC TO PASSENGER SIDE OF VEHICLE. ALL BELONGINGS IN PT POSSESSION AT THIS TIME. PT REPORTS NO FURTHER NEEDS OR QUESTIONS AT THIS TIME.
--- NOTE | 2023-06-01 11:51 | OR ---
[facility] [address] [place], [place] [address] Signed DATE OF OPERATION: 06/01/2023 SURGEON: Otto Baldwin MD PREOPERATIVE DIAGNOSES: Nasal obstruction due to septal deformity and inferior turbinate hypertrophy. POSTOPERATIVE DIAGNOSIS: Nasal obstruction due to septal deformity and inferior turbinate hypertrophy. PROCEDURE: Septoplasty, cautery bilateral inferior turbinates. ANESTHESIA: General LMA, FLORENTINO Barragan. 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 This has been unresponsive to appropriate medications. She is taken to the operating room for the above-mentioned procedures. OPERATIVE PROCEDURE AND FINDINGS: After informed consent, the patient was taken to the operating room, placed in the supine position where general LMA anesthesia was induced. Patient and procedure were verified. Patient received preoperative intranasal oxymetazoline and intravenous Ancef. Headlight speculum exam of the nasal cavity showed a significant septal deformity, left side spur shelf obstructive. The septal mucosa was injected with 1% lidocaine with epinephrine. A small spur on the right side was excised with Misti. The left side of the septum mucosa was elevated off the deviated septal bone and cartilage with a [place]ee elevator and the deviation was corrected with a Misti. This airway was improved after this procedure. The bleeding was minimal. Inferior turbinates were then cauterized starting on the right side, long handle needle point cautery. Multiple trans mucosal passes on the inferior turbinate on the medial and inferior surface starting anteriorly extending all the way back posteriorly. Excellent shrinkage in the inferior turbinate was obtained in this manner. Same procedure on the left inferior turbinate. Hemostasis was verified. Packing was then placed. Trimmed Merocel equal amount one piece each side coated with Neosporin tied anteriorly over a pad. The pharynx was then suctioned clear of blood and secretions. The patient was awakened, extubated, transported to recovery room in good condition. No Electronically Signed By: OTTO BALDWIN MD 06/01/23 1151 PATIENT NAME: MYA CHAPMAN OPERATIVE REPORT DATE OF : 68 REPORT #: [id number] PHYSICIAN: OTTO BALDWIN MD PCP: JESSICA LU MD REPORT IS CONFIDENTIAL AND NOT TO BE RELEASED WITHOUT AUTHORIZATION [address] [address] Signed complications. BLOOD LOSS: Minimal. SPECIMEN: None. DRAINS: None. PACKING: One piece of Merocel each nostril. Otto Baldwin MD /MODL /[id number] Copies: ~ Electronically Signed By: OTTO BALDWIN MD 06/01/23 115 PATIENT NAME: MYA CHAPMAN OPERATIVE REPORT DATE OF : 68 REPORT #: [id number] PHYSICIAN: OTTO BALDWIN MD PCP: JESSICA LU MD REPORT IS CONFIDENTIAL AND NOT TO BE RELEASED WITHOUT AUTHORIZATION
== END 2023-06-01 10:55 | disposition home or self-care (01) ==
LOC: OPS 05:40 → DS 05:40 → OPS 07:30 → DS 07:30 → OPS 09:00
PROVIDERS: ATTEND Otolaryngology
PROC: 09BM0ZZ Excision of Nasal Septum, Open Approach (ICD-10-PCS; principal; 2023-06-01 07:30)
DX: J34.2 Deviated nasal septum (principal); J34.3 Hypertrophy of nasal turbinates
CPT/HCPCS: 00160; A9270; J0690; J1100; J1790; J1885; J2250; J2405; J2704; J2765; J3010; J7121

== ENCOUNTER 2024-05-25 16:29 | Inpatient (IN) | payer OTHER ==
[~2024-05-25] VITALS: Ht 170.2 cm; Wt 55.0 kg
[~2024-05-25 16:29] MED LIST changes: +ATENOLOL25 MG PO; +CEPHALEXIN500 MG PO
[2024-05-25] MEDS ORDERED: ondansetron HCL 4 MG/2 ML VIAL IV ONE (17:00)
[2024-05-25] MEDS ORDERED: PANTOPRAZOLE SODIUM 40 MG/10 ML VIAL IV ONE (17:00)
[2024-05-25] MEDS ORDERED: SODIUM CHLORIDE 0.9% 1,000 ML IV ONE (17:00)
[2024-05-25 17:05] LABS: BASOPHILS 0.5 % (0-2); EOSINOPHILS 0.8 % (0-6); HEMATOCRIT 42.2 % (35.0-50.0); HEMOGLOBIN 14.4 g/dL (12.0-18.0); LYMPHOCYTES 26.9 % (24-44); MCH 29.7 (27-36); MCHC 34.1 g/dl (30-36); MCV 87.1 fl (81-99); MONOCYTES 6.7 % (0-12); NEUTROPHILS 65.1 % (39-80); PLATELET COUNT 230 K/uL (140-440); RBC 4.85 M/ul (4.3-5.7)
[2024-05-25 17:05] LABS: BILIRUBIN, URINE POSITIVE (negative); BLOOD/HGB, URINE LARGE (Negative); KETONE, URINE NEGATIVE (Negative); LEUK ESTERASE, URINE SMALL (negative); NITRITE, URINE NEGATIVE (negative)
[2024-05-25 17:13] LABS: RED BLOOD CELLS, URINE >50 /hpf (0-5)
[2024-05-25 17:14] LABS: BACTERIA, URINE 1+ /hpf (negative); CASTS, URINE NONE SEEN \\lpf; CRYSTALS, URINE NONE SEEN (0-1+)
[2024-05-25 17:15] LABS: COLLECTION TYPE, URINE CLEAN CATCH; EPITHELIAL CELLS, URINE SQUAMOUS 1+ /lpf (0-1+); REFLEX CULTURE, URINE Yes (No)
[2024-05-25 17:16] LABS: WHITE BLOOD CELLS, URINE 41-50 /HPF (0-5)
[2024-05-25 17:23] LABS: ALBUMIN 4.2 g/dL (3.4-5.0); ALBUMIN/GLOBULIN RATIO 1.35 (1.1-2.4); ANION GAP 6.6 (7-21); BILIRUBIN, TOTAL 1.5 ng/dL (0.2-1.0); BUN/CREATININE RATIO 11.36 (6.0-28.6); CALCIUM 10.8 mg/dL (8.5-10.1); CREATININE, SERUM 1.76 mg/dL (0.55-1.02); MAGNESIUM 1.4 mg/dL (1.8-2.4); POTASSIUM 2.6 mmol/L (3.5-5.1); PROTEIN, TOTAL 7.3 g/dL (6.4-8.2)
[2024-05-25] MEDS ORDERED: MAGNESIUM SULFATE 2 GM/50 ML BAG IV ONE (18:00)
[2024-05-25] MEDS ORDERED: POTASSIUM CHLORIDE 10 MEQ/100 ML BAG IV ONE (18:00)
[2024-05-25] MEDS ORDERED: MAGNESIUM SULFATE 50 ML IV ONE (18:10)
[2024-05-25] MEDS ORDERED: ondansetron HCL 4 MG/2 ML VIAL IV PRN (18:45)
[2024-05-25] MEDS ORDERED: ACETAMINOPHEN 500 MG TAB PO PRN (18:45)
[2024-05-25] MEDS ORDERED: DEXTROSE 5% - NACL 0.45% 1,000 ML IV SCH (18:45)
[2024-05-25] MEDS ORDERED: PROCHLORPERAZINE EDISYLATE 10 MG/2 ML VIAL IV PRN (18:45)
[2024-05-25] MEDS ORDERED: POTASSIUM CHLORIDE 40 MEQ,LIDOCAINE HCL 1% 40 MG in DEXTROSE 5% 250 ML IV ONE (19:00)
[2024-05-25] MEDS ORDERED: POTASSIUM CHLORIDE 10 MEQ TABCR PO ONE (19:00)
--- NOTE | 2024-05-25 19:00 | NUR ---
REPORT RECEIVED FROM BLANCA GONZALEZ. pt BROUGHT TO THE MED/SURG FLOOR VIA STRETCHER pt ABLE TO WALK FROM THE STRETCHER TO THE BED. pt INDEPENDENT IN THE ROOM. IV ASSESSED, WNL. SCHEDULED MEDICATIONS ADMINISTERED. IV POTASIUM ADMINISTERING PER ORDER. pt DENIES ANY OTHER NEEDS AT THIS TIME. BROTH PROVIDED. BOARD UPDATED. CALL LIGHT WITHIN REACH.
[2024-05-25 19:26] VITALS: BP 122/85
[2024-05-25 20:05] VITALS: BP 122/85
--- NOTE | 2024-05-25 20:10 | NUR ---
ASSESSMENT AND VITAL SIGNS. ADDMISSION DONE. BROTH PROVIDED. pt DENIES ANY OTHER NEEDS AT THIS TIME. CALL LIGHT WITHIN REACH. pt ALERT AND ORIENTED.
--- NOTE | 2024-05-25 20:11 | NUR ---
REMAINING ADMISSION COMPLETED, pt AWAKE AND RESTING IN BED. SON TAMI IN ROOM. pt ORIENTED TO ROOM AND CALL LIGHT AND PERSONAL BELONGINGS IN REACH. FRESH ICE WATER AND CHICKEN BROTH ALSO PROVIDED PER pt REQUEST, PRIMARY RN DENISE AWARE AND UPDATED.
[2024-05-25] MEDS ORDERED: POTASSIUM CHLORIDE 10 MEQ/100 ML BAG IV SCH (20:30)
[2024-05-25] MEDS ORDERED: MELATONIN 3 MG TAB PO PRN (21:00)
--- NOTE | 2024-05-25 21:31 | NUR ---
dr joseph at rn station and discussed potassium redraw policy and asked md if he wanted a potassium redraw part way through potassium replacement-pt to receive 40meq total po and 50meq piggyback total iv. per dr joseph, okay to wait and collect potassium redraw with am labs. primary rn aware.
--- NOTE | 2024-05-25 22:00 | NUR ---
2 OUT OF 4 BAG OF K+ ADMINISTERING. pt DENIES ANY OTHER NEEDS AT THIS TIME. CALL LIGHT WITHIN REACH.
[2024-05-25] MEDS ORDERED: ISOSORBIDE DINITRATE 10 MG TAB PO SCH (22:24)
--- NOTE | 2024-05-25 23:00 | NUR ---
3 OUT OF 4 BAGS OF K+ ADMINISTERING. SCHEDULED MADICAITON ADMINISTERED. pt DENIES ANY OTHER NEEDS AT THIS TIME. CALL LIGHT WITHIN REACH.
[2024-05-26] VITALS (11 sets, daily range): BP systolic 73–96; BP diastolic 47–61
--- NOTE | 2024-05-26 00:07 | NUR ---
IV K+ ADMINISTERING PER ORDER, SEE MAR. pt RESTING IN THE BED WITH EYES CLOSED. RR EVEN AND UNLABORED. CALL LIGHT WITHIN REACH.
--- NOTE | 2024-05-26 02:00 | NUR ---
IN RM TO DO VITAL SIGNS WITH METALS ANALYST. pt BP 78/46, BP RECHECKED WITH A RESSULTS OF 82/48. pt GOT UP TO RESTROOM AND BACK TO BED. BP RECHECKED WITH A RESULTS OF 96/56. pt DENIES ANY OTHER NEEDS AT THIS TIME. CALL LIGHT WITHIN REACH.
--- NOTE | 2024-05-26 04:30 | NUR ---
pt RESTING IN THE BED WITH EYES CLOSED. RR EVEN AND UNLABORED. CALL LIGHT WITHIN REACH.
[2024-05-26 05:34] LABS: BASOPHILS 0.6 % (0-2); EOSINOPHILS 2.1 % (0-6); HEMOGLOBIN 11.2 g/dL (12.0-18.0); LYMPHOCYTES 32.4 % (24-44); MCH 29.9 (27-36); MCHC 34.1 g/dl (30-36); MCV 87.8 fl (81-99); MONOCYTES 7.2 % (0-12); NEUTROPHILS 57.7 % (39-80); PLATELET COUNT 167 K/uL (140-440); RBC 3.76 M/ul (4.3-5.7)
[2024-05-26 05:43] LABS: ANION GAP 5.4 (7-21); BUN/CREATININE RATIO 11.56 (6.0-28.6); CALCIUM 8.7 mg/dL (8.5-10.1); CREATININE, SERUM 1.47 mg/dL (0.55-1.02); MAGNESIUM 1.8 mg/dL (1.8-2.4); POTASSIUM 3.4 mmol/L (3.5-5.1)
--- NOTE | 2024-05-26 05:55 | NUR ---
MD GARCIA CALLED DUE TO pts BP RESULTS OF 78/50 MANUALLY. PLACED ORDER FOR 1L BOLUS OF LR. pt WAS UNSYMPTOMATIC. ORDER VERIFIED WITH REPEAT BACK METHOD.
--- NOTE | 2024-05-26 06:15 | NUR ---
SENIOR STATISTICAL PROGRAMMER OBTAINED VITALS AND INTAKE. NO NEW OUTPUT AT THIS TIME. PT B/P IS 73/47. RN NOTIFED. PT STATES NO NEEDS FROM SENIOR STATISTICAL PROGRAMMER. CALL LIGHT WITHIN REACH.
[2024-05-26] MEDS ORDERED: LACTATED RINGER'S 1,000 ML IV ONE (07:00)
--- NOTE | 2024-05-26 07:10 | NUR ---
REPORT RECEIVED FROM FIELD SERVICE TECHNICIAN RN DENISE. PATIENT IS LYING ON THEIR LEFT SIDE WITH EYES CLOSED AND RESPIRATIONS ARE EVEN AND UNLABORED. CALL LIGHT AND PERSONAL BELONGINGS ARE WITHIN REACH.
--- NOTE | 2024-05-26 08:10 | NUR ---
PATIENT IS SITTING UPRIGHT IN THE BED AT THIS TIME. PATIENT GIVEN AN APPLESAUCE DUE TO THE PATIENT ESOPHAGEAL DISMOBILITY. PATIENT REQUESTING YOGURT WELL. RN CALLED THE KITCHEN AND ASKED FOR SOME TO BE BROUGHT UP. PATIENT STATED NO FURTHER NEEDS AT THIS TIME. CALL LIGHT AND PERSONAL BELONGINGS ARE WITHIN REACH.
[2024-05-26] MEDS ORDERED: POTASSIUM CHLORIDE 40 MEQ,LIDOCAINE HCL 1% 40 MG in DEXTROSE 5% 250 ML IV ONE (08:30)
[2024-05-26] MEDS ORDERED: POTASSIUM CHLORIDE 10 MEQ TABCR PO ONE (08:30)
[2024-05-26] MEDS ORDERED: POTASSIUM CHLORIDE 10 MEQ TABCR ONE (08:57)
--- NOTE | 2024-05-26 08:58 | NUR ---
PATIENT IN BED AT THIS TIME. CALL LIGHT WITHIN REACH, NO FURTHER NEEDS AT THIS TIME.
[2024-05-26] MEDS ORDERED: DICYCLOMINE HCL 10 MG CAP PO SCH (09:00)
[2024-05-26] MEDS ORDERED: CEFTRIAXONE/SODIUM CHLORIDE 1 GM/100 ML PIGGYBACK IV SCH (09:00)
[2024-05-26] MEDS ORDERED: PANTOPRAZOLE SODIUM 40 MG/10 ML VIAL IV SCH (09:00)
[2024-05-26] MEDS ORDERED: SUCRALFATE1 GM/10 ML PO (09:04)
--- NOTE | 2024-05-26 09:10 | NUR ---
VITALS SIGNS TAKEN AND DOCUMENTED IN THE CHART. 0900 MEDICATIONS ADMINISTERED PER THE EMAR. PRN TYLENOL ADMINISTERED FOR A HEADACHE. PILLS CRUSHED AND ATE WITH CHOCOLATE PUDDING. PATIENT TOLERATED WELL. PATIENT WITH THE TV ON IN THE ROOM. PATIENT STATED NO FURTHER NEEDS AT THIS TIME. CALL LIGHT AND PERSONAL BELONGINGS ARE WITHIN REACH.
[2024-05-26] MEDS ORDERED: PROLIA60 MG/1 ML SUB-Q (10:03)
--- NOTE | 2024-05-26 10:04 | NUR ---
MED REC COMPLETE
--- NOTE | 2024-05-26 10:55 | NUR ---
PATIENT IS SITTING UPRIGHT IN BED AND WATCHING TV UPON RN ENTERING THE ROOM. FULL ASSESSMENT COMPLETE AND DOCUMENTED IN THE CHART. PATIENT IS ALERT AND ORIENTED TIMES FOUR AND INDEPENDENT IN THE ROOM. PATIENT IS ON ROOM AIR AND LUNG SOUNDS ARE CLEAR BILATERALLY IN ALL LUNG AGOSTO BILATERALLY. PATIENT IS ON TELEMETRY NUMBER 2. CARDIAC WITH NORMAL S1 AND S2 ON AUSCULTATION. RADIAL PULSES ARE STRONG BILATERALLY. SENSATION INTACT WITH NO COMPLAINTS OF NUMBNESS AND TINGLING. SKIN INTACT. PATIENT WITH NO COMPLAINTS OF PAIN OR NAUSEA. BOWEL TONES ARE ACTIVE IN ALL FOUR QUADRANTS. PATIENT IS ON A REGULAR DIET WITH SOFT AND BIT SIZED TEXTURE. PATIENT TAKES HER PILLS CRUSHED IN CHOCOLATE PUDDING. PATIENT HAD EMESIS AND STATED "THREW UP ALL THE CHOCOLATE PUDDING". MD NOTIFIED AT THIS TIME AND IS PUTTING IN ORDERS. IV SITE IN THE LAC WITH D51/2NS INFUSING AT 125 ML/HR. IV POTASSIUM CHLORIDE IS ALSO INFUSING. IV DRESSING IS CLEAN, DRY, AND INTACT. PATIENT STATED NO FURTHER NEEDS AT THIS TIME. CALL LIGHT AND PERSONAL BELONGINGS ARE WITHIN REACH.
--- NOTE | 2024-05-26 11:03 | NUR ---
SPOKE TO PATIENT ABOUT THE DISCHARGE PLAN. 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 PATIENT DOES NOT USE DME. PATIENT CAN AFFORD FOOD AND HOUSING. THE PATIENT HAS FRIENDS AND FAMILY THAT CAN HELP NEEDED. PATIENT DOES NOT HAVE ANY CASE MANAGEMENTS NEEDS AT THIS TIME. THE DC EYE DROPPER ASSEMBLER WILL CONTINUE TO MONITOR FOR ANY DISCHARGE NEEDS.
--- NOTE | 2024-05-26 11:43 | NUR ---
VISITED DURING SPIRITUAL ROUNDS. PT NEEDING NURSING ATTENTION. LAND MOBILE RADIO TECHNICIAN PROVIDED SUPPORTIVE PRESENCE, ADVOCATED FOR PT, PROVIDED PRAYER. PT EXPRESSED GRATITUDE.
--- NOTE | 2024-05-26 11:50 | NUR ---
PATIENT LUNCH TRAY CANCELLED PER PATIENT REQUEST. PATIENT GIVEN CHICKEN BROTH. PATIENT WITH NO COMPLAINTS OF NAUSEA AT THIS TIME. PATIENT NO FURTHER NEEDS, CALL LIGHT AND PERSONAL BELONGINGS ARE WITHIN REACH.
[2024-05-26] MEDS ORDERED: PHARMACY RENAL DOSE ADJUSTMENT 1 DOSE MISC PO SCH (12:00)
[2024-05-26] MEDS ORDERED: METOCLOPRAMIDE HCL 10 MG/2 ML SDV IV SCH (12:00)
--- NOTE | 2024-05-26 12:00 | EKG ---
[facility] [address] [facility] [place] [address] Signed Normal sinus rhythm Low voltage QRS Borderline ECG When compared with ECG of 25-JAN-2024 08:36, QT has lengthened Confirmed by Phil Garcia MD ([id number]) on 05/26/2024 12:00:30 PM Electronically Signed By: PHIL GARCIA DO 05/26/24 1200 PATIENT NAME: DEVIKA CHAPMAN ADDI Electrocardiogram DATE OF : 68 PHYSICIAN: PHIL GARCIA DO REPORT #: [id number] REPORT IS CONFIDENTIAL AND NOT TO BE RELEASED WITHOUT AUTHORIZATION
--- NOTE | 2024-05-26 12:53 | NUR ---
PATIENT IS SITTING UPRIGHT IN BED. PATIENT STATES SHE THREW UP HER YOGURT ABOUT A HALF AN HOUR AGO. PATIENT IS INDEPENDENT IN THE ROOM AND ALSO HAD ONE UNMEASURE VOID. PATIENT WITH NO COMPLAINTS OF NAUSEA AT THIS TIME. NEW BAG OF MAINTENANCE FLUIDS IS HANGING. PATIENT STATED NO FURTHER NEEDS AT THIS TIME. CALL LIGHT AND PERSONAL BELONGINGS ARE WITHIN REACH.
--- NOTE | 2024-05-26 13:45 | NUR ---
PT ASKED FOR PUDDING AND I GAVE HER FRESH WATER. AND BEEF BROTH WITH EXTRA SALT PACKETS ON THE SIDE. PT DIDNT NEED ANYTHING ELSE CALL LIGHT IS WITHIN REACH.
--- NOTE | 2024-05-26 15:47 | NUR ---
PATIENT IS SITTING UPRIGHT IN BED AND WATCHING TV. PATIENT PERSONAL BELONGINGS ARE WITHIN REACH. PATIENT WITH NO COMPLAINTS OF PAIN OR NAUSEA AT THIS TIME. CARDIAC WITH NORMAL S1 AND S2 ON AUSCULTATION. PATIENT IS ON TELEMETRY NUMBER 2 AND HIS HR IS 52. IV SITE FLUSHED WITH 10 ML NORMAL SALINE AND IS SALINE LOCKED. IV DRESSING IS CLEAN, DRY, AND INTACT. IV MAINTENANCE FLUIDS HAVE BEEN DISCONTINUED. BOWEL MOVEMENTS ARE ACTIVE IN ALL FOUR QUADRANTS. PATIENT IS ON A CLEAR LIQUID DIET. PATIENT STATED NO FURTHER NEEDS AT THIS TIME. CALL LIGHT AND PERSONAL BELONGINGS ARE WITHIN REACH.
--- NOTE | 2024-05-26 17:22 | NUR ---
1600 MEDICATION ADMINISTERED PER THE EMAR. IV FLUSHED WITH 10 ML NORMAL SALINE. IV DRESSING IS CLEAN, DRY, AND INTACT. VITAL SIGNS TAKEN AND DOCUMENTED IN THE CHART. IV PUMP CLEARED OF INTAKE VALUES. PATIENT WITH NO COMPLAINTS OF PAIN OR NAUSEA THIS TIME. PATIENT STATED NO FURTHER NEEDS AT THIS TIME. CALL LIGHT AND PERSONAL BELONGINGS ARE WITHIN REACH.
--- NOTE | 2024-05-26 17:29 | NUR ---
MD NOTIFIED OF PATIENT BLOOD PRESSURE. PUTTING IN ORDERS NOW.
[2024-05-26] MEDS ORDERED: SODIUM CHLORIDE 0.9% 1,000 ML IV ONE (17:45)
--- NOTE | 2024-05-26 18:05 | NUR ---
IV NS BOLUS STARTED. IV IN THE AC STARTED LEAKING. IV DISCONTINUED WITH THE CATHETER TIP INTACT. 18 GAUGE IN THE LEFT FOREARM STARTED BY ELIA KERN. PATIENT TOLERATED WELL. IV FLUSHED WELL. IV BLOUS IS INFUSING AT 500 ML/HR. PATIENT STATED NO FURTHER NEEDS AT THIS TIME. CALL LIGHT AND PERSONAL BELONGINGS ARE WITHIN REACH.
--- NOTE | 2024-05-26 19:37 | NUR ---
RECEIVED REPORT FROM DAY SHIFT RN. PATIENT IS RESTING IN BED WATCHING TV. PATIENT DENIES ANY NEEDS. CALL LIGHT IN REACH.
--- NOTE | 2024-05-26 20:36 | NUR ---
PATIENTS VITALS TAKEN AND RECORDED. PATIENTS BOLUS COMPLETED. INTAKE AND OUTPUT RECORDED. PATIENT IS NOTED TO BE HYPOTENSIVE. MD AWARE NO NEW ORDERS AT THIS TIME. PATIENT DENIES BEING LIGHT HEADED OR DIZZY. PATIENT DENIES ANY PAIN. IV FLUSHED AND SL PER ORDER. PATIENTS ASSESMENT COMPLETED. PATIENT IS ON TELE #2, HR 67. PATIENTS PM MEDS GIVEN PER ORDER. PATIENT DENIES ANY FURTHER NEEDS. CALL LIGHT AND BELONGINGS ARE WITHIN REACH. SON AT BEDSIDE.
--- NOTE | 2024-05-26 22:20 | NUR ---
PATIENT IS RESTING IN BED WITH EYES CLSOED, HR ON TELE 55. CALL LIGHT IN REACH. NAD NOTED.
[2024-05-27] VITALS (10 sets, daily range): BP systolic 85–103; BP diastolic 57–62
--- NOTE | 2024-05-27 00:29 | NUR ---
PATIENT IS RESTING IN BED WITH EYES CLOSED, RR 15. CALL LIGHT IN REACH.K
--- NOTE | 2024-05-27 02:10 | NUR ---
PATIENTS VITALS TAKEN AND RECORDED. PATIENT NOTED TO BE JOE ON MONITOR AT 37 AND 56 ON MONITOR IN ROOM. PATIENTS TELE STICKERS REPLACED. PATIENT UP TO BR AND ABLE TO VOID. PATIENT DENIES BEING LIGHT HEADED OR DIZZY WHEN UP. PATIENT BACK IN BED RESTING. PATIENT DENIES ANY NEEDS. CALL LIGHT IN REACH.
--- NOTE | 2024-05-27 04:00 | NUR ---
PATIENT IS RESTING IN BED WITH EYES CLOSED, RR 16. CALL LIGHT IN REACH.
--- NOTE | 2024-05-27 05:20 | NUR ---
LAB IN ROOM. PATIENTS VITALS TAKEN AND RECORDED. INTAKE AND OUTPUT RECORDED. PATIENT DENIES ANY NAUSEA. PATIENT DENIES ANY NEEDS. CALL LIGHT IN REACH.
[2024-05-27 05:43] LABS: BASOPHILS 0.4 % (0-2); EOSINOPHILS 1.9 % (0-6); HEMATOCRIT 36.2 % (35.0-50.0); HEMOGLOBIN 12.2 g/dL (12.0-18.0); LYMPHOCYTES 34.1 % (24-44); MCHC 33.5 g/dl (30-36); MCV 89.5 fl (81-99); MONOCYTES 5.9 % (0-12); NEUTROPHILS 57.7 % (39-80); PLATELET COUNT 167 K/uL (140-440); RBC 4.05 M/ul (4.3-5.7); RDW 14.3 (10.5-15.0)
[2024-05-27 05:56] LABS: ANION GAP 7.8 (7-21); BUN/CREATININE RATIO 9.09 (6.0-28.6); CREATININE, SERUM 1.1 mg/dL (0.55-1.02); MAGNESIUM 1.7 mg/dL (1.8-2.4); POTASSIUM 3.8 mmol/L (3.5-5.1)
--- NOTE | 2024-05-27 07:03 | NUR ---
PATIENT IS LYING IN BED WITH EYES OPEN AND RESPIRATIONS ARE EVEN AND UNLABORED. REPORT RECEIVED FROM SPA RECEPTIONIST RN BRITTANIE. PATIENT STATED NO NEEDS AT THIS TIME, CALL LIGHT AND PERSONAL BELONGINGS ARE WITHIN REACH.
--- NOTE | 2024-05-27 08:33 | NUR ---
PATIENT IN BED AT THIS TIME. CALL LIGHT WITHIN REACH, NO FURTHER NEEDS AT THIS TIME.
[2024-05-27] MEDS ORDERED: POTASSIUM PHOSPHATE 20 MMOL in DEXTROSE 5% 500 ML IV ONE (09:00)
--- NOTE | 2024-05-27 09:07 | NUR ---
0900 MEDICATIONS ADMINISTERED PER THE EMAR. FULL ASSESSMENT COMPLETE AND DOCUMENTED IN THE CHART. PATIENT IS ALERT AND ORIENTED TIMES FOUR. PATIENT IS ON ROOM AIR AND LUNG SOUNDS ARE CLEAR BILATERALLY. PATIENT IS ON TELEMETRY NUMBER 2. HR IS 63. CARDIAC WITH NORMAL S1 AND S2 ON AUSCULTATION. RADIAL AND PEDAL PULSES ARE STRONG BILATERALLY. SENSATION INTACT WITH NO COMPLAINTS OF NUMBNESS AND TINGLING. CAPILLARY REFILL IN THE UPPER AND LOWER EXTREMITIES IS LESS THAN 3 SECONDS BILATERALLY. BOWEL TONES ARE ACTIVE IN ALL FOUR QUADRANTS. LAST BM WAS 05/26/24. PATIENT IS ON ALL FULL LIQUID DIET. PATIENT WITH NO COMPLAINTS OF NAUSEA OR PAIN. PATIENT IS INDEPENDENT IN THE ROOM. SKIN INTACT. IV IN THE LEFT FOREARM FLUSHED WITH 10 ML NORMAL SALINE. IV DRESSING IS CLEAN, DRY, AND INTACT. IV ROCEPHIN IS INFUSING AT THIS TIME. PATIENT STATED NO FURTHER NEEDS. CALL LIGHT AND PERSONAL BELONGINGS ARE WITHIN REACH.
--- NOTE | 2024-05-27 10:22 | NUR ---
PATIENT IS SITTING UPRIGHT IN BED AND ON THEIR PHONE. RN ASKED HOW THE IV SITE FEELS WITH THE POTASSIUM PHOSPHATE INFUSION. PATIENT STATED HAVING A LITTLE BIT OF STINGING BUT DOES NOT WANT ANYTHING TO HELP AT THIS TIME. PATIENT STATED NO FURTHER NEEDS, CALL LIGHT AND PERSONAL BELONGINGS ARE WITHIN REACH.
[2024-05-27] MEDS ORDERED: METOCLOPRAMIDE HCL 10 MG TAB PO SCH (11:00)
[2024-05-27] MEDS ORDERED: metOLazone 5 MG TAB PO SCH (11:00)
--- NOTE | 2024-05-27 11:12 | NUR ---
PATIENT IN BED AT THIS TIME. PATIENT REGISTRATION CLERK CHARTED PATIENTS VITALS AND I&O'S. CALL LIGHT WITHIN REACH, NO FURTHER NEEDS AT THIS TIME.
[2024-05-27] MEDS ORDERED: METOCLOPRAMIDE HCL 5 MG TAB PO SCH (11:30)
--- NOTE | 2024-05-27 12:40 | NUR ---
PATIENT IS LYING IN BED AND LOOKING ON THEIR PHONE. PATIENT STATED NO FURTHER NEEDS AT THIS TIME, CALL LIGHT AND PERSONAL BELONGINGS ARE WITHIN REACH.
--- NOTE | 2024-05-27 13:37 | NUR ---
PATIENT IS SITTING UPRIGHT IN BED AND WATCHING TV. PATIENT WITH NO COMPLAINTS OF PAIN AT THIS TIME. IV SITE WITH POTASSIUM PHOSPHATE INFUSING. PATIENT WITH NO COMPLAINTS OF BURNING OR STINGING AT THE IV SITE. IV DRESSING IS CLEAN, DRY, AND INTACT. PATIENT IS ON A FULL LIQUID DIET AND HER LAST BM WAS 05/26/24. BOWEL TONES ARE ACTIVE IN ALL FOUR QUADRANTS. PATIENT STATED NO FURTHER NEEDS AT THIS TIME. CALL LIGHT AND PERSONAL BELONGINGS ARE WITHIN REACH.
--- NOTE | 2024-05-27 14:05 | NUR ---
PATIENT IN BED AT THIS TIME. XEROX MACHINE ASSEMBLER CHARTED VITALS AND I&O'S. CALL LIGHT WITHIN REACH, NO FURTHER NEEDS AT THIS TIME.
[2024-05-27] MEDS ORDERED: MAGNESIUM SULFATE 2 GM/50 ML BAG IV ONE (14:15)
[2024-05-27] MEDS ORDERED: Calcium Gluconate in NS 1,000 MG/50 ML BAG IV ONE (14:15)
--- NOTE | 2024-05-27 16:51 | NUR ---
PATIENT IS SITTING UPRIGHT IN BED AND TALKING ON THE PHONE. PATIENT STATED NO NEEDS AT THIS TIME, CALL LIGHT AND PERSONAL BELONGINGS ARE WITHIN REACH.
[2024-05-27 17:03] LABS: IMMUNOGLOBULIN E 8 kU/L (<=214)
--- NOTE | 2024-05-27 19:23 | NUR ---
RECEIVED REPORT FROM DAY SHIFT RN. PATIENT IS RESTING IN BED WATCHINGT TV. PATIENT DENIES ANY PAIN OR NAUSEA. NO NEEDS NOTED. CALL LIGHT IN REACH.
--- NOTE | 2024-05-27 20:53 | NUR ---
PATIENTS VITALS TAKEN AND RECORDED. INTAKE AND OUTPUT RECORDED. PATIENT DENIES ANY PAIN OR NAUSEA. PATIENT ASSESMENT COMPLETED. PATIENTS PM MEDS GIVEN PER ORDER. PATIENTS IV FLUSHED AND SL PER ORDER. PATIENT PROVIDED FRESH ICE WATER. PATIENT DENIES ANY NEEDS. CALL LIGHT AND BELONGINGS ARE WITHIN REACH.
--- NOTE | 2024-05-27 22:40 | NUR ---
PATIENT IS RESTING IN BED WITH EYES CLSOED, RR 15. CALL LIGHT IN REACH.
[2024-05-28] VITALS (9 sets, daily range): BP systolic 98–113; BP diastolic 67–79
--- NOTE | 2024-05-28 | NUR ---
PATIENT IS RESTING IN BED. PATIENT AWAKENS WHEN DOOR IS OPENED. PATIENT DENIES ANY PAIN OR NAUSEA. PATIENT DENIES ANY NEEDS. CALL LIGHT IN REACH.
--- NOTE | 2024-05-28 02:12 | NUR ---
PATIENT IS RESTING IN BED WITH EYES CLOSED, RR 15. CALL LIGHT IN REACH.
--- NOTE | 2024-05-28 04:10 | NUR ---
PATIENT IS RESTING IN BED WITH EYES CLOSED, RR 15. CALL LIGHT IN REACH.
--- NOTE | 2024-05-28 05:17 | NUR ---
LAB IN ROOM. PATIENTS VITALS TAKEN AND RECORDED. INTAKE AND OUTPUT RECORDED. PATIENT DENIES ANY PAIN OR NAUSEA. PATIENT DENIES ANY FURTHER NEEDS. CALL LIGHT IN REACH.
[2024-05-28 05:41] LABS: ANION GAP 9.4 (7-21); BUN/CREATININE RATIO 8.42 (6.0-28.6); CALCIUM 8.1 mg/dL (8.5-10.1); CREATININE, SERUM 0.95 mg/dL (0.55-1.02); MAGNESIUM 1.7 mg/dL (1.8-2.4); PHOSPHORUS, INORGANIC 1.7 mg/dL (2.5-4.9); POTASSIUM 3.4 mmol/L (3.5-5.1)
--- NOTE | 2024-05-28 06:55 | NUR ---
PATIENT IS RESTING IN BED. PATIENT DENIES ANY PAIN OR NAUSEA. PATIENT DENIES ANY NEEDS. CALL LIGHT IN REACH.
[2024-05-28] MEDS ORDERED: CALCIUM GLUCONATE 1,000 MG/10 ML VIAL IV ONE ×2 (07:00→23:15)
[2024-05-28] MEDS ORDERED: POTASSIUM PHOSPHATE 30 MMOL in DEXTROSE 5% 500 ML IV ONE ×2 (07:00→22:15)
[2024-05-28] MEDS ORDERED: MAGNESIUM SULFATE 2 GM/50 ML BAG IV SCH (07:00)
[2024-05-28] MEDS ORDERED: POTASSIUM CHLORIDE 10 MEQ/100 ML BAG IV SCH (07:00)
--- NOTE | 2024-05-28 07:15 | NUR ---
REPORT RECEIVED FROM PATTERN DRAFTER RN BRITTANIE. IS ROUNDING WITH THE PATIENT AT THIS TIME. CALL LIGHT AND PERSONAL BELONGINGS ARE WITHIN REACH.
[2024-05-28] MEDS ORDERED: ENOXAPARIN SODIUM 40 MG/0.4 ML SYR SUB-Q SCH (09:00)
[2024-05-28] MEDS ORDERED: Calcium Gluconate in NS 1,000 MG/50 ML BAG IV SCH (10:00)
--- NOTE | 2024-05-28 10:15 | NUR ---
FULL ASSESSMENT COMPLETE AND DOCUMENTED IN THE CHART. PATIENT IS ALERT AND ORIENTED TIMES FOUR. PATIENT IS LYING IN BED. PATIENT WITH NO COMPLAINTS OF PAIN, NAUSEA, OR EMESIS. PATIENT IS ON ROOM AIR AND LUNG SOUNDS ARE CLEAR BILATERALLY. CARDIAC WITH NORMAL S1 AND S2 ON AUSCULTATION. RADIAL PULSES ARE STRONG BILATERALLY. SENSATION INTACT WITH NO COMPLAINTS OF NUMBNESS AND TINGLING. PATIENT IS ON A REGULAR DIET AND BOWEL TONES ARE ACTIVE IN ALL FOUR QUADRANTS. LAST BM WAS 05/26/24. PATIENT IV SITE INFILTRATED. NEW IV PLACE IN THE UPPER FOREARM. ROCEPHIN INFUSION IS RUNNING AT THIS TIME. SKIN INTACT. ELECTROLYTES TO GET REPLACED. PATIENT VITAL SIGNS TAKEN BY LISA HERNANDEZ. MEWS COMPLETE. PATIENT STATED NO FURTHER NEEDS AT THIS TIME. CALL LIGHT AND PERSONAL BELONGINGS ARE WITHIN REACH.
--- NOTE | 2024-05-28 11:58 | NUR ---
MAGNESIUM SULFATE INFUSION AND FIRST BAG OF CALCIUM GLUCONATE COMPLETE. SECOND BAG OF CALCIUM GLUCONATE IS INFUSING AT THIS TIME. PATIENT IS SITTIN GUPRIGHT IN BED AND WATCHING TV WHILE LOOKING ON THEIR PHONE. PATIENT STATED NO FURTHER NEEDS AT THIS TIME, CALL LIGHT AND PERSONAL BELONGINGS ARE WITHIN REACH.
--- NOTE | 2024-05-28 12:37 | NUR ---
RN TRIED TO INSERT ANOTHER IV IN THE RIGHT ARM. 1 ATTEMPT. CHARGE NURSE RN NOTIFIED LISA VILLARREAL TO TRY TO GET ANOTHER IV SITE. CHERELLE IS IN THE ROOM AT THIS TIME. PPHILIP STATED NO NEEDS OR HELP AT THIS TIME. CALL LIGHT AND PERSONAL BELONGINGS ARE WITHIN REACH.
--- NOTE | 2024-05-28 13:22 | NUR ---
PATIENT IS SITTING UPRIGHT IN BED AND ON THEIR PHONE. CALCIUM GLUCONATE IS INFUSING AT 25 ML/HR AND POTASSIUM PHOSPHATE IS INFUSING AT 85 ML/HR. VITAL SIGNS AND INTAKE AND OUTPUT VALUES TAKEN AND DOCUMENTED IN THE CHART. LUNCH TRAY REMOVED AT THIS TIME. PATIENT STATED NO FURTHER NEEDS AT THIS TIME. CALL LIGHT AND PERSONAL BELONGINGS ARE WITHIN REACH.
--- NOTE | 2024-05-28 14:32 | NUR ---
PATIENT IS SITTING UPRIGHT IN BED AND ON THEIR PHONE. CALCIUM GLUCONATE INFUSION COMPLETE. IV IN THE RIGHT AC FLUSHED WITH 10 ML NORMAL SALINE AND IS SALINE LOCKED. IV DRESSING IS CLEAN, DRY, AND INTACT. IV IN THE LEFT FOREARM FLUSHED WITH 10 ML NORMAL SALINE. POTASSIUM PHOSPHATE IS INFUSING AT 85 ML/HR. IV DRESSING IS CLEAN, DRY, AND INTACT. PATIENT IS ON A REGULAR DIET AND BOWEL TONES ARE ACTIVE IN ALL FOUR QUADRANTS. PATIENT WITH LUNG SOUNDS CLEAR IN ALL LUNG AGOSTO BILATERALLY. PATIENT IS NOW AMBULATING IN THE HALLWAY INDEPENDENTLY. PATIENT STATED NO FURTHER NEEDS AT THIS TIME. CALL LIGHT AND PERSONAL BELONGINGS ARE WITHIN REACH.
--- NOTE | 2024-05-28 15:22 | NUR ---
PATIENT IS AMBULATING IN THE ROOM INDEPENDENTLY AND GETTING A NEW MAGAZINE. PATIENT WITH IV POTASSIUM PHOSPHATE INFUSING AT THIS TIME AND INFUSING AT 85 ML/HR. PATIENT STATED NO FURTHER NEEDS, CALL LIGHT AND PERSONAL BELONGINGS ARE WITHIN REACH.
--- NOTE | 2024-05-28 18:15 | NUR ---
PATIENT IS SITTING UPRIGHT IN THE CHAIR AND TALKING ON THE PHONE. DINNER TRAY REMOVED FROM THE PATIENTS ROOM AT THIS TIME. PATIENT STATED NO FURTHER NEEDS AT THIS TIME. CALL LIGHT AND PERSONAL BELONGINGS ARE WITHIN REACH.
--- NOTE | 2024-05-28 19:25 | NUR ---
RECEIVED REPORT FROM DAY SHIFT RN. PATIENT IS RESTING IN BED. PATIENT DENIES ANY NEEDS. CALL LIGHT IN REACH.
[2024-05-28 21:14] LABS: ANION GAP 12.5 (7-21); BUN/CREATININE RATIO 8.33 (6.0-28.6); CALCIUM 7.7 mg/dL (8.5-10.1); CREATININE, SERUM 0.84 mg/dL (0.55-1.02); MAGNESIUM 1.9 mg/dL (1.8-2.4); POTASSIUM 3.5 mmol/L (3.5-5.1)
--- NOTE | 2024-05-28 21:25 | NUR ---
PATIENTS LABS DRAWN PER PROTOCOL AND SENT TO LAB. PATIENTS VITALS TAKEN AND RECORDED. INTAKE AND OUTPUT RECORDED. PATIENTS PM MEDS GIVEN PER ORDER. PATIENTS IV X2 SL PER ORDER. PATIENT DENIES ANY PAIN OR NAUSEA. PATIENT PROVIDED FRESH ICE WATER. PATIENT DENIES ANY NEEDS. CALL LIGHT IN REACH.
--- NOTE | 2024-05-28 22:36 | NUR ---
PATIENT IS RESTING IN BED ON PHONE. PATIENT UPDATE ON PLAB OF CARE. ALL QUESTIONS ANSWERED. NO NEEDS NOTED. CALL LIGHT IN REACH.
[2024-05-28] MEDS ORDERED: POTASSIUM PHOSPHATE ONE (23:07)
[2024-05-29] MEDS ORDERED: CALCIUM GLUCONATE 2,000 MG in DEXTROSE 5% 100 ML IV SCH
--- NOTE | 2024-05-29 00:28 | NUR ---
PATIENT IS RESTING IN BED. IV INFUSING PER ORDER. PATIENT DENIES ANY NEEDS. CALL LIGHT IN REACH.
--- NOTE | 2024-05-29 02:09 | NUR ---
PATIENT IS RESTING IN BED. NO NEEDS NOTED. CALL LIGHT IN REACH. IV INFUSING PER ORDER.
--- NOTE | 2024-05-29 04:00 | NUR ---
PATIENT IS RESTING IN BED WITH EYES CLOSED, RR 15. TELE #6, HR 72. IV INFUSING PER ORDER.
[2024-05-29 05:12] VITALS: BP 108/69
--- NOTE | 2024-05-29 05:13 | NUR ---
PATIENT UP TO BR IND. PATIENT ABLE TO VOID. PATIENT IS NACK IN BED RESTING. VITALS TAKEN AND RECORDED. PATIENTS INTAKE AND OUTPUT RECORDED. PATIENTS IV INFUSING PER ORDER. UPDATED LAB THAT PATIENTS BLOOD DRAW WOULD BE DELAYED DUE TO INFUSION. THIS RN WILL NOTIFY LAB WHEN BLOOD DRAW. PATIENT DENIES ANY NAUSEA. PATIENT DENIES ANY NEEDS. CALL LIGHT IN REACH. FRESH ICE WATER PROVIDED.
--- NOTE | 2024-05-29 05:57 | NUR ---
IV INFUSION COMPLETED. PATIENT IS NOW SL PER ORDER. PLACED CALL TO LAB TO HAVE THEM DRAW PATIENTS AM LABS.
[2024-05-29 06:26] LABS: ALBUMIN 2.9 g/dL (3.4-5.0); ANION GAP 13.1 (7-21); BUN/CREATININE RATIO 5.81 (6.0-28.6); CALCIUM 7.5 mg/dL (8.5-10.1); CREATININE, SERUM 0.86 mg/dL (0.55-1.02); MAGNESIUM 1.6 mg/dL (1.8-2.4); PHOSPHORUS, INORGANIC 3.7 mg/dL (2.5-4.9); POTASSIUM 4.1 mmol/L (3.5-5.1)
--- NOTE | 2024-05-29 06:30 | NUR ---
PATIENTS AM MEDS GIVEN PER ORDER. PATIENT IS RESTING IN BED ON PHONE. PATIENT DENIES ANY NEEDS. CALL LIGHT IN REACH.
[2024-05-29] MEDS ORDERED: MAGNESIUM SULFATE 2 GM/50 ML BAG IV SCH (07:00)
[2024-05-29] MEDS ORDERED: CALCIUM GLUCONATE 1,000 MG/10 ML VIAL IV ONE (07:00)
--- NOTE | 2024-05-29 07:34 | NUR ---
PT AWAKE AND INTERACTIVE AT TIME OF SHIFT REPORT. SITTING UP IN BED WATCHING TV. FRESH H20 PROVIDED SHE DENIES ANY OTHER NEEDS. CALL LIGHT AND NEEDED ITEMS ON BEDSIDE TABLE, PT AGREES SHE IS COMFORTABLE
[2024-05-29] MEDS ORDERED: Calcium Gluconate in NS 1,000 MG/50 ML BAG IV SCH (08:00)
[2024-05-29] MEDS ORDERED: PANTOPRAZOLE SODIUM 40 MG TABEC PO SCH (09:00)
[2024-05-29] MEDS ORDERED: atenoloL 25 MG TAB PO SCH ×2 (09:00)
[2024-05-29 09:24] VITALS: BP 97/59
--- NOTE | 2024-05-29 09:33 | NUR ---
PT SITTING UP IN BED TALKING WITH A VISITOR DENIES DISCOMFORTS OR NEEDS. DENIES ANY DISCOMFORTS WITH MORNING MEAL
--- NOTE | 2024-05-29 10:04 | NUR ---
STATES SHE IS READY TO GO HOME. CONTINUES TO DENY ANY CASE MANAGEMENT NEEDS AT THIS TIME.
[2024-05-29 10:15] VITALS: BP 97/59
--- NOTE | 2024-05-29 11:08 | NUR ---
PT SITTING UP IN BED DENIES DISOCMFORTS OR NEEDS. SHE REPORTS NO PROBLEMS WITH SWALLOW OR NAUSEA THIS SHIFT AND IS EATING WELL.
--- NOTE | 2024-05-29 12:45 | NUR ---
PT REPORTS DR CURRY WAS IN EARLIER, SHE IS HOPING TO GO HOME LATER TODAY. PT STATES SHE FEELS READY AND SHE FEELS GOOD.
--- NOTE | 2024-05-29 13:06 | NUR ---
VISITED DURING SPIRITUAL CARE ROUNDS. PT STATED FEELING MUCH BETTER, EXPRESSED GRATITUDE FOR CARE. NARROW FABRIC LOOM FIXER PROVIDED SUPPORTIVE PRESENCE, HOSPITALITY, PRAYER.
[2024-05-29 14:05] VITALS: BP 108/57
[2024-05-29 14:20] LABS: ANION GAP 9.6 (7-21); BUN/CREATININE RATIO 5.49 (6.0-28.6); CALCIUM 7.8 mg/dL (8.5-10.1); CREATININE, SERUM 0.91 mg/dL (0.55-1.02); MAGNESIUM 2.4 mg/dL (1.8-2.4); PHOSPHORUS, INORGANIC 2.3 mg/dL (2.5-4.9); POTASSIUM 3.6 mmol/L (3.5-5.1)
--- NOTE | 2024-05-29 14:52 | NUR ---
DR CURRY IN TO SEE PT RECOMMENDS SHE STAY DUE TO ALTERED LABS. PT ASKS QUESTIONS AND THEN CHOOSES TO GO HOME. DR CURRY IS INFORMATIVE AND ANSWERS ALL HER QUESTIONS AND AGAIN REPEATS ADVICE TO STAY FOR INFUSION. PT DECLINES AND INSISTS SHE BE DC'D
[2024-05-29] MEDS ORDERED: ATENOLOL25 MG PO (14:58)
[2024-05-29] MEDS ORDERED: PANTOPRAZOLE SO40 MG PO (14:59)
[2024-05-29] MEDS ORDERED: METOCLOPRAMIDE H5 MG PO (14:59)
[2024-05-30 10:05] LABS: CALCIUM IONIZED PH 7.4 1.16 mmol/L (1.09-1.30); CALCIUM,IONIZED SERUM 1.12 mmol/L (1.09-1.30)
== END 2024-05-29 14:45 | disposition home or self-care (01) | DRG 683 ==
LOC: ED 16:29 → MS 18:30
PROVIDERS: Emergency Medicine; Student in an Organized Health Care Education/Training Program; ADMIT Student in an Organized Health Care Education/Training Program; ATTEND Student in an Organized Health Care Education/Training Program
DX: N17.9 Acute kidney failure, unspecified (principal); E46 Unspecified protein-calorie malnutrition; E87.3 Alkalosis; N39.0 Urinary tract infection, site not specified; Z68.1 Body mass index [BMI] 19.9 or less, adult; E87.6 Hypokalemia; E83.42 Hypomagnesemia; K22.2 Esophageal obstruction; K57.10 Diverticulosis of small intestine without perforation or abscess without bleeding; K21.9 Gastro-esophageal reflux disease without esophagitis; E83.39 Other disorders of phosphorus metabolism; F17.210 Nicotine dependence, cigarettes, uncomplicated; E83.51 Hypocalcemia; Z85.3 Personal history of malignant neoplasm of breast; Z88.8 Allergy status to other drugs, medicaments and biological substances; Z88.2 Allergy status to sulfonamides; Z87.81 Personal history of (healed) traumatic fracture; Z87.442 Personal history of urinary calculi; Z86.79 Personal history of other diseases of the circulatory system; Z90.49 Acquired absence of other specified parts of digestive tract; Z98.890 Other specified postprocedural states; Z90.10 Acquired absence of unspecified breast and nipple; Z79.82 Long term (current) use of aspirin; Z79.899 Other long term (current) drug therapy; Z98.84 Bariatric surgery status
CPT/HCPCS: 36415; 80048; 80053; 81001; 82040; 82785; 83690; 83735; 84100; 85025; 87088; 93005; 93010; 96361; 96365; 96366; 96368; 96372; 96375; 96376; 99285-25; A9270; G0378; J0696; J1650; J2405; J2470; J2765; J3475; J3480; J3490; J7030; J7042; J7060; J7121

== ENCOUNTER 2025-05-31 15:06 | Emergency (ER) | payer OTHER ==
[~2025-05-31] VITALS: Ht 170.2 cm; Wt 64.4 kg
[~2025-05-31 15:06] MED LIST changes: +ADULT ASPIRIN R81 MG PO; +FAMOTIDINE40 MG PO; +FARXIGA5 MG PO; +FISH OIL 1,0001 EAC6 PO; +METOCLOPRAMIDE H5 MG PO; +MULTIVITAMIN1 EACH PO; +PANTOPRAZOLE SO40 MG PO; +PROLIA60 MG/1 ML SUB-Q; +SUCRALFATE1 GM/10 ML PO; +TURMERIC CURCU500 MG PO; +VITAMIN D21250 MCG PO
[2025-05-31 16:17] LABS: BASOPHILS 0.5 % (0.1-1.2); EOSINOPHILS 1.6 % (0.7-5.8); LYMPHOCYTES 32.8 % (19.3-51.7); MCH 28.7 PG (25.6-32.2); MCHC 32.4 g/dL (32.2-35.5); MCV 88.4 fL (79.4-94.8); MONOCYTES 5.9 % (4.7-12.5); NEUTROPHILS 59.0 % (34.0-71.1); RBC 4.92 M/uL (3.93-5.22)
[2025-05-31 16:29] LABS: ALT (SGPT) 25.0 U/L (14-59); AST (SGOT) 20.0 U/L (15-37); GLOMERULAR FILTRATION RATE,EST 55.0 mL/min (>60); PROTEIN, TOTAL 7.3 g/dL (6.4-8.2); UREA NITROGEN 16.0 mg/dL (7-18)
[2025-05-31] MEDS ORDERED: METOCLOPRAMIDE HCL 10 MG/2 ML SDV IV ONE (16:45)
[2025-05-31] MEDS ORDERED: SODIUM CHLORIDE 0.9% 1,000 ML IV ONE (16:45)
[2025-05-31] MEDS ORDERED: KETOROLAC TROMETHAMINE 15 MG/ML VIAL IV ONE (16:45)
[2025-05-31] MEDS ORDERED: REGLAN10 MG PO (19:05)
[2025-05-31 19:15] VITALS: BP 105/83
--- NOTE | 2025-06-02 09:24 | EKG ---
[facility] [address] [place] [address] Signed Normal sinus rhythm Normal ECG When compared with ECG of 25-MAY-2024 18:13, No significant change was found Confirmed by Phil Garcia DO ([id number]) on 06/02/2025 9:24:00 AM Electronically Signed By: PHIL GARCIA DO 06/02/25 0924 PATIENT NAME: DEVIKA CHAPMAN ADDI Electrocardiogram DATE OF : 68 PHYSICIAN: PHIL GARCIA DO REPORT #: [id number] REPORT IS CONFIDENTIAL AND NOT TO BE RELEASED WITHOUT AUTHORIZATION
== END 2025-05-31 19:16 | disposition home or self-care (01) ==
LOC: ED 15:06
PROVIDERS: Emergency Medicine
DX: G43.109 Migraine with aura, not intractable, without status migrainosus (principal); F17.200 Nicotine dependence, unspecified, uncomplicated; Z88.8 Allergy status to other drugs, medicaments and biological substances; Z88.2 Allergy status to sulfonamides; Z88.1 Allergy status to other antibiotic agents; Z79.82 Long term (current) use of aspirin; Z79.899 Other long term (current) drug therapy
CPT/HCPCS: 36415; 70450; 80053; 83735; 84484; 85025; 93005; 93010; 96374; 96375; 99284-25; J1885; J2765; J7030

== ENCOUNTER 2025-06-16 02:20 | Emergency (ER) | payer OTHER ==
[~2025-06-16] VITALS: Ht 170.2 cm; Wt 66.8 kg
[~2025-06-16 02:20] MED LIST changes: +REGLAN10 MG PO
[2025-06-16 03:30] VITALS: BP 121/95
--- NOTE | 2025-06-16 19:41 | EKG ---
[facility] [address] [place] [address] Signed Sinus rhythm with fusion complexes Low voltage QRS Borderline ECG When compared with ECG of 31-MAY-2025 15:33, fusion complexes are now present Confirmed by Phil Garcia DO ([id number]) on 06/16/2025 7:41:22 PM Electronically Signed By: PHIL GARCIA DO 06/16/251940 PATIENT NAME: ADELADEVIKAROSA FONTANA Electrocardiogram DATE OF : 68 PHYSICIAN: PHIL GARCIA DO REPORT #: [id number] REPORT IS CONFIDENTIAL AND NOT TO BE RELEASED WITHOUT AUTHORIZATION
== END 2025-06-16 03:29 | disposition home or self-care (01) ==
LOC: ED 02:20
DX: R00.2 Palpitations (principal); F17.200 Nicotine dependence, unspecified, uncomplicated; Z87.442 Personal history of urinary calculi; N18.30 Chronic kidney disease, stage 3 unspecified
CPT/HCPCS: 93005; 93010; 99284

== ENCOUNTER 2025-07-10 01:17 | Emergency (ER) | payer OTHER ==
[~2025-07-10] VITALS: Ht 170.2 cm; Wt 66.8 kg
--- OUTSIDE RECORDS SUMMARY | ~2025-07-10 | XMS | Continuity of Care Document ---
Demographics + + + | Address | [address] | | | [place] [address] | + + + | Preferred Language | Unknown | + + + | Marital Status | | + + + | Amish Affiliation | Unknown | + + + | Race | White | + + + | Ethnic Group | Not or | + + + Author + + + | Author | [facility] | + + + | Organization | [facility] | + + + | Address | [address] | | | [place] [address] | + + + | Phone | | + + + Care Team Providers + + + + | Care Decal Transferrer Name | Role | Phone | + + + + Unavailable | Unavailable | + + + + Unavailable | Unavailable | + + + + Allergies and Intolerances + + + + + + | date | description | facility | reaction | severity | + + + + + + | 2025-06-16 | | [facility] - | Nausea and | Moderate | | 00:00 | Sulfamethoxazol | [facility] | | | + + + + + + | 2025-06-16 | Trimethoprim | [facility] - | Nausea and | Moderate | | 00:00 | | [facility] | | | + + + + + + | 2025-06-16 | Lisinopril | [facility] - | Urticaria | Mild | | 00:00 | | [facility] | | | + + + + + + | 2025-06-16 | Anastrozole | [facility] - | (no reaction) | (no severity) | | 00:00 | | [facility] | | | + + + + + + | 2025-06-16 | Lisinopril | [facility] - | Urticaria | Mild | | 00:00 | | [facility] | | | + + + + + + | 2025-06-16 | Anastrozole | [facility] - | (no reaction) | (no severity) | | 00:00 | | [facility] | | | + + + + + + | 2025-06-16 | Trimethoprim | [facility] - | Nausea and | Moderate | | 00:00 | | [facility] | | | + + + + + + | 2025-06-16 | | [facility] - | Nausea and | Moderate | | 00:00 | Sulfamethoxazol | [facility] | | | + + + + + + | 2025-06-16 | Anastrozole | [facility] - | (no reaction) | (no severity) | | 00:00 | | [facility] | | | + + + + + + | 2025-06-16 | Trimethoprim | [facility] - | Nausea and | Moderate | | 00:00 | | [facility] | | | + + + + + + | 2025-06-16 | Lisinopril | [facility] - | Urticaria | Mild | | 00:00 | | [facility] | | | + + + + + + | 2025-06-16 | | [facility] - | Nausea and | Moderate | | 00:00 | Sulfamethoxazol | [facility] | | | + + + + + + Encounters No information. Functional Status No information. Immunizations No information. Medications + + + + | date | description | facility | + + + + | (no date) | MEDROXYPROGESTERONE | [facility] | | | ACETATE | [facility] | + + + + | (no date) | Ergocalciferol (Vitamin | [facility] | | | D2) | [facility] | + + + + | (no date) | DAPAGLIFLOZIN PROPANEDIOL | [facility] | | | | [facility] | + + + + | (no ) | ATENOLOL | [facility] | | | | [facility] | + + + + | 2025-05-31 00:00 | METOCLOPRAMIDE HCL | [facility] | | | | [facility] | + + + + | (no date) | MAGNESIUM | [facility] | | | | [facility] | + + + + | (no date) | FAMOTIDINE | [facility] | | | | [facility] | + + + + | (no date) | Aspirin | [facility] | | | | [facility] | + + + + | (no date) | EXEMESTANE | [facility] | | | | [facility] | + + + + | (no date) | IBUPROFEN | [facility] | | | | [facility] | + + + + | (no date) | SUCRALFATE | [facility] | | | | [facility] | + + + + | (no date) | ASPIRIN | [facility] | | | | [facility] | + + + + | (no date) | HYDROCODONE | [facility] | | | BIT/ACETAMINOPHEN | [facility] | + + + + | (no date) | HYDROCODONE | [facility] | | | BIT/ACETAMINOPHEN | [facility] | + + + + | (no date) | METOPROLOL SUCCINATE | [facility] | | | | [facility] | + + + + | (no date) | Denosumab | [facility] | | | | [facility] | + + + + Problems No information. Procedures No information. Results/Labs +--------+--------+ +---------+--------+---------+ | test | date | facility | value | unit | notes | +--------+--------+ +---------+--------+---------+ + + | Result panel 1 | + + + + + +--------+ + + | WBC # Bld | 2025-05-31 | | 6.43 | (missing) | (missing) | | Auto | 15:41:07 [facility] | | [facility] | | | | + + + +--------+ + + + + | Result panel 2 | + + + + + +--------+ + + | Lymphocytes | 2025-05-31 | | 32.8 | (missing) | (missing) | | NFr Bld | 15:41:07 | [facility] | | | | | Auto | [facility] | | | | + + + +--------+ + + + + | Result panel 3 | + + + + + +-------+ + + | Monocytes | 2025-05-31 | | 5.9 | (missing) | (missing) | | NFr Bld Auto | 15:41:07 | [facility] | | [facility] | | | | + + + +-------+ + + + + | Result panel 4 | + + + + + +-------+ + + | Eosinophil | 2025-05-31 | | 1.6 | (missing) | (missing) | | NFr Bld Auto | 15:41:07 | [facility] | | | | + + + +-------+ + + + + | Result panel 5 | + + + + + +-------+ + + | Basophils | 2025-05-31 | | 0.5 | (missing) | (missing) | | NFr Bld Auto | 15:41:07 | [facility] | | | | + + + +-------+ + + + + | Result panel 6 | + + + + + +------+---------+ + | Glucose | 2025-05-31 | | 90 | mg/dL | (missing) | | [facility] | 15:41:07 | [facility] | [facility] | | | | + + + +------+---------+ + + + | Result panel 7 | + + + + + +------+---------+ + | BUN | 2025-05-31 | | 16 | mg/dL | (missing) | | [facility] | 15:41:07 | [facility] | | | | + + + +------+---------+ + + + | Result panel 8 | + + + + + +--------+---------+ + | Creat | 2025-05-31 | | 1.17 | mg/dL | (missing) | | [facility] | 15:41:07 | [facility] | [facility] | | | | + + + +--------+---------+ + + + | Result panel 9 | + + + + + +------+ + + | eGFRcr | 2025-05-31 | | 55 | (missing) | (missing) | | SerPlBld | 15:41:07 | [facility] | | | | | CKD-EPI 2020 | [facility] | | | | + + + +------+ + + + + | Result panel 10 | + + + + + +---------+ + + | BUN/Creat | 2025-05-31 | | 13.67 | (missing) | (missing) | | SerPl | 15:41:07 | [facility] | [facility] | | | | + + + +---------+ + + + + | Result panel 11 | + + + + + +-------+ + + | Sodium | 2025-05-31 | | 139 | (missing) | (missing) | | SerPl-sCnc | 15:41:07 | [facility] | [facility] | | | | + + + +-------+ + + + + | Result panel 12 | + + + + + +--------+ + + | RBC # Bld | 2025-05-31 | | 4.92 | (missing) | (missing) | | Auto | 15:41:07 | [facility] | [facility] | | | | + + + +--------+ + + + + | Result panel 13 | + + + + + +-------+ + + | Potassium | 2025-05-31 | | 3.4 | (missing) | (missing) | | SerPl-sCnc | 15:41:07 | [facility] | | [facility] | | | | + + + +-------+ + + + + | Result panel 14 | + + + + + +-------+ + + | Chloride | 2025-05-31 | | 103 | (missing) | (missing) | | SerPl-sCnc | 15:41:07 | [facility] | | | [facility] | | | | + + + +-------+ + + + + | Result panel 15 | + + + + + +------+ + + | CO2 | 2025-05-31 | | 29 | (missing) | (missing) | | SerPl-sCnc | 15:41:07 | [facility] | | | | [facility] | | | | + + + +------+ + + + + | Result panel 16 | + + + + + +--------+ + + | Anion Gap | 2025-05-31 | | 10.4 | (missing) | (missing) | | SerPl | 15:41:07 | [facility] | | | | | Calculated.4 | [facility] | | | | + + + +--------+ + + + + | Result panel 17 | + + + + + +-------+---------+ + | Calcium | 2025-05-31 | | 9.0 | mg/dL | (missing) | | [facility] | 15:41:07 | [facility] | [facility] | | | | + + + +-------+---------+ + + + | Result panel 18 | + + + + + +-------+---------+ + | Magnesium | 2025-05-31 | | 2.2 | mg/dL | (missing) | | SerPl-mCnc | 15:41:07 | [facility] | | | | + + + +-------+---------+ + + + | Result panel 19 | + + + + + +-------+ + + | Prot | 2025-05-31 | | 7.3 | (missing) | (missing) | | SerPl-mCnc | 15:41:07 | [facility] | | | | + + + +-------+ + + + + | Result panel 20 | + + + + + +-------+ + + | Albumin | 2025-05-31 | | 3.9 | (missing) | (missing) | | [facility] | 15:41:07 | [facility] | | | | + + + +-------+ + + + + | Result panel 21 | + + + + + +-------+ + + | Globulin | 2025-05-31 | | 3.4 | (missing) | (missing) | | Ser-luis | 15:41:07 | [facility] | [facility] | | | | + + + +-------+ + + + + | Result panel 22 | + + + + + +--------+ + + | | 2025-05-31 | | 1.15 | (missing) | (missing) | | Albumin/Glob | 15:41:07 | [facility] | | | | | Ser[facility] | [facility] | | | | + + + +--------+ + + + + | Result panel 23 | + + + + + +--------+ + + | Hgb | 2025-05-31 | | 14.1 | (missing) | (missing) | | Bld-mCnc | 15:41:07 | [facility] | [facility] | | | | + + + +--------+ + + + + | Result panel 24 | + + + + + +-------+---------+ + | Bilirub | 2025-05-31 | | 0.4 | mg/dL | (missing) | | [facility] | 15:41:07 | [facility] | | | | + + + +-------+---------+ + + + | Result panel 25 | + + + + + +------+ + + | AST | 2025-05-31 | | 20 | (missing) | (missing) | | [facility] | 15:41:07 | [facility] | | | | + + + +------+ + + + + | Result panel 26 | + + + + + +------+ + + | ALT | 2025-05-31 | | 25 | (missing) | (missing) | | [facility] | 15:41:07 | [facility] | | | | + + + +------+ + + + + | Result panel 27 | + + + + + +------+ + + | ALP | 2025-05-31 | | 62 | (missing) | (missing) | | SerPl-cCnc | 15:41:07 | [facility] | | | | + + + +------+ + + + + | Result panel 28 | + + + + + +-------+ + + | Troponin I | 2025-05-31 | | 5.6 | (missing) | (missing) | | SerPl | 15:41:07 | [facility] | | | | | HS-mCnc [facility] | | | | + + + +-------+ + + + + | Result panel 29 | + + + + + +--------+ + + | Hct VFr.DF | 2025-05-31 | | 43.5 | (missing) | (missing) | | Bld Auto | 15:41:07 | [facility] | | | | + + + +--------+ + + + + | Result panel 30 | + + + + + +--------+ + + | RBC Auto | 2025-05-31 | | 88.4 | (missing) | (missing) | | | 15:41:07 | [facility] | | | | + + + +--------+ + + + + | Result panel 31 | + + + + + +--------+ + + | MCH RBC Qn | 2025-05-31 | | 28.7 | (missing) | (missing) | | Auto | 15:41:07 | [facility] | | | | + + + +--------+ + + + + | Result panel 32 | + + + + + +--------+ + + | MCHC RBC | 2025-05-31 | | 32.4 | (missing) | (missing) | | Auto-EntMCnc | 15:41:07 | [facility] | | | | + + + +--------+ + + + + | Result panel 33 | + + + + + +-------+ + + | Platelet # | 2025-05-31 | | 240 | (missing) | (missing) | | Bld Auto | 15:41:07 | [facility] | | | | + + + +-------+ + + + + | Result panel 34 | + + + + + +--------+ + + | Neutrophils | 2025-05-31 | | 59.0 | (missing) | (missing) | | NFr Bld | 15:41:07 | [facility] | | | | | Auto | [facility] | | | | + + + +--------+ + + Social History +--------+ + + | date | description | facility | +--------+ + + Vital Signs + + + +---------+ | date | measurement | value | units | + + + +---------+ | 2025-05-31 00:00 | BMI | 22.2 | kg/m2 | + + + +---------+ | 2025-05-31 00:00 | BP_diastolic | 83 | mmHg | + + + +---------+ | 2025-05-31 00:00 | BP_systolic | 105 | mmHg | + + + +---------+ | 2025-05-31 00:00 | heart_rate | 62 | /min | + + + +---------+ | 2025-05-31 00:00 | height_metric | 170.18 | cm | + + + +---------+ | 2025-05-31 00:00 | height_standard | 67 | in | + + + +---------+ | 2025-05-31 00:00 | o2_saturation | 100 | % | + + + +---------+ | 2025-05-31 00:00 | respiration_rate | 14 | /min | + + + +---------+ | 2025-05-31 00:00 | | 97.2 | F | | | temperature_standar | | | | | d | | | + + + +---------+ | 2025-05-31 00:00 | weight_metric | 64.399 | kg | + + + +---------+ | 2025-05-31 00:00 | weight_standard | 141.975 | lb | + + + +---------+ | 2025-06-16 00:00 | BMI | 23.1 | kg/m2 | + + + +---------+ | 2025-06-16 00:00 | BP_diastolic | 95 | mmHg | + + + +---------+ | 2025-06-16 00:00 | BP_systolic | 121 | mmHg | + + + +---------+ | 2025-06-16 00:00 | heart_rate | 57 | /min | + + + +---------+ | 2025-06-16 00:00 | height_metric | 170.18 | cm | + + + +---------+ | 2025-06-16 00:00 | height_standard | 67 | in | + + + +---------+ | 2025-06-16 00:00 | o2_saturation | 99 | % | + + + +---------+ | 2025-06-16 00:00 | respiration_rate | 17 | /min | + + + +---------+ | 2025-06-16 00:00 | | 98.4 | F | | | temperature_standar | | | | | d | | | + + + +---------+ | 2025-06-16 00:00 | weight_metric | 66.8 | kg | + + + +---------+ | 2025-06-16 00:00 | weight_standard | 147.268 | lb | + + + +---------+"
[2025-07-10] MEDS ORDERED: SODIUM CHLORIDE 0.9% 500 ML IV PRN (01:45)
[2025-07-10 01:51] LABS: BASOPHILS 0.8 % (0.1-1.2); EOSINOPHILS 3.1 % (0.7-5.8); LYMPHOCYTES 42.5 % (19.3-51.7); MCH 29.1 PG (25.6-32.2); MCHC 32.8 g/dL (32.2-35.5); MCV 88.9 fL (79.4-94.8); MONOCYTES 7.5 % (4.7-12.5); NEUTROPHILS 45.9 % (34.0-71.1); RBC 4.70 M/uL (3.93-5.22)
[2025-07-10 02:06] LABS: AST (SGOT) 15.0 U/L (15-37); GLOMERULAR FILTRATION RATE,EST 63.0 mL/min (>60); PROTEIN, TOTAL 6.9 g/dL (6.4-8.2); UREA NITROGEN 18.0 mg/dL (7-18)
[2025-07-10 02:27] LABS: ALT (SGPT) 25.0 U/L (14-59)
[2025-07-10] MEDS ORDERED: PROPRANOLOL HCL10 MG PO (02:40)
[2025-07-10] MEDS ORDERED: ACETAMINOPHEN 500 MG TAB PO ONE (02:45)
[2025-07-10 02:57] VITALS: BP 110/70
--- NOTE | 2025-07-10 19:01 | EKG ---
[facility] [address] [facility] [place] [address] Signed Normal sinus rhythm Low voltage QRS Borderline ECG When compared with ECG of 16-JUN-2025 02:37, fusion complexes are no longer present ST now depressed in Anterior leads Confirmed by Carmita Lay MD () on 07/10/2025 7:01:03 PM Electronically Signed By: CARMITA LAY MD 07/10/251900 PATIENT NAME: DEVIKA CHAPMAN Electrocardiogram DATE OF : 68 PHYSICIAN: CARMITA LAY MD REPORT #: [id number] REPORT IS CONFIDENTIAL AND NOT TO BE RELEASED WITHOUT AUTHORIZATION
== END 2025-07-10 02:57 | disposition home or self-care (01) ==
LOC: ED 01:17
PROVIDERS: Family Medicine
DX: R00.2 Palpitations (principal); R09.89 Other specified symptoms and signs involving the circulatory and respiratory systems; F17.200 Nicotine dependence, unspecified, uncomplicated; Z79.82 Long term (current) use of aspirin; Z79.899 Other long term (current) drug therapy; Z88.1 Allergy status to other antibiotic agents; Z88.8 Allergy status to other drugs, medicaments and biological substances
CPT/HCPCS: 36415; 80053; 83735; 85025; 85379; 93005; 93010; 99285; A9270

== ENCOUNTER 2025-07-12 19:22 | Emergency (ER) | payer OTHER ==
[~2025-07-12] VITALS: Ht 170.2 cm; Wt 67.4 kg
--- OUTSIDE RECORDS SUMMARY | ~2025-07-12 | XMS | Continuity of Care Document ---
Demographics + + + | Address | [address] | | | [place] [address] | + + + | Preferred Language | Unknown | + + + | Marital Status | | + + + | Scientologist Affiliation | Unknown | + + + | Race | White | + + + | Ethnic Group | Not or | + + + Author + + + | Author | [facility] | + + + | Organization | [facility] | + + + | Address | [address] | | | [place] [address] | + + + | Phone | | + + + Care Team Providers + + + + | Care Youth Pastor Name | Role | Phone | + [...] | (no date) | Ergocalciferol (Vitamin | [facility] | | | D2) | [facility] | + + + + | (no date) | DAPAGLIFLOZIN PROPANEDIOL | [facility] | | | | [facility] | + + + + | (no ) | ATENOLOL | [facility] | | | | [facility] | + + + + | 2025-05-31 00:00 | METOCLOPRAMIDE HCL | [facility] | | | | [facility] | + + + + | (no date) | MAGNESIUM | [facility] | | | | [facility] | + + + + | (no date) | FAMOTIDINE | [facility] | | | | [facility] | + + + + | (no date) | Aspirin | [facility] | | | | [facility] | + + + + | (no date) | EXEMESTANE | [facility] | | | | [facility] | + + + + | (no date) | IBUPROFEN | [facility] | | | | [facility] | + + + + | (no date) | SUCRALFATE | [facility] | | | | [facility] | + + + + | (no date) | ASPIRIN | [facility] | | | | [facility] | + + + + | (no date) | HYDROCODONE | [facility] | | | BIT/ACETAMINOPHEN | [facility] | + + + + | (no date) | HYDROCODONE | [facility] | | | BIT/ACETAMINOPHEN | [facility] | + + + + | (no date) | METOPROLOL SUCCINATE | [facility] | | | | [facility] | + + + + | (no date) | Denosumab | [facility] | | | | [facility] | + + + + Problems No [...] 1.17 | mg/dL | (missing) | | [facility] | 15:41:07 | [facility] | | | [...] 9.0 | mg/dL | (missing) | | [facility] | 15[facility]41:07 | [facility] | | | [...] 25 | (missing) | (missing) | | [facility] | 15:41:07 | [facility] | | | [...]
[~2025-07-12 19:22] MED LIST changes: +PROPRANOLOL HCL10 MG PO
[2025-07-12] MEDS ORDERED: FAMOTIDINE 20 MG/ 2 ML VIAL IV ONE (20:45)
[2025-07-12] MEDS ORDERED: CETIRIZINE HCL 10 MG TAB PO ONE (20:45)
[2025-07-12] MEDS ORDERED: DEXAMETHASONE SOD PHOS 10 MG/ML VIAL IV ONE (20:45)
[2025-07-12] MEDS ORDERED: CETIRIZINE HCL10 MG PO (22:35)
[2025-07-12] MEDS ORDERED: CEPHALEXIN500 M1 PO (22:35)
[2025-07-12] MEDS ORDERED: methylPREDNISolone 4 MG HOME.PACK PO ONE (22:45)
[2025-07-12] MEDS ORDERED: CEPHALEXIN MONOHYDRATE 500 MG HOME.PACK PO ONE (22:45)
[2025-07-12 22:47] VITALS: BP 118/79
== END 2025-07-12 22:48 | disposition home or self-care (01) ==
LOC: ED 19:22
DX: L50.0 Allergic urticaria (principal); R07.89 Other chest pain; T36.8X5A Adverse effect of other systemic antibiotics, initial encounter; Z87.442 Personal history of urinary calculi; N18.30 Chronic kidney disease, stage 3 unspecified; F17.200 Nicotine dependence, unspecified, uncomplicated; Z79.899 Other long term (current) drug therapy
CPT/HCPCS: 96374; 96375; 99284-25; A9270; J1100; J1200